=== PATIENT | male | born 1945 | race Caucasian/White ===

== ENCOUNTER → 2023-03-19 11:37 | Outpatient (CLI) | payer MEDICARE, SELFPAY ==
--- NOTE | ~2023-03-19 | XR_ITS ---
Clinical Indication: Cough PA and lateral views of the chest: Comparison: None Findings: Moderate right pleural effusion and small left pleural effusion present. There is interstit ial pulmonary edema pattern.. Cardiomediastinal silhouette is within normal limits. Bones and soft t issues are unremarkable. Impression: Moderate right pleural effusion and small left pleural effusion, with interstitial pulmonary edema pa ttern. Reviewed, dictated and finalized at location . Impression: Moderate right pleural effusion and small left pleural effusion, with interstit ial pulmonary edema pattern.
== END ==
PROVIDERS: PCP Nurse Practitioner Family; Visit Provider Nurse Practitioner Family
DX: R05.9 Cough, unspecified (principal); R06.02 Shortness of breath; J90 Pleural effusion, not elsewhere classified; J81.1 Chronic pulmonary edema
CPT/HCPCS: 71046

== ENCOUNTER 2023-03-19 14:27 | Inpatient (IN) | payer MEDICARE, SELFPAY ==
[2023-03-19] VITALS (10 sets, daily range): BP systolic 126–150; BP diastolic 61–76; PULSE 67–79; RESP 20–28; TEMP 36.2–36.8; O2SAT 94–100; BMI 28.5
--- NOTE | ~2023-03-19 | XR_ITS ---
XR chest 1V portable DATE: 03/21/2023 09:11 INDICATION: Effusions TECHNIQUE: Portable upright AP views on 03/21/2023 at 0903 hours COMPARISON: 03/19/2023 PA and lateral chest FINDINGS: There is pulmonary vascular congestion and redistribution. There are bilateral pulmonary Ke rley B-lines. There is evidence of minor fissure. There are bilateral pleural effusions. The findings are consistent with congestive changes. There are bibasilar infiltrates and/or atelectasis. There is diminished right pleural effusion following 03/20/2023 thoracentesis. No pneumothorax. Degenerative spurring and mild dextroscoliosis of the thoracic spine. Osteopenia. IMPRESSION: Diminished right pleural effusion following 03/20/2023 thoracentesis; no pneumothorax Congestive changes including pulmonary interstitial and subpleural edema and bilateral mild pleural e ffusions Prominent bibasilar infiltrate and/atelectasis Reviewed, dictated and finalized at location B. IMPRESSION: Diminished right pleural effusion following 03/20/2023 thoracentesis ; no pneumothorax Congestive changes including pulmonary interstitial and subpleural edema and bi lateral mild pleural effusions Prominent bibasilar infiltrate and/atelectasis
--- NOTE | ~2023-03-19 | CT_ITS ---
EXAMINATION: CT abdomen pelvis w con DATE: 03/21/2023 15:40 INDICATION: Periaortic lymphadenopathy. TECHNIQUE: Computed tomography (CT) of the abdomen and pelvis was performed with 100 mL Omnipaque 350 intravenous contrast. Automated exposure control and iterative reconstruction technique were employe d. The dose-length product was 600.07 mGy-cm. COMPARISON: Chest CT 03/21/2023 FINDINGS: There are moderate-sized pleural effusions. There is dependent atelectasis bilaterally. The re is bilateral smooth septal thickening, consistent with pulmonary edema. Calcified bilateral lung n odules and calcified hilar lymph nodes are consistent with old granulomatous disease. There are cysts in the liver measuring up to 9 mm. Calcifications in the spleen are consistent with old granulomatou s disease. The gallbladder is normal. 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 The adrenal glands are normal. There is cortical thinning of the kidneys. There a re cysts in the kidneys measuring up to 3.0 cm on the right. There are brachytherapy seeds in the pro state. The prostate is mildly enlarged. There is an anastomosis in the rectosigmoid. There are change s of partial colectomy. There are no dilated loops of bowel. There are umbilical and supraumbilical v entral hernias containing fat. There is calcified atherosclerosis of the aorta and many of the other arteries. There is soft tissue thickening around the common iliac arteries, abdominal aorta, and thor acic aorta. This tissue is contiguous with thickened lower thoracic paraspinal soft tissue. There is soft tissue thickening around the kidneys, proximal ureters, renal vessels, and inferior vena cava. T here are mildly enlarged bilateral external iliac lymph nodes. There is subcutaneous fat stranding in the lower anterior abdominal wall, likely inflammation. There is sclerosis in T10 vertebral body. IMPRESSION: 1. Abnormal soft tissue in the posterior mediastinum and retroperitoneum suspicious for lymphoma. 2. Sclerotic lesion in T10 vertebral body suspicious for metastatic disease or lymphoma. 3. Mildly enlarged bilateral external iliac lymph nodes, which are indeterminate for lymphoma. 4. Pulmonary edema and moderate-sized pleural effusions. Reviewed, dictated and finalized at location A. IMPRESSION: 1. Abnormal soft tissue in the posterior mediastinum and retroperitoneum suspic ious for lymphoma. 2. Sclerotic lesion in T10 vertebral body suspicious for metastatic disease or lymphoma. 3. Mildly enlarged bilateral external iliac lymph nodes, which are indeterminat e for lymphoma. 4. Pulmonary edema and moderate-sized pleural effusions.
--- NOTE | ~2023-03-19 | US_ITS ---
EXAMINATION: US thoracentesis DATE: 03/20/2023 13:59 INDICATION: pleural effusion TECHNIQUE: The procedure and its risks, benefits, and alternatives were discussed with the patient. P otential risks discussed included bleeding, infection, and pneumothorax. The patient understood the r isks and agreed to proceed. The skin was prepped and draped in sterile fashion. 1% lidocaine was used for local anesthesia. Under ultrasound guidance, a 5 Fr catheter with trochar was advanced into the right pleural effusion. Fluid was aspirated. The catheter was removed, and a dressing was applied. Th ere were no immediate complications. FINDINGS: Ultrasound images demonstrate a right pleural effusion and the catheter within the fluid. IMPRESSION: 1. Successful ultrasound-guided thoracentesis yielding 1000 mL of clear, yellow fluid. Reviewed, dictated and finalized at location A. IMPRESSION: 1. Successful ultrasound-guided thoracentesis yielding 1000 mL of clear, yello w fluid.
--- NOTE | ~2023-03-19 | XR_ITS ---
EXAMINATION: [id number] DATE: 03/20/2023 14:06 INDICATION: Right pleural effusion status post thoracentesis. TECHNIQUE: Frontal and lateral views of the chest were obtained. COMPARISON: Chest 2 views 03/19/2023 FINDINGS: There is a diffuse interstitial pattern, consistent with mild pulmonary edema. There are sm all pleural effusions. There are airspace opacities at the lung bases, likely atelectasis. No pneumot horax. The heart size is normal. IMPRESSION: 1. Mild pulmonary edema. 2. Small pleural effusions with improvement on the right status post thoracentesis. Reviewed, dictated and finalized at location A. IMPRESSION: 1. Mild pulmonary edema. 2. Small pleural effusions with improvement on the right status post thoracente sis.
--- NOTE | ~2023-03-19 | CT_ITS ---
CT Scan of the Chest without Contrast: Clinical Indication: Pleural effusions Technique: Contiguous sections were acquired throughout the chest without intravenous contrast. Dose reduction technique was used on this scan by utilizing automated exposure control and iterative recon struction technique. The dose-length product (DLP) was 247.15 mGy-cm. Findings: There is no evidence of any significant mediastinal, hilar or axillary lymphadenopathy. Coronary mariama ry calcifications are present. No aortic aneurysm seen. No pericardial effusion. Moderate right pleural effusion and [id number] left pleural effusion are present. There is int erstitial thickening and mild patchy groundglass opacity may relate lungs. There is also diffuse subp leural reticulation in the aerated lungs. There is mild bibasilar compressive/passive atelectasis. Images through the upper abdomen reveal no abnormalities. There is an amorphous sclerotic lesion within the left side of the T10 vertebral body (sagittal image 68). Impression: Moderate right pleural effusion and [id number] left pleural effusion with mild bibasilar atele ctasis. Associated interstitial pulmonary edema, possible minimal alveolar component. Diffuse subpleural reticulation raises the possibility of mild underlying chronic interstitial diseas e. Amorphous sclerotic lesion in the T10 vertebral body, nonspecific. Osteoblastic or treated metastasis is a consideration, though no other osseous lesions are identified. MRI and/or bone scan could be co nsidered for further imaging evaluation. Correlation with [facility] other [facility] would also be very useful to assess for chronicity of this lesion. Reviewed, dictated and finalized at [facility]. Impression: Moderate right pleural effusion and [id number] left pleural effusion wit h mild bibasilar atelectasis. Associated interstitial pulmonary edema, possible minimal alveolar component. Diffuse subpleural reticulation raises the possibility of mild underlying chron ic interstitial disease. Amorphous sclerotic lesion in the T10 vertebral body, nonspecific. Osteoblastic or treated metastasis is a consideration, though no other osseous lesions are identified. MRI and/or bone scan could be considered for further imaging evalua tion. Correlation with any other prior exams at outside institutions would also be very useful to assess for chronicity of this lesion.
[2023-03-19 16:48] LABS: Basophils Percent Auto 0.3 % (0.2-1.2); Eosinophils Absolute Auto 0.1 K/mm3 (0-0.3); Eosinophils Percent Auto 1.1 % (0-4.4); Hematocrit 28.9 % (42.0-52.0); Hemoglobin 9.3 g/dL (14.0-18.0); Immature Granulocyte Absolute 0.33 K/mm3 (0.00-0.031); Immature Granulocyte Percent A 4.7 % (0-0.5); Lymphocytes Absolute Auto 2.53 K/mm3 (0.9-3.2); Lymphocytes Percent Auto 36.3 % (18.3-44.2); Mean Corpuscular HGB Conc 32.2 g/dl (32-36); Mean Corpuscular Hemoglobin 33.3 pg (26-34); Mean Corpuscular Volume 103.6 fl (80-100); Mean Platelet Volume 10.4 fl (7.4-10.4); Monocytes Absolute Auto 0.8 K/mm3 (0.1-0.6); Monocytes Percent Auto 11.5 % (2.6-8.5); Neutrophils Absolute Auto 3.2 K/mm3 (1.3-6.7); Neutrophils Percent Auto 46.1 % (45.5-73.1); Nucleated Red Blood Cells Absolute Auto 0.2 K/mm3 (0.0-0.012); Nucleated Red Blood Cells Perc 3.3 % (0.0-0.2); Platelet Count Result 369 k/mm3 (150-375); Red Blood Count 2.79 M/mm3 (4.6-6.20); Red Cell Distribution Width 28.2 % (11.5-14.5)
[2023-03-19 16:54] LABS: Alanine Aminotransferase 15 U/L (6-50); Albumin Level 3.6 g/dL (3.5-5.1); Alkaline Phosphatase 58 U/L (38-126); Anion Gap 5 mmol/L (8-16); Aspartate Amino Transferase 18 U/L (17-59); Bilirubin,Total 0.5 mg/dL (0.2-1.3); Blood Urea Nitrogen 23 mg/dL (9-20); Calcium 9.1 mg/dL (8.4-10.2); Carbon Dioxide 29 mmol/L (22-30); Chloride 105 mmol/L (98-107); Estimated CRCL calculation 34 ml/min; Estimated Glomerular Filt Rate 45; Glucose 219 mg/dL (65-110); Potassium 4.7 mmol/L (3.4-5.0); Sodium 139 mmol/L (137-145)
[2023-03-19 17:05] LABS: NT Pro B Type Natriuretic Pept 200 pg/mL (19.9-100); Troponin I < 0.012 ng/mL (0.000-0.034)
[2023-03-19 17:13] LABS: Platelet Estimate Adequate (Adequate)
[2023-03-19 17:15] LABS: Anisocytosis 3+ (NORMAL); Hypochromasia 1+ (NORMAL); Schistocytes None Seen (NORMAL)
[2023-03-19 17:16] LABS: Macrocytosis 2+ (NORMAL)
--- NOTE | 2023-03-19 17:41 | ED.URI ---
HPI - URI/Sore Throat General Chief Complaint: Upper Respiratory Infection <CASTILLO Cm Last Filed: 03/19/23 18:54> Stated Complaint: sent from PCP after chest x-ray <CASTILLO Cm Last Filed: 03/19/23 18:54> Time Seen by Provider: 03/19/23 16:14 <CASTILLO Cm Last Filed: 03/19/23 18:54> Source: patient <CASTILLO Cm Last Filed: 03/19/23 18:54> Mode of arrival: ambulatory <CASTILLO Cm Last Filed: 03/19/23 18:54> Limitations: no limitations <CASTILLO Cm Last Filed: 03/19/23 18:54> History of Present Illness HPI Narrative: Patient is a 78-year-old male who presents to the ED with report of abnormal chest x-ray. Patient reports having chronic shortness of breath for the last several years, stating it occurs at random. He notes he typically walks a mile and 1/2/day and does not feel increasingly winded with this. He does feel he has been having more frequent episodes of shortness of breath over the last week and a half. Patient had a routine appointment with his primary care doctor today and an outpatient chest x-ray was performed. Chest x-ray showed a moderate right pleural effusion and small left pleural effusion with interstitial edema. Patient was then referred here for further evaluation. Patient denies history of CHF. He does report minimal edema to his ankles bilaterally. Denies any chest pain. Denies any fevers. Denies sick contacts. <CASTILLO Cm Last Filed: 03/19/23 18:54> Related Data Home Medications: Home Medications Medication Instructions Recorded Confirmed folic acid 1 mg tablet 1 mg PO DAILY 12/18/20 03/19/23 sildenafil 25 mg tablet (Viagra) 25 mg PO DAILY PRN 12/18/20 03/19/23 <CASTILLO Cm Last Filed: 03/19/23 18:54> Allergies/Adverse Reactions: Allergies Allergy/AdvReac Type Severity Reaction Status Date / Time No Known Allergies Allergy Verified 03/19/23 14:28 <Taylor Sorensen PA-C - Last Filed: 03/19/23 18:54> Review of Systems Review of Systems: CONSTITUTIONAL: Denies fever, chills, or sweats. ENT: Denies rhinorrhea, congestion, sore throat. CARDIOVASCULAR: See HPI. RESPIRATORY: See HPI. GASTROINTESTINAL: Denies abdominal pain, nausea, vomiting. MUSCULOSKELETAL: Denies back pain, joint pain, or myalgia. <Taylor Sorensen PA-C - Last Filed: 03/19/23 18:54> All systems reviewed & are unremarkable except as noted in HPI and below <Taylor Sorensen PA-C - Last Filed: 03/19/23 18:54> PMFSH Past Medical History Medical History: Medical History Bilateral edema of lower extremity BMI 30.0-30.9,adult Cough Decreased exercise tolerance Diabetes type 2, controlled Diabetic eye exam Dr. Clemente 06/29/2020 Fatigue MDS (myelodysplastic syndrome), low grade Prostate cancer Screening for diabetic retinopathy (06/22/21) no diabetic retinopathy 06/22/2021 Shortness of breath Sun-damaged skin <Taylor Sorensen PA-C - Last Filed: 03/19/23 18:54> Family History Family History: Family History Other Diabetes mellitus <Taylor Sorensen PA-C - Last Filed: 03/19/23 18:54> Social History Social History: Social History Smoking status: Former smoker Second hand tobacco smoke exposure: No Alcohol intake: never Substance use: never Substance use type: does not use Current Housing: Decline to Answer Concerned About Future Housing: Decline to Answer Difficulty Paying Gas/Electric Bills: Decline to Answer Difficulty Paying for Meds: Decline to Answer Currently Unemployed: Decline to Answer Education: Decline to Answer Difficulty w/ Childcare or Family Care: Decline to Answer
--- NOTE | 2023-03-19 18:17 | PC.NURSE ---
Patient ambulated from the restroom to his room and his O2 SAT dropped down to 88%. Provider made aware.
--- NOTE | 2023-03-19 18:19 | ECG_ITS ---
Measurements Intervals Kamuela Rate: 70 P: 17 NE: 174 QRS: -22 QRSD: 90 T: 19 QT: 366 QTc: 397 Interpretive Statements SINUS RHYTHM DELAYED PRECORDIAL R/S TRANSITION BORDERLINE T WAVE ABNORMALITY- ANTERIOR LEADS BORDERLINE ECG NO PREVIOUS ECG AVAILABLE FOR COMPARISON Electronically Signed On 03-19-2023 21:02:13 CDT by Tio Philippe D.O.
--- NOTE | 2023-03-19 20:02 | PM.IMHP ---
H&P: HPI History of Present Illness Date/Time: 03/19/23 20:02 Chief Complaint: Abnormal chest x-ray. Narrative: Patient is a 78-year-old male with a past medical history including but not limited to ?MDS treated with Reblozyl [id number], who presents to the ED with report of abnormal chest x-ray.? Patient reports having chronic shortness of breath for the last several years, stating it occurs at random.? He notes he typically walks a mile and 1/2/day and does not feel increasingly winded with this.? He does feel he has been having more frequent episodes of shortness of breath over the last week and a half.? Patient had a routine appointment with his primary care doctor today and an outpatient chest x-ray was performed.? Chest x-ray showed a moderate right pleural effusion and small left pleural effusion with interstitial edema.? Patient was then referred here for further evaluation.? Patient denies history of CHF.? He does report minimal edema to his ankles bilaterally.? Denies any chest pain.? Denies any fevers.? Denies sick contacts. On arrival to the emergency department, the patient is stable and afebrile with fluid vital signs: A temperature of 97? poor oral F, pulse rate 78, respiration 20, blood pressure 140/61, pulse oximetry 100% on room air. He CBC shows a WBC of 7.0, hemoglobin 9.3, hematocrit 28.9 and a platelet count of 369. He has a serum chemistry shows a sodium of 139, potassium 4.7, chloride 105, bicarbonate 29, BUN 23, creatinine 1.5 and a glucose of 219. A chest x-ray reveals moderate right pleural effusion and small left pleural effusion, with interstitial pulmonary edema pattern. The hospital medicine service was consulted for further evaluation management. The patient will be admitted to the medical floor under observation status. Review of Systems Review of Systems: CONSTITUTIONAL: Denies fever, chills, or sweats. ENT: Denies rhinorrhea, congestion, sore throat. CARDIOVASCULAR: See HPI. RESPIRATORY: See HPI. GASTROINTESTINAL: Denies abdominal pain, nausea, vomiting. MUSCULOSKELETAL: Denies back pain, joint pain, or myalgia. All systems reviewed & are unremarkable except as noted in HPI and below PMFSH Past Medical History Medical History Bilateral edema of lower extremity BMI 30.0-30.9,adult Cough Decreased exercise tolerance Diabetes type 2, controlled Diabetic eye exam Dr. Clemente 06/29/2020 Fatigue MDS (myelodysplastic syndrome), low grade Prostate cancer Screening for diabetic retinopathy (06/22/21) no diabetic retinopathy 06/22/2021 Shortness of breath Sun-damaged skin Family History Family History Other Diabetes mellitus Social History Social History Smoking packs per day: 1 Smoking cigarettes per day: 20.0 Years smoked: 15 Smoking pack-years: 15.00 Smoking status: Former smoker Tobacco type: cigarettes Second hand tobacco smoke exposure: No Alcohol intake: never Substance use: never Substance use type: does not use Lack of Transportation: No Lack of Food: Never True Current Housing: I Have Housing Concerned About Future Housing: No Difficulty Paying Gas/Electric Bills: No Difficulty Paying for Meds: No Currently Unemployed: No Education: Bachelor's Degree Difficulty w/ Childcare or Family Care: No Spiritual care concerns: No Meds Home Medications and Allergies Home Medications Medication Instructions Recorded Confirmed Type folic acid 1 mg tablet 1 mg PO DAILY 12/18/20 03/19/23 History sildenafil 25 mg tablet (Viagra) 25 mg PO DAILY PRN ed 12/18/20 03/19/23 History Tradjenta 5 mg tablet (linagliptin) 5 mg PO QAM #90 tabs 11/04/22 03/19/23 Rx nebivolol 5 mg tablet (Bystolic) 5 mg PO DAILY #90 tabs 11/04/22 03/19/23 Rx insulin detemir U-100 100 unit/mL 45 unit (0.45 mL) subcut DAILY #45 0
[2023-03-19 20:42] LABS: Troponin I < 0.012 ng/mL (0.000-0.034)
[2023-03-19 21:24] LABS: Glucose Point of Care 126 mg/dl (65-105)
--- NOTE | 2023-03-19 21:41 | ADMGEN ---
This patient, Matthew Baez, was admitted to Medical Room 347-. Patient/family oriented to hospital policies and general routines including ID bracelet, bed and alarms, visiting hours, pain management, procedures, bathroom and other care routines, personal items, smoking policy, room service/diet, and visiting hours. Information on how to activate the Rapid Response Team has been discussed. Patient/Family are encouraged to report perceived risks to care and to ask questions if they do not understand what they are told or what they should do.
[2023-03-19 23:25] LABS: Troponin I < 0.012 ng/mL (0.000-0.034)
[2023-03-20] VITALS (12 sets, daily range): BP systolic 113–139; BP diastolic 62–87; PULSE 63–84; RESP 16–20; TEMP 36.3–36.7; O2SAT 96–98
[2023-03-20] MEDS: cefTRIAXone 2 GM/NS 100 ML 2 GM/100 ML BAG IVPB (03:19)
--- NOTE | 2023-03-20 06:00 | ECHO_ITS ---
Patient Info Name: Matthew Baez Age: 78 years : 1945 Gender: Male Ht: 67 in Wt: 183 lbs BSA: 2.00 m2 HR: 77 bpm BP: 131 / 87 mmHg Heart Rhythm: Sinus Rhythm Technical Quality: Good Exam Date: 03/20/2023 9:25 AM Exam Location: [facility] Patient Status: Outpatient Admit Date: 03/19/2023 Staff Ordering Physician: Taylor Sorensen PA-C [employer] Supervisor: Car Interiano RDCS Attending Provider: Roel Martel MD Referring Physician: Edu BRANDT; Exam Type: CA echo doppler color flow Study Info Indications - pul.edema/joy pluralal effusion/hypoxia Complete two-dimensional, color flow and Doppler transthoracic echocardiogram is performed. Summary 1. Complete two-dimensional, color flow and Doppler transthoracic echocardiogram is performed. 2. Left ventricular chamber dimension is normal. 3. Left ventricular systolic function is normal, estimated at 60-65%. 4. The left ventricular diastolic function is grade I diastolic dysfunction. 5. E/e' 5 is not elevated. 6. Left atrial chamber dimension is mildly enlarged. 7. There is moderate aortic valve sclerosis. 8. There is trace aortic valve regurgitation. 9. The mitral valve has mildly calcified annulus. 10. There is trace mitral valve regurgitation. 11. There is trace tricuspid valve regurgitation. 12. No pulmonary hypertension, estimated pulmonary arterial systolic pressure is 25 mmHg. Left Ventricle E/e' 5 is not elevated. Left ventricular chamber dimension is normal. Left ventricular systolic function is normal, estimated at 60-65%. The left ventricular diastolic function is grade I diastolic dysfunction. Right Ventricle Right ventricular systolic function is normal and with normal TAPSE 2.5 cm. Right ventricular chamber dimension is normal. Left Atria Left atrial chamber dimension is mildly enlarged. Right Atria Right atrial chamber dimension is normal. Aortic Valve The aortic valve is trileaflet. There is moderate aortic valve sclerosis. There is no aortic valve stenosis. There is trace aortic valve regurgitation. Pulmonic Valve There is no pulmonic regurgitation. Mitral Valve The mitral valve has mildly calcified annulus. There is no mitral valve stenosis. There is trace mitral valve regurgitation. Tricuspid Valve There is trace tricuspid valve regurgitation. No pulmonary hypertension, estimated pulmonary arterial systolic pressure is 25 mmHg. Pericardium/Pleural There is no pericardial effusion. Inferior Vena Cava Normal inferior vena cava with >50% collapse upon inspiration consistent with normal right atrial pressure, 5 mmHg. Aorta The aortic root size at the sinus of Valsalva is normal. Left Ventricular Outflow Tract Name Value Normal LVOT 2D LVOT Diameter 2.0 cm LVOT Doppler LVOT Peak Gradient 5 mmHg LVOT Mean Gradient 3 mmHg LVOT VTI 25 cm LVOT VTI/AV VTI Ratio 0.9 LVOT Stroke Volume 80 ml LVOT CO 6.3 l/min LVOT CI 3.2 l/min/m2 Pulmonic Valve
[2023-03-20 06:27] LABS: Glucose Point of Care 156 mg/dl (65-105)
[2023-03-20 07:38] LABS: Hemoglobin A1C 6.9 % (<5.7)
[2023-03-20 08:27] LABS: Glucose Point of Care 175 mg/dl (65-105)
[2023-03-20] MEDS: FOLIC ACID 1 MG TABLET PO (09:06)
[2023-03-20 09:12] LABS: INR 1.3; Prothrombin Time 16.6 Seconds (11.1-14.7)
[2023-03-20 09:13] LABS: Partial Thromboplastin Time 34.5 SECONDS (22.3-36.8)
--- NOTE | 2023-03-20 11:22 | PM.IMPN ---
Progress Note: A&P Assessment and Plan (1) Pleural effusion: Code(s): J90 - Pleural effusion, not elsewhere classified Status: Acute Assessment and Plan: Pleural effusion male curl in myelodysplastic syndrome. Infection remains the most common cause. Patient will be treated empirically with IV antibiotic with ceftriaxone, pending pleural fluid studies. Currently patient is being treated. Malignant pleural effusion would tend to occur in advance disease. Will proceed to wait thoracentesis and consider pleural biopsy, as the etiology remains unclear. Patient follow-up with heme oncologist Dr. Hassan of patient XR Moderate right pleural effusion and small left pleural effusion, with interstitial pulmonary edema pattern. ECHOCARDIOGRAM 03/20 :?left ventricular systolic function is normal, estimated at 60-65%, no significant valvular disease Consult tube backer and heme oncologist for evaluation treatment (2) Shortness of breath: Code(s): R06.02 - Shortness of breath Status: Acute Assessment and Plan: Patient is saturating well on room air. He is fairly asymptomatic at rest. Will provide oxygen p.r.n.. (3) MDS (myelodysplastic syndrome), low grade: Code(s): D46.20 - Refractory anemia with excess of blasts, unspecified Status: Acute Assessment and Plan: MDS treated with Reblozyl [id number]; consult Hematology-Oncology. Consult heme oncologist for evaluation and treatment during hospitalization (4) Diabetes type 2, controlled: Code(s): E11.9 - Type 2 diabetes mellitus without complications Status: Acute Assessment and Plan: Patient is on Tradjenta. Obtain HGB A1c. Monitor Accu-Chek. (5) BMI 30.0-30.9,adult: Code(s): Z68.30 - Body mass index [BMI] 30.0-30.9, adult Status: Acute Assessment and Plan: Currently patient is overweight. Mild overweight is protective in the setting. (6) Chronic kidney disease, stage 3 (moderate): Code(s): N18.3 - Chronic kidney disease, stage 3 (moderate) Status: Acute Assessment and Plan: Please renally dose medication. Monitor intake and output. Monitor creatinine level. (7) History of colon cancer: Code(s): Z85.038 - Personal history of other malignant neoplasm of large intestine Status: Acute (8) Vitamin D deficiency, unspecified: Code(s): E55.9 - Vitamin D deficiency, unspecified Status: Acute Assessment and Plan: Check vitamin-C level. Plan DVT prophylaxis with Lovenox Code status full code Patient admitted under observation. Subjective Date/time seen: 03/20/23 11:22 Interval history: I saw on exam patient today, patient still has dyspnea, no improvement. Patient denies chest pain, abdomen pain, nausea vomiting diarrhea dysuria. Patient is afebrile, hemodynamically stable, no new issue even over the night Exam Narrative: GENERAL: Elderly, well-nourished, non-toxic, in no acute distress. HEAD: Normocephalic, atraumatic. NECK: Supple. No adenopathy, no masses. RESPIRATORY: Airway patent, respirations nonlabored. Scattered rhonchi. Decreased lung sounds in right lower lobe. Dull percussion of right chest CARDIOVASCULAR: Regular rate and rhythm without murmurs, rubs, or gallops. Pedal pulses 2+ and equal bilaterally. MUSCULOSKELETAL: Moves all extremities. Strength/ROM intact without gross deformities. Trace pedal edema, particularly around ankles, symmetric bilaterally. SKIN: Warm, dry, normal color. No rashes. NEURO: A&O X3. Speech clear. Cranial nerves II-XII grossly intact. Steady gait. No ataxic movements. PSYCHIATRIC: Appropriate mood and affect. Normal interaction. Objective Data Vital Signs Vital Signs: Vital Signs - 24 hr 03/19/23 14:34 03/19/23 16:15 03/19/23 16:06 Temperature 97.1 F L Pulse Rate 78 77 Respiratory Rate 20 24 H Blood Pressure 140/61 147/70 H Pulse Oximetry 100 96 95 Oxygen Delivery Room
[2023-03-20 12:46] LABS: Glucose Point of Care 175 mg/dl (65-105)
[2023-03-20 14:48] LABS: pH Pleural Fluid > 7.500 (7.210-7.500)
[2023-03-20 15:41] LABS: Appearance Pleural Fluid Clear (Clear); Pleural fluid source Pleural fluid
[2023-03-20 15:42] LABS: Color Pleural Fluid Yellow (Colorless)
[2023-03-20 15:43] LABS: Lymphocytes Pleural Fluid 82 %; Macrophages Pleural Fluid 4 %; Mesothelial Cells Pleural Flui 1 %; Monocytes Pleural Fluid 10 %; Neutrophils Pleural Fluid 3 % (0-25)
[2023-03-20 15:44] LABS: Nucleated Cell Pleural Fluid 567 /uL (0-1000); RBC Pleural Fluid < 2000 /uL (0-0)
[2023-03-20] MEDS: NEBIVOLOL HCL 5 MG TABLET PO (15:47)
[2023-03-20 17:52] LABS: Glucose Point of Care 208 mg/dl (65-105)
[2023-03-20] MEDS: INSULIN ASPART (*BKC) 100 UNITS/ML SUB-Q (17:59)
[2023-03-20] MEDS: HEPARIN SODIUM 5,000 UNITS/ML VIAL 5000 UNITS SUB-Q (20:22)
[2023-03-20 20:52] LABS: Glucose Point of Care 183 mg/dl (65-105)
[2023-03-21] VITALS (8 sets, daily range): BP systolic 95–107; BP diastolic 57–75; PULSE 68–82; RESP 16–20; TEMP 36–36.5; O2SAT 96–100
[2023-03-21 07:29] LABS: Basophils Percent Auto 0.3 % (0.2-1.2); Eosinophils Absolute Auto 0.1 K/mm3 (0-0.3); Hematocrit 30.4 % (42.0-52.0); Hemoglobin 9.7 g/dL (14.0-18.0); Immature Granulocyte Absolute 0.21 K/mm3 (0.00-0.031); Immature Granulocyte Percent A 2.7 % (0-0.5); Lymphocytes Absolute Auto 2.94 K/mm3 (0.9-3.2); Lymphocytes Percent Auto 38.2 % (18.3-44.2); Mean Corpuscular HGB Conc 31.9 g/dl (32-36); Mean Corpuscular Hemoglobin 32.7 pg (26-34); Mean Corpuscular Volume 102.4 fl (80-100); Mean Platelet Volume 11.2 fl (7.4-10.4); Monocytes Absolute Auto 0.8 K/mm3 (0.1-0.6); Monocytes Percent Auto 10.6 % (2.6-8.5); Neutrophils Absolute Auto 3.6 K/mm3 (1.3-6.7); Neutrophils Percent Auto 47.2 % (45.5-73.1); Nucleated Red Blood Cells Absolute Auto 0.2 K/mm3 (0.0-0.012); Nucleated Red Blood Cells Perc 2.6 % (0.0-0.2); Platelet Count Result 375 k/mm3 (150-375); Red Blood Count 2.97 M/mm3 (4.6-6.20); Red Cell Distribution Width 28.6 % (11.5-14.5); White Blood Count 7.7 K/mm3 (4.5-10.0)
[2023-03-21 07:31] LABS: Anion Gap 8 mmol/L (8-16); Blood Urea Nitrogen 20 mg/dL (9-20); Calcium 8.5 mg/dL (8.4-10.2); Carbon Dioxide 22 mmol/L (22-30); Chloride 108 mmol/L (98-107); Estimated CRCL calculation 39 ml/min; Estimated Glomerular Filt Rate 53; Glucose 160 mg/dL (65-110); Lactate Dehydrogenase 98 U/L (120-246); Potassium 4.2 mmol/L (3.4-5.0); Sodium 138 mmol/L (137-145)
--- NOTE | 2023-03-21 08:10 | PDONCCN ---
HPI - Date of Consult Date/Time: 03/21/23 08:10 Requesting Physician: Ramon Martel MD Primary Care Provider: Kemi Liz NP - Consult Narrative Reason for consult: Myelodysplastic syndrome Narrative: Matthew Baez is a 78 year old male with history of myelodysplastic syndrome diagnosed more than 1 year ago has been on Luspatercept treatment for more than 1 year duration under care of Dr. Dutch Sutherland. Patient is due for another injection next week. Patient also has a history of colon cancer diagnosed more than 20 years ago status post resection. He came into the hospital with shortness of breath along with tiredness and fatigue. Chest x-ray was abnormal. Chest x-ray showed right-sided pleural effusion. He underwent thoracentesis with removal of 1 L of clear yellow fluid. His breathing has improved. Labs was quite stable with hemoglobin of 9.3 which is about his baseline. He denies any bleeding and bruising. He has no other new complaints. Review of Systems - Review of Systems All systems reviewed & are unremarkable except as noted in HPI and [facility] Medical History: Medical History (Last Reviewed 03/20/23 @ 02:56 by Cynthia Tobar MD) Bilateral edema of lower extremity BMI 30.0-30.9,adult Cough Decreased exercise tolerance Diabetes type 2, controlled Diabetic eye exam Dr. Clemente 06/29/2020 Fatigue MDS (myelodysplastic syndrome), low grade Prostate cancer Screening for diabetic retinopathy Onset Date: 06/22/21 no diabetic retinopathy 06/22/2021 Shortness of breath Sun-damaged skin Family History: Family History (Last Reviewed 03/20/23 @ 02:56 by Cynthia Tobar MD) Other Diabetes mellitus - Social History Social History: Social History (Last Reviewed 03/20/23 @ 02:56 by Cynthia Tobar MD) Alcohol Use: Alcohol intake: never Substance Use: Substance use: never Substance use type: does not use Others: Spiritual care concerns: No Smoking Status: Smoking status: Former smoker Tobacco type: cigarettes Second hand tobacco smoke exposure: No Approximate Smoking End Date: 09/01/1982 Smoking Pack-years: Smoking packs per day: 1 Smoking cigarettes per day: 20.0 Years smoked: 15 Smoking pack-years: 15.00 Social Determinants of Health: Has the Lack of Transportation Kept You From Medical Appointments or From Getting Medications?: No Within the Past 12 Months, Were You Worried Whether Your Food Would Run Out Before You Got Money to Buy More?: Never True What is Your Housing Situation Today?: I Have Housing Are You Worried That in the Next 2 Months, You May Not Have Your Own Housing to Live In?: No Do You Have Trouble Paying Your Heating Or Electricity Bill?: No Do You Have Trouble Paying For Medicines?: No Are You Currently Unemployed and Looking for Work?: No Highest Level of Education Completed: Bachelor's Degree Do You Have Trouble With Childcare or the Care of a Family Member?: No Exam - Vital Signs Vital Signs - 24 hr 03/20/23 13:42 03/20/23 13:58 03/20/23 14:00 Temperature 36.3 C L Pulse Rate 84 Respiratory Rate 16 Blood Pressure 133/66 116/62 113/64 Pulse Oximetry 97 98 Oxygen Delivery 03/20/23 15:47 03/20/23 12:00 03/20/23 16:00 Temperature Pulse Rate 78 72 63 Respiratory Rate Blood Pressure Pulse Oximetry Oxygen Delivery 03/20/23 20:22 03/20/23 20:00 03/20/23 20:00 Temperature 36.6 C Pulse Rate 75 71 75 Respiratory Rate 18 18 Blood Pressure 139/64 Pulse Oximetry 97 97 Oxygen Delivery Room Air 03/21/23 00:00 Temperature Pulse Rate 68 Respiratory Rate Blood Pressure Pulse Oximetry Oxygen Delivery - Exam HEENT: EOMI, PERRLA, mucous membranes moist and pink Neck: supple. No: JVD Lungs: clear to auscultation, normal air movement Heart: no murmurs, gallops, or rubs, regular rhythm, regular ra
[2023-03-21 08:13] LABS: Glucose Point of Care 169 mg/dl (65-105)
[2023-03-21 08:19] LABS: Hypochromasia 1+ (NORMAL); Large Platelets Present; Platelet Clumps Present; Platelet Estimate Adequate (Adequate)
[2023-03-21 08:20] LABS: Anisocytosis 2+ (NORMAL); Macrocytosis 1+ (NORMAL); Microcytosis 2+ (NORMAL); Schistocytes None Seen (NORMAL)
--- NOTE | 2023-03-21 08:40 | PM.IMPN ---
Progress Note: A&P Assessment and Plan (1) Pleural effusion: Code(s): J90 - Pleural effusion, not elsewhere classified Status: Acute Assessment and Plan: Pleural effusion male curl in myelodysplastic syndrome. Infection remains the most common cause. Patient will be treated empirically with IV antibiotic with ceftriaxone, pending pleural fluid studies. Currently patient is being treated. Malignant pleural effusion would tend to occur in advance disease. Will proceed to wait thoracentesis and consider pleural biopsy, as the etiology remains unclear. Patient follow-up with heme oncologist Dr. Hassan of patient XR Moderate right pleural effusion and small left pleural effusion, with interstitial pulmonary edema pattern. ECHOCARDIOGRAM 03/20 :?left ventricular systolic function is normal, estimated at 60-65%, no significant valvular disease Consult charging car operator and heme oncologist for evaluation treatment Pleural effusion analysis shows yellow clear fluid, pleural nucleated cell 567 pending protein glucose and amylase (2) Shortness of breath: Code(s): R06.02 - Shortness of breath Status: Acute Assessment and Plan: Patient is saturating well on room air. He is fairly asymptomatic at rest. Will provide oxygen p.r.n.. (3) MDS (myelodysplastic syndrome), low grade: Code(s): D46.20 - Refractory anemia with excess of blasts, unspecified Status: Acute Assessment and Plan: MDS treated with Reblozyl [id number]; consult Hematology-Oncology. Consult heme oncologist for evaluation and treatment during hospitalization (4) Diabetes type 2, controlled: Code(s): E11.9 - Type 2 diabetes mellitus without complications Status: Acute Assessment and Plan: Patient is on Tradjenta. Obtain HGB A1c. Monitor Accu-Chek. (5) BMI 30.0-30.9,adult: Code(s): Z68.30 - Body mass index [BMI] 30.0-30.9, adult Status: Acute Assessment and Plan: Currently patient is overweight. Mild overweight is protective in the setting. (6) Chronic kidney disease, stage 3 (moderate): Code(s): N18.3 - Chronic kidney disease, stage 3 (moderate) Status: Acute Assessment and Plan: Please renally dose medication. Monitor intake and output. Monitor creatinine level. (7) History of colon cancer: Code(s): Z85.038 - Personal history of other malignant neoplasm of large intestine Status: Acute (8) Vitamin D deficiency, unspecified: Code(s): E55.9 - Vitamin D deficiency, unspecified Status: Acute Assessment and Plan: Check vitamin-C level. (9) Interstitial lung disease: Code(s): J84.9 - Interstitial pulmonary disease, unspecified Status: Acute Assessment and Plan: CT shows a possible chronic interstitial lung disease disease And also patient has alveolar infiltrate, possible pneumonia Studies of interstitial lung disease other per charging car operator, also started Levaquin IV per charging car operator CT scan also reports n amorphous sclerotic lesion within the left side of the T10 vertebral body. CT abdomen pelvis with contrast ordered per charging car operator (10) Community acquired pneumonia due to Haemophilus influenzae: Code(s): J14 - Pneumonia due to Hemophilus influenzae Status: Acute Plan DVT prophylaxis with Lovenox Code status full code Patient admitted under observation. Subjective Date/time seen: 03/21/23 08:40 Interval history: I saw on exam patient today, source and this is all done yesterday, patient feels dyspnea is improving, patient denies abdomen pain, back pain, focal weakness Patient is afebrile, hemodynamically stable, no new issue even over the night Exam Narrative: GENERAL: Elderly, well-nourished, non-toxic, in no acute distress. HEAD: Normocephalic, atraumatic. NECK: Supple. No adenopathy, no masses. RESPIRATORY: Airway patent, respirations nonlabored. Scattered rhonchi. Decreased grzegorz
[2023-03-21] MEDS: NEBIVOLOL HCL 5 MG TABLET PO (09:10)
[2023-03-21] MEDS: FOLIC ACID 1 MG TABLET PO (09:11)
[2023-03-21] MEDS: INSULIN GLARGINE (*BKC) 100 UNITS/ML 45 UNITS SUB-Q (09:13)
[2023-03-21 10:38] LABS: Carcinoembryonic Antigen 0.4 ng/mL (0.0-3.0)
[2023-03-21 11:02] LABS: PCO2 ABG 29.3 mmHg (35.0-45.0); pH ABG 7.472 (7.350-7.450)
[2023-03-21 11:03] LABS: Base Excess ABG -1.8 mEq/l (+/-2.0); HCO3 ABG 20.9 mEq/l (22.0-26.0); Oxygen Saturation ABG 97.8 % (95.0-100.0); PO2 ABG 96.2 mmHg (80.0-100.0); Total Hemoglobin 11.2 g/dL (12.0-18.0)
[2023-03-21 11:04] LABS: Device ROOM AIR; Modified Allen's Test Pass; Site Drawn RIGHT RADIAL
[2023-03-21 11:05] LABS: Alveolar/Arterial O2 Gradient 18.4 mmHg; Oxygen Content ABG 15.2 %vol (16.0-22.0)
[2023-03-21 11:06] LABS: Fractional Inspired Oxygen 21 %; PO2 FiO2 Ratio Arterial Blood 4.58 %
--- NOTE | 2023-03-21 11:13 | PM.CNPUL ---
Assessment and Plan Assessment and plan (1) Pleural effusion: Code(s): J90 - Pleural effusion, not elsewhere classified Status: Acute Assessment and Plan: Patient with a history of colon cancer age 49, prostate cancer age 58, skin cancer age 75 and low-grade myelodysplastic syndrome on luspaterect injection every 3 weeks. Patient has mild worsening dyspnea on exertion for 1 year, 6 months of dizziness and intermittent shortness of breath and pedal edema. Presents 03/19/23 with a moderate right-sided and small left-sided pleural effusion. His required no supplemental oxygen during this admission. ABG on room air 7. so there is no hypercarbic respiratory failure. Thyroid studies are normal. LFTs are normal suggesting the absence of liver disease. Creatinine has improved to 1.3. Echocardiogram shows normal LV function with grade 1 diastolic dysfunction normal right ventricular size and function normal right atrial size with a PASP of 25. Per my later chewer review there have been no pleural effusions associated with luspaterect. On 03/20 the patient underwent a right thoracentesis with 1000 mL of clear yellow fluid removed. The patient tells me that it was easier for him to breathe after this fluid was removed. G stain was few white blood cells with no organisms seen. PH was greater than 7.50, red blood cells 2000, white blood cells 567 with a differential of neutrophils 3, lymphocytes 82, monocytes 10, macrophages 4, mesothelial cells 1 %. Chemistries and cytology are pending. Post thoracentesis chest x-ray demonstrated the right pleural effusion occupied approximately 20% of the right hemithorax. Currently this represents a lymphocytic non infectious pleural effusion. 03/21: Repeat chest x-ray shows no rapid reaccumulation of the right-sided pleural effusion which now occupies about 20% of the right hemithorax. CT scan of the chest demonstrates moderate right pleural effusion small to moderate left pleural effusion with bibasilar atelectasis, pulmonary edema and diffuse subpleural reticulation suggesting chronic interstitial lung disease. Sclerotic lesion of T10. There is no honeycombing. Will obtain MRI of thoracic spine. Currently the patient has no infectious complaints, is afebrile, no leukocytosis and has been treated with ceftriaxone since 03/20. I would continue these while awaiting cultures. Low likelihood that this is a pneumonia but I agree with treatment for community-acquired pneumonia while awaiting further studies and I will add levaquin 750 Q day X 7 days. QuantiFERON gold is pending. Regarding possibility of interstitial lung disease, I will since serologies looking for etiology of interstitial lung disease. I will order a CRP, ESR, MAI screen that includes 11 different auto antibodies, an ANCA screen, a rheumatoid factor, anti CCP antibody, hypersensitivity pneumonitis panel, a CPK, an aldolase level, and myomarker 3 plus profile. Regarding possible fluid overload will initiate Lasix 20 mg p.o. q.day. Discussed with Dr. Monroe, will follow with you. History of Present Illness History of Present Illness Consult date: 03/21/23 Chief complaint: Sergio Pleural Effusions/Pulmonary Edema/Acute Ambula Narrative: 03/21/2023: This is a new pulmonary consult for bilateral pleural effusions. 78-year-old man with a history of diabetes, prior tobacco use, myelodysplastic syndrome, colon cancer, prostate cancer, left ear skin cancer presents with right greater than left pleural effusions. Regarding patient's myelodysplastic syndrome he is followed by Hematology-Oncology last office visit note on 03/03/2023 states he has a low-grade myelodysplastic syndrome with refractory anemia that has failed Procrit and Aranesp. He was intolerant to azacitidine. He has been on Luspaterect 1 milligram/kilogram since September of 2021 every 3 weeks. He has received 2 blood transfusions in his life the last of which was in
[2023-03-21 11:39] LABS: Free T4 Free Thyroxine 1.56 ng/mL (0.78-2.19)
--- NOTE | 2023-03-21 12:29 | PC.NURSE ---
Pt refusing to get afternoon blood sugar. States he does not want to be poked anymore.
[2023-03-21 12:36] LABS: CRP 2.9 mg/dL (<1.0); Creatine Kinase 39 U/L (55-170)
[2023-03-21 12:56] LABS: Erythrocyte Sedimentation Rate 134 mm/hr (0-20)
[2023-03-21] MEDS: levoFLOXacin 750 MG/D5W 150 ML 750 MG/150 ML BAG 100 MG IVPB (13:14)
[2023-03-21] MEDS: HEPARIN SODIUM 5,000 UNITS/ML VIAL 5000 UNITS SUB-Q ×2 (13:19→21:14)
--- NOTE | 2023-03-21 16:52 | PC.NURSE ---
Pt refusing blood sugar checks prior to dinner. aware.
[2023-03-22] VITALS: PULSE 70
[2023-03-22 04:00] VITALS: PULSE 69
[2023-03-22] MEDS: HEPARIN SODIUM 5,000 UNITS/ML VIAL 5000 UNITS SUB-Q (05:36)
[2023-03-22] MEDS: cefTRIAXone 2 GM/NS 100 ML 2 GM/100 ML BAG IVPB (05:37)
[2023-03-22 05:56] VITALS: BP 115/58; PULSE 70; RESP 16; TEMP 36.6; O2SAT 95
[2023-03-22 06:31] LABS: Basophils Percent Auto 0.2 % (0.2-1.2); Eosinophils Absolute Auto 0.1 K/mm3 (0-0.3); Eosinophils Percent Auto 1.3 % (0-4.4); Hematocrit 26.2 % (42.0-52.0); Hemoglobin 8.5 g/dL (14.0-18.0); Immature Granulocyte Absolute 0.14 K/mm3 (0.00-0.031); Immature Granulocyte Percent A 2.3 % (0-0.5); Lymphocytes Absolute Auto 2.45 K/mm3 (0.9-3.2); Lymphocytes Percent Auto 40.8 % (18.3-44.2); Mean Corpuscular HGB Conc 32.4 g/dl (32-36); Mean Corpuscular Hemoglobin 32.6 pg (26-34); Mean Corpuscular Volume 100.4 fl (80-100); Monocytes Absolute Auto 0.6 K/mm3 (0.1-0.6); Monocytes Percent Auto 10.7 % (2.6-8.5); Neutrophils Absolute Auto 2.7 K/mm3 (1.3-6.7); Neutrophils Percent Auto 44.7 % (45.5-73.1); Nucleated Red Blood Cells Absolute Auto 0.2 K/mm3 (0.0-0.012); Nucleated Red Blood Cells Perc 2.7 % (0.0-0.2); Platelet Count Result 318 k/mm3 (150-375); Red Blood Count 2.61 M/mm3 (4.6-6.20)
[2023-03-22 06:39] LABS: Anion Gap 7 mmol/L (8-16); Blood Urea Nitrogen 26 mg/dL (9-20); Calcium 8.1 mg/dL (8.4-10.2); Carbon Dioxide 22 mmol/L (22-30); Chloride 108 mmol/L (98-107); Estimated CRCL calculation 32 ml/min; Estimated Glomerular Filt Rate 42; Glucose 111 mg/dL (65-110); Sodium 137 mmol/L (137-145)
[2023-03-22 07:03] LABS: Platelet Estimate Adequate (Adequate)
[2023-03-22 07:04] LABS: Hypochromasia 2+ (NORMAL); Macrocytosis 1+ (NORMAL); Schistocytes None Seen (NORMAL)
[2023-03-22 08:14] LABS: Glucose Point of Care 143 mg/dl (65-105)
--- NOTE | 2023-03-22 09:00 | PM.IMPN ---
Progress Note: A&P Assessment and Plan (1) Pleural effusion: Code(s): J90 - Pleural effusion, not elsewhere classified Status: Acute Assessment and Plan: Pleural effusion male curl in myelodysplastic syndrome. Infection remains the most common cause. Patient will be treated empirically with IV antibiotic with ceftriaxone, pending pleural fluid studies. Currently patient is being treated. Malignant pleural effusion would tend to occur in advance disease. Will proceed to wait thoracentesis and consider pleural biopsy, as the etiology remains unclear. Patient follow-up with heme oncologist Dr. Hassan of patient XR Moderate right pleural effusion and small left pleural effusion, with interstitial pulmonary edema pattern. ECHOCARDIOGRAM 03/20 :?left ventricular systolic function is normal, estimated at 60-65%, no significant valvular disease Consult plate stacker and heme oncologist for evaluation treatment Pleural effusion analysis shows yellow clear fluid, pleural nucleated cell 567 pending protein glucose and amylase CT scan September 21 reveals Pulmonary edema and moderate-sized pleural effusions Add lasix 40 mg iv daily (2) Shortness of breath: Code(s): R06.02 - Shortness of breath Status: Acute Assessment and Plan: Patient is saturating well on room air. He is fairly asymptomatic at rest. Will provide oxygen p.r.n.. (3) MDS (myelodysplastic syndrome), low grade: Code(s): D46.20 - Refractory anemia with excess of blasts, unspecified Status: Acute Assessment and Plan: MDS treated with Reblozyl [id number]; consult Hematology-Oncology. Consult heme oncologist for evaluation and treatment during hospitalization (4) Diabetes type 2, controlled: Code(s): E11.9 - Type 2 diabetes mellitus without complications Status: Acute Assessment and Plan: Patient is on Tradjenta. Obtain HGB A1c. Monitor Accu-Chek. (5) BMI 30.0-30.9,adult: Code(s): Z68.30 - Body mass index [BMI] 30.0-30.9, adult Status: Acute Assessment and Plan: Currently patient is overweight. Mild overweight is protective in the setting. (6) Chronic kidney disease, stage 3 (moderate): Code(s): N18.3 - Chronic kidney disease, stage 3 (moderate) Status: Acute Assessment and Plan: Please renally dose medication. Monitor intake and output. Monitor creatinine level. (7) History of colon cancer: Code(s): Z85.038 - Personal history of other malignant neoplasm of large intestine Status: Acute (8) Vitamin D deficiency, unspecified: Code(s): E55.9 - Vitamin D deficiency, unspecified Status: Acute Assessment and Plan: Check vitamin-C level. (9) Interstitial lung disease: Code(s): J84.9 - Interstitial pulmonary disease, unspecified Status: Acute Assessment and Plan: CT shows a possible chronic interstitial lung disease disease And also patient has alveolar infiltrate, possible pneumonia Studies of interstitial lung disease other per plate stacker, also started Levaquin IV per plate stacker, change to oral Levaquin 750 mg for 8 more days for per plate stacker recommendation (10) Community acquired pneumonia due to Haemophilus influenzae: Code(s): J14 - Pneumonia due to Hemophilus influenzae Status: Acute (11) Lesion of thoracic vertebra: Code(s): M89.9 - Disorder of bone, unspecified Status: Acute Assessment and Plan: CT abdomen pelvis with contrast reveals 1. Abnormal soft tissue in the posterior mediastinum and retroperitoneum suspicious for lymphoma. 2. Sclerotic lesion in T10 vertebral body suspicious for metastatic disease or lymphoma. 3. Mildly enlarged bilateral external iliac lymph nodes, which are indeterminate for lymphoma. Consult his heme oncologist, follow recommendations regarding diagnosis and treatment. I have Discussed patient about the finding, and recommend patient to fo
[2023-03-22 09:14] VITALS: PULSE 67
[2023-03-22] MEDS: NEBIVOLOL HCL 5 MG TABLET PO (09:14)
[2023-03-22] MEDS: FOLIC ACID 1 MG TABLET PO (09:14)
[2023-03-22 09:15] VITALS: PULSE 67; RESP 16; O2SAT 95
[2023-03-22] MEDS: INSULIN GLARGINE (*BKC) 100 UNITS/ML 45 UNITS SUB-Q (09:15)
--- NOTE | 2023-03-22 11:55 | PM.DS ---
DS: Admitting Diagnosis Discharge Date Today Admitting Diagnosis Pleural effusion: ? DS: Discharge Diagnosis Discharge Diagnosis (1) Pleural effusion: Code(s): J90 - Pleural effusion, not elsewhere classified Status: Acute Assessment and Plan: Pleural effusion male curl in myelodysplastic syndrome. Infection remains the most common cause. Patient will be treated empirically with IV antibiotic with ceftriaxone, pending pleural fluid studies. Currently patient is being treated. Malignant pleural effusion would tend to occur in advance disease. Will proceed to wait thoracentesis and consider pleural biopsy, as the etiology remains unclear. Patient follow-up with heme oncologist Dr. Hassan of patient XR Moderate right pleural effusion and small left pleural effusion, with interstitial pulmonary edema pattern. ECHOCARDIOGRAM 03/20 :?left ventricular systolic function is normal, estimated at 60-65%, no significant valvular disease Consult statistical engineer and heme oncologist for evaluation treatment Pleural effusion analysis shows yellow clear fluid, pleural nucleated cell 567 pending protein glucose and amylase CT scan September 21 reveals Pulmonary edema and moderate-sized pleural effusions Add lasix 40 mg iv daily (2) Shortness of breath: Code(s): R06.02 - Shortness of breath Status: Acute Assessment and Plan: Patient is saturating well on room air. He is fairly asymptomatic at rest. Will provide oxygen p.r.n.. (3) MDS (myelodysplastic syndrome), low grade: Code(s): D46.20 - Refractory anemia with excess of blasts, unspecified Status: Acute Assessment and Plan: MDS treated with Reblozyl [id number]; consult Hematology-Oncology. Consult heme oncologist for evaluation and treatment during hospitalization (4) Diabetes type 2, controlled: Code(s): E11.9 - Type 2 diabetes mellitus without complications Status: Acute Assessment and Plan: Patient is on Tradjenta. Obtain HGB A1c. Monitor Accu-Chek. (5) BMI 30.0-30.9,adult: Code(s): Z68.30 - Body mass index [BMI] 30.0-30.9, adult Status: Acute Assessment and Plan: Currently patient is overweight. Mild overweight is protective in the setting. (6) Chronic kidney disease, stage 3 (moderate): Code(s): N18.3 - Chronic kidney disease, stage 3 (moderate) Status: Acute Assessment and Plan: Please renally dose medication. Monitor intake and output. Monitor creatinine level. (7) History of colon cancer: Code(s): Z85.038 - Personal history of other malignant neoplasm of large intestine Status: Acute (8) Vitamin D deficiency, unspecified: Code(s): E55.9 - Vitamin D deficiency, unspecified Status: Acute Assessment and Plan: Check vitamin-C level. (9) Interstitial lung disease: Code(s): J84.9 - Interstitial pulmonary disease, unspecified Status: Acute Assessment and Plan: CT shows a possible chronic interstitial lung disease disease And also patient has alveolar infiltrate, possible pneumonia Studies of interstitial lung disease other per statistical engineer, also started Levaquin IV per statistical engineer, change to oral Levaquin 750 mg for 8 more days for per statistical engineer recommendation (10) Community acquired pneumonia due to Haemophilus influenzae: Code(s): J14 - Pneumonia due to Hemophilus influenzae Status: Acute (11) Lesion of thoracic vertebra: Code(s): M89.9 - Disorder of bone, unspecified Status: Acute Assessment and Plan: CT abdomen pelvis with contrast reveals 1. Abnormal soft tissue in the posterior mediastinum and retroperitoneum suspicious for lymphoma. 2. Sclerotic lesion in T10 vertebral body suspicious for metastatic disease or lymphoma. 3. Mildly enlarged bilateral external iliac lymph nodes, which are indeterminate for lymphoma. Consult his heme oncologist, follow recommendations regarding
--- NOTE | 2023-03-22 11:57 | PM.PNPUL ---
Progress Note: A&P Assessment and Plan (1) Pleural effusion: Code(s): J90 - Pleural effusion, not elsewhere classified Status: Acute Assessment and Plan: Patient with a history of colon cancer age 49, prostate cancer age 58, skin cancer age 75 and low-grade myelodysplastic syndrome on luspaterect injection every 3 weeks. Patient has mild worsening dyspnea on exertion for 1 year, 6 months of dizziness and intermittent shortness of breath and pedal edema. Presents 03/19/23 with a moderate right-sided and small left-sided pleural effusion. His required no supplemental oxygen during this admission. ABG on room air 7. so there is no hypercarbic respiratory failure. Thyroid studies are normal. LFTs are normal suggesting the absence of liver disease. Creatinine has improved to 1.3. Echocardiogram shows normal LV function with grade 1 diastolic dysfunction normal right ventricular size and function normal right atrial size with a PASP of 25. Per my later chewer review there have been no pleural effusions associated with luspaterect. On 03/20 the patient underwent a right thoracentesis with 1000 mL of clear yellow fluid removed. The patient tells me that it was easier for him to breathe after this fluid was removed. G stain was few white blood cells with no organisms seen. PH was greater than 7.50, red blood cells 2000, white blood cells 567 with a differential of neutrophils 3, lymphocytes 82, monocytes 10, macrophages 4, mesothelial cells 1 %. Chemistries and cytology are pending. Post thoracentesis chest x-ray demonstrated the right pleural effusion occupied approximately 20% of the right hemithorax. Currently this represents a lymphocytic non infectious pleural effusion. 03/21: Repeat chest x-ray shows no rapid reaccumulation of the right-sided pleural effusion which now occupies about 20% of the right hemithorax. CT scan of the chest demonstrates moderate right pleural effusion small to moderate left pleural effusion with bibasilar atelectasis, pulmonary edema and diffuse subpleural reticulation suggesting chronic interstitial lung disease. Sclerotic lesion of T10. There is no honeycombing. Will obtain MRI of thoracic spine. Currently the patient has no infectious complaints, is afebrile, no leukocytosis and has been treated with ceftriaxone since 03/20. I would continue these while awaiting cultures. Low likelihood that this is a pneumonia but I agree with treatment for community-acquired pneumonia while awaiting further studies and I will add levaquin 750 Q day X 7 days. QuantiFERON gold is pending. Regarding possibility of interstitial lung disease, I will since serologies looking for etiology of interstitial lung disease. I will order a CRP, ESR, MAI screen that includes 11 different auto antibodies, an ANCA screen, a rheumatoid factor, anti CCP antibody, hypersensitivity pneumonitis panel, a CPK, an aldolase level, and myomarker 3 plus profile. Later in the day I spoke with the radiologist and CT of the chest demonstrated periaortic soft tissue swelling along with sclerotic lesion of T10 they recommended a CT of the abdomen which showed abnormal soft tissue thickening around the common iliac arteries, abdominal aorta, and thoracic aorta. This tissue is contiguous with thickened lower thoracic paraspinal soft tissue. There is soft tissue thickening around the kidneys, proximal ureters, renal vessels, and inferior vena cava. There are mildly enlarged bilateral external iliac lymph nodes suspicious for lymphoma, sclerotic lesion of T10 vertebral body suspicious for metastatic disease or lymphoma. 03/22 today the patient tells me that he is breathing better than he has in the last year. He denies fever, chills, cough, phlegm production. Room air saturations are 95%. White blood cell count is 6.1. Patient slept well and is ready for discharge. Patient is ready to be discharged from a pulmonary perspective on these pulmonar
[2023-03-24 12:33] LABS: NIL 0.49 IU/mL; Quantiferon TB Plus, 1T NEGATIVE (NEGATIVE); TB1-NIL 0.15 IU/mL; TB2-NIL 0.13 IU/mL
[2023-03-25 11:28] LABS: Amylase, Pleural Fluid 29 U/L
[2023-03-25 11:31] LABS: Aldolase 6.1 U/L (<=8.1)
[2023-03-25 11:43] LABS: Glucose Pleural Fluid 187 mg/dL; LDH Pleural Fluid 105 U/L; Total Protein Pleural Fluid 4.5 g/dL
[2023-03-25 19:01] LABS: ANA Cascade Screen Negative (Negative)
[2023-03-25 22:26] LABS: Anti Cyclic Citrullinated Pept <16 Units (<20)
[2023-03-26 22:45] LABS: Albumin Pleural Fluid 3.1 g/dL
[2023-03-26 22:45] LABS: JO-1 AB <11 SI (<11); MI-2 Alpha Ab <11 SI (<11); MI-2 Beta Ab <11 SI (<11); NXP-2 AB <11 SI (<11); TIF1 Gamma Ab <11 SI (<11)
[2023-03-27 21:43] LABS: ANCA Screen Negative (Negative)
== END 2023-03-22 14:03 | disposition home or self-care (01) | DRG 811 ==
LOC: ANHED 18:34 → ANH3MEDSUR 20:20 → ANH3MED 20:41
PROVIDERS: Internal Medicine; Internal Medicine Hematology & Oncology; Internal Medicine Pulmonary Disease; Admitting Provider Internal Medicine; Emergency Provider Physician Assistant; PCP Nurse Practitioner Family; Visit Provider Hospitalist
DX: D46.20 Refractory anemia with excess of blasts, unspecified (principal); J14 Pneumonia due to Hemophilus influenzae; J91.8 Pleural effusion in other conditions classified elsewhere; J84.9 Interstitial pulmonary disease, unspecified; E11.22 Type 2 diabetes mellitus with diabetic chronic kidney disease; N18.30 Chronic kidney disease, stage 3 unspecified; E55.9 Vitamin D deficiency, unspecified; M89.9 Disorder of bone, unspecified; E66.3 Overweight; Z68.28 Body mass index [BMI] 28.0-28.9, adult; Z85.46 Personal history of malignant neoplasm of prostate; Z85.038 Personal history of other malignant neoplasm of large intestine; Z87.891 Personal history of nicotine dependence
CPT/HCPCS: 32555; 36415; 36600; 71045; 71046; 71250; 74177; 80048; 80053; 82042; 82085; 82150; 82378; 82550; 82805; 82945; 82948; 83036; 83615; 83880; 83986; 84157; 84182; 84439; 84443; 84484; 85025; 85610; 85652; 85730; 86036; 86038; 86140; 86200; 86331; 86430; 86480; 86606; 86609; 87015; 87070; 87075; 87102; 87116; 87205; 87206; 88108; 88184; 88305; 88342; 89051; 93005; 93306; 96372; 96374; 99285; A9270; G0378; J0696; J1644; J1815; J1956; Q9967

== ENCOUNTER 2023-04-04 09:26 | Observation (INO) | payer MEDICARE, SELFPAY ==
[2023-04-04] VITALS (23 sets, daily range): BP systolic 117–148; BP diastolic 66–77; PULSE 62–76; RESP 14–32; TEMP 35.7–36.4; O2SAT 96–100; BMI 30.7
--- NOTE | ~2023-04-04 | US_ITS ---
EXAMINATION: US venous doppler [facility] DATE: 04/04/2023 10:15 INDICATION: Lower limb swelling. TECHNIQUE: Grayscale ultrasound images without and with compression and Doppler ultrasound images of the bilateral lower extremity veins were obtained. COMPARISON: None. FINDINGS: The visualized portions of right common femoral vein, profunda (deep) femoral vein, femoral vein, pop liteal vein, peroneal veins, posterior tibial veins, and greater saphenous vein outflow are patent. The visualized portions of left common femoral vein, profunda femoral vein, femoral vein, popliteal v ein, peroneal veins, posterior tibial veins, and greater saphenous vein outflow are patent. IMPRESSION: 1. No deep venous thrombosis. Reviewed, dictated and finalized at location B.
--- NOTE | ~2023-04-04 | XR_ITS ---
EXAMINATION: XR chest 2V DATE: 04/04/2023 09:52 INDICATION: Shortness of breath. TECHNIQUE: Frontal and lateral views of the chest were obtained. COMPARISON: Chest single view 03/21/2023, chest CT 03/21/2023 FINDINGS: There are moderate-sized right and small left pleural effusions. There is a diffuse interst itial pattern in the lungs, consistent with pulmonary edema. No pneumothorax. The heart size is obscu red. IMPRESSION: 1. Mild pulmonary edema. 2. Moderate-sized right and small left pleural effusions with interval worsening on the right. Reviewed, dictated and finalized at location B. IMPRESSION: 1. Mild pulmonary edema. 2. Moderate-sized right and small left pleural effusions with interval worsenin g on the right.
--- NOTE | ~2023-04-04 | XR_ITS ---
EXAMINATION: [id number] DATE: 04/04/2023 16:43 INDICATION: Status post right thoracentesis TECHNIQUE: PA and lateral views of the chest were obtained. COMPARISON: Chest radiograph dated 04/04/2023 at 9:49 AM FINDINGS: Opacities at the bilateral lung bases with blunting at the costophrenic angles consistent with small bilateral pleural effusions, and associated basilar atelectasis and/or pneumonia. The right-sided ple ural effusion has significantly decreased in size postthoracentesis. Mild increased interstitial chaparro janelle in the bilateral mid and lower lung zones with peripheral Sangeetha B-lines consistent with mild pul monary edema. No pneumothorax. Heart size is normal. IMPRESSION: 1. Small bilateral pleural effusions, decreased on the right post right thoracentesis. 2. Mild pulmonary edema. 3. Bibasilar opacities consistent with associated atelectasis although pneumonia not excludable. Reviewed, dictated and finalized at location A. IMPRESSION: 1. Small bilateral pleural effusions, decreased on the right post right thorace ntesis. 2. Mild pulmonary edema. 3. Bibasilar opacities consistent with associated atelectasis although pneumoni a not excludable.
--- NOTE | ~2023-04-04 | US_ITS ---
EXAMINATION: US thoracentesis DATE: 04/04/2023 16:51 INDICATION: Right pleural effusion TECHNIQUE: The procedure and its risks and benefits were discussed with the patient. Potential risks discussed included bleeding, infection, and pneumothorax. The patient understood the risks and agreed to proceed. The skin was prepped and draped in sterile fashion. 1% lidocaine was used for local anes thesia. Under ultrasound guidance, a 5 Fr catheter with trochar was advanced into the right pleural e ffusion. Fluid was aspirated. The catheter was removed, and a dressing was applied. There were no imm ediate complications. FINDINGS: Ultrasound images demonstrate a large right pleural effusion and the catheter within the fluid. IMPRESSION: 1. Successful ultrasound-guided thoracentesis yielding 1000 mL of straw-colored fluid fluid. Reviewed, dictated and finalized at location A. IMPRESSION: 1. Successful ultrasound-guided thoracentesis yielding 1000 mL of straw-colore d fluid fluid.
--- NOTE | 2023-04-04 09:30 | ECG_ITS ---
Measurements Intervals Finger Rate: 68 P: 18 IA: 177 QRS: -20 QRSD: 95 T: 27 QT: 379 QTc: 405 Interpretive Statements SINUS RHYTHM LOW VOLTAGE IN THE LIMB LEADS BORDERLINE ECG COMPARED TO ECG 03/19/2023 18:39:47 NO SIGNIFICANT CHANGES Electronically Signed On 04-04-2023 13:09:28 CDT by Tim Hurtado M.D.
--- NOTE | 2023-04-04 09:43 | ED.GENADULT ---
HPI - General Adult General Chief complaint: Shortness of Breath/Dyspnea Stated complaint: SOB Time Seen by Provider: 04/04/23 09:31 History of Present Illness HPI narrative: 78-year-old male presented ED for evaluation of shortness of breath. Patient states he was recently discharged from the hospital after having a thoracentesis. Patient was found to be in myelodysplastic syndrome and it was thought to be due to an infection and patient was treated with IV ceftriaxone. Patient is scheduled to have follow-up with Dr. Hassan. Patient states since being discharged he has had lower extremity swelling and increased exertional fatigue and shortness of breath. Related Data Home Medications Medication Instructions Recorded Confirmed folic acid 1 mg tablet 1 mg PO DAILY 12/18/20 04/04/23 sildenafil 25 mg tablet (Viagra) 25 mg PO DAILY PRN ed 12/18/20 04/04/23 Allergies Allergy/AdvReac Type Severity Reaction Status Date / Time No Known Allergies Allergy Verified 03/19/23 21:51 Review of Systems Review of Systems: All systems reviewed & are unremarkable except as noted in HPI and below PMFSH Past Medical History Medical History Bilateral edema of lower extremity BMI 30.0-30.9,adult Colon cancer Cough Decreased exercise tolerance Diabetes type 2, controlled Diabetic eye exam Dr. Clemente 06/29/2020 Fatigue MDS (myelodysplastic syndrome), low grade Prostate cancer radiation seeds Screening for diabetic retinopathy (06/22/21) no diabetic retinopathy 06/22/2021 Shortness of breath Skin cancer Sun-damaged skin Surgical History Surgical History (Updated 04/04/23 @ 15:56 by Janell Shaver NP) H/O colectomy History of removal of pigmented skin lesion History of thoracentesis Family History Family History (Updated 04/04/23 @ 13:15 by Janell Shaver NP) Father Diabetes mellitus Heart disease Social History Social History (Updated 04/04/23 @ 16:05 by Janell Shaver NP) Social History: He lives with and has 3 children. 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 Smoking packs per day: 1 Smoking cigarettes per day: 20.0 Years smoked: 15 Smoking pack-years: 15.00 Smoking status: Former smoker Second hand tobacco smoke exposure: No Alcohol intake: never Substance use: never Substance use type: does not use Lack of Transportation: No Lack of Food: Never True Current Housing: I Have Housing Concerned About Future Housing: No Difficulty Paying Gas/Electric Bills: No Difficulty Paying for Meds: No Currently Unemployed: No Education: Bachelor's Degree Difficulty w/ Childcare or Family Care: No Spiritual care concerns: No Exam Narrative: APPEARANCE: Well appearing, no pain, no distress, well-nourished. HEAD: normocephalic, atraumatic. EYES: PERRLA/EOMI, conjunctivae clear. NOSE: Normal no drainage EARS:TMS clear with good light reflex. THROAT: Pharynx clear, no exudate. NECK: Supple. No adenopathy, no masses. RESPIRATORY: Airway patent, respirations nonlabored. Clear to auscultation bilaterally, no rales, rhonchi, wheezing. CARDIOVASCULAR: Regular rate and rhythm without murmurs rubs or gallops. ABDOMINAL: Soft, nontender, nondistended, normal bowel sounds MUSCULOSKELETAL: Moves all extremities. Bilateral lower extremity pitting edema NEURO: Alert. Cranial nerves II through XII intact. Good gait. Good coordination SKIN: Warm, dry. Normal Color Course Course Emergency Course: 78-year-old male presented ED for evaluation of worsening shortness of breath. Patient is stable on room air. X-ray was ordered to evaluate for pleural effusion. Bilateral lower extremity DVT study was ordered. Patient and family were updated on the plan for work-up. All questions and concerns were addressed. Patient is afebrile, no O2 requirement not tachycardic but patient is symptomatic with exer
[2023-04-04 10:16] LABS: Basophils Percent Auto 0.3 % (0.2-1.2); Eosinophils Absolute Auto 0.1 K/mm3 (0-0.3); Eosinophils Percent Auto 1.5 % (0-4.4); Hematocrit 32.8 % (42.0-52.0); Hemoglobin 10.4 g/dL (14.0-18.0); Immature Granulocyte Absolute 0.26 K/mm3 (0.00-0.031); Immature Granulocyte Percent A 3.7 % (0-0.5); Lymphocytes Absolute Auto 2.64 K/mm3 (0.9-3.2); Lymphocytes Percent Auto 37.1 % (18.3-44.2); Mean Corpuscular HGB Conc 31.7 g/dl (32-36); Mean Corpuscular Hemoglobin 33.1 pg (26-34); Mean Corpuscular Volume 104.5 fl (80-100); Mean Platelet Volume 10.2 fl (7.4-10.4); Monocytes Absolute Auto 0.7 K/mm3 (0.1-0.6); Monocytes Percent Auto 9.7 % (2.6-8.5); Neutrophils Absolute Auto 3.4 K/mm3 (1.3-6.7); Neutrophils Percent Auto 47.7 % (45.5-73.1); Nucleated Red Blood Cells Absolute Auto 0.4 K/mm3 (0.0-0.012); Nucleated Red Blood Cells Perc 4.9 % (0.0-0.2); Platelet Count Result 351 k/mm3 (150-375); Red Blood Count 3.14 M/mm3 (4.6-6.20); Red Cell Distribution Width 29.7 % (11.5-14.5); White Blood Count 7.1 K/mm3 (4.5-10.0)
[2023-04-04 10:32] LABS: Alanine Aminotransferase 16 U/L (6-50); Albumin Level 3.7 g/dL (3.5-5.1); Alkaline Phosphatase 69 U/L (38-126); Anion Gap 7 mmol/L (8-16); Anisocytosis 3+ (NORMAL); Aspartate Amino Transferase 21 U/L (17-59); Bilirubin,Total 0.8 mg/dL (0.2-1.3); Blood Urea Nitrogen 18 mg/dL (9-20); Calcium 8.6 mg/dL (8.4-10.2); Carbon Dioxide 26 mmol/L (22-30); Chloride 107 mmol/L (98-107); Estimated CRCL calculation 47 ml/min; Estimated Glomerular Filt Rate 53; Glucose 130 mg/dL (65-110); Macrocytosis 1+ (NORMAL); Platelet Estimate Adequate (Adequate); Potassium 4.6 mmol/L (3.4-5.0); Schistocytes None Seen (NORMAL); Sodium 140 mmol/L (137-145); Target Cells 1+ (NORMAL)
[2023-04-04 10:39] LABS: NT Pro B Type Natriuretic Pept 159 pg/mL (19.9-100)
[2023-04-04 10:52] LABS: Influenza A QL RT-PCR Negative (Negative); Influenza B QL RT-PCR Negative (Negative); RSV RNA, RT-PCR Negative (Negative); SARS-CoV-2 RNA PCR Negative (Negative)
--- NOTE | 2023-04-04 13:11 | PM.IMHP ---
H&P: HPI History of Present Illness Date/Time: 04/04/23 13:11 Chief Complaint: Shortness of breath Narrative: This is a 78-year-old male patient who is diabetic and has hypertension. His is at the bedside answering questions with him as he is very hard of hearing and having difficulty hearing me. The patient was just discharged on 03/22/2023 at that time the patient was found to have a right pleural effusion with myelodysplastic syndrome the patient was given IV antibiotics at that time. The patient had a moderate right pleural effusion. He also had an echo on 03/20 which shows left ventricular systolic function is normal estimated EF of 60-65%. The patient did have a thoracentesis and stated that there was a 1000 cc out of that pleural effusion. The patient is stated that the testing for the pleural fluid was inconclusive. The patient was discharged on Levaquin p.o. for 8 more days. Pulmonology saw him at the time. The patient return to the emergency room to D to be evaluated for shortness of breath. The patient has not yet been able to follow-up with his oncologist Dr. Hassan. The patient has increased swelling and shortness of breath and fatigue. Venous Dopplers were negative. Chest x-ray was read as mild pulmonary edema. Moderate size right and small left pleural effusion with interval worsening on the right. I did place an order for another thoracentesis. The patient was given IV Lasix. His H&H is 10.4 and 32.8 which is higher than his baseline. The patient is being admitted to observation status on the date of service of 04/04/2023. Review of Systems Review of Systems: All systems reviewed & are unremarkable except as noted in HPI and below Constitutional: Constitutional: Reports as per HPI and Reports no additional constitutional complaints Eyes: Eyes: Reports as per HPI and Reports no additional eye complaints ENT: Reports system reviewed and no additional complaints, except as documented and Reports Normal hearing present Cardiovascular: Cardiovascular: Reports no additional cardiovascular complaints Respiratory: Respiratory: Reports no additional respiratory complaints and Reports no additional respiratory complaints Gastrointestinal: Gastrointestinal: Reports as per HPI and Reports no additional gastrointestinal complaints Musculoskeletal: Musculoskeletal: Reports no additional musculoskeletal complaints Integumentary/Breasts: Skin/Breast: Reports system reviewed and no additional complaints, except as docu and Reports as per HPI Neurologic: Reports system reviewed and no additional complaints, except as documented, Reports as per HPI and Reports Normal hearing present Psychiatric: Psychiatric: Reports no additional psychiatric complaints and Reports as per HPI Endocrine: Endocrine: Reports no additional endocrine complaints Hematologic/Lymphatic: Hematologic/Lymphatic: Reports no additional hematologic/lymphatic complaints Allergic/Immunologic: Allergic/Immunologic: Reports no additional allergic/immunologic complaints [facility] Past Medical History Medical History Bilateral edema of lower extremity BMI 30.0-30.9,adult Colon cancer Cough Decreased exercise tolerance Diabetes type 2, controlled Diabetic eye exam Dr. Clemente 06/29/2020 Fatigue MDS (myelodysplastic syndrome), low grade Prostate cancer radiation seeds Screening for diabetic retinopathy (06/22/21) no diabetic retinopathy 06/22/2021 Shortness of breath Skin cancer Sun-damaged skin Surgical History Surgical History (Updated 04/04/23 @ 15:56 by Janell Shaver NP) H/O colectomy History of removal of pigmented skin lesion History of thoracentesis Family History Family History (Updated 04/04/23 @ 13:15 by Janell Shaver NP) Father Diabetes mellitus Heart disease Social History Social History (Updated 04/04/23 @ 16:05 by Janell Shaver NP) Social
[2023-04-04] MEDS: FUROSEMIDE INJ 40 MG/4 ML VIAL 20 MG IV PUSH (13:42)
[2023-04-04 13:52] LABS: INR 1.2; Prothrombin Time 16.2 Seconds (11.1-14.7)
[2023-04-04 13:53] LABS: Partial Thromboplastin Time 35.7 SECONDS (22.3-36.8)
--- NOTE | 2023-04-04 15:08 | ADMGEN ---
This patient, Matthew Baez, was admitted to [facility] Bed 3rd Floor-1 at 1356. Patient/family oriented to hospital policies and general routines including ID bracelet, bed and alarms, visiting hours, pain management, procedures, bathroom and other care routines, personal items, smoking policy, room service/diet, and visiting hours. Information on how to activate the Rapid Response Team has been discussed. Patient/Family are encouraged to report perceived risks to care and to ask questions if they do not understand what they are told or what they should do.
[2023-04-04 16:46] LABS: pH Pleural Fluid 7.478 (7.210-7.500)
[2023-04-04 17:03] LABS: Glucose Point of Care 104 mg/dl (65-105)
[2023-04-04 17:42] LABS: Appearance Pleural Fluid Hazy (Clear); Color Pleural Fluid Yellow (Colorless); Pleural fluid source Pleural fluid
[2023-04-04 17:43] LABS: Lymphocytes Pleural Fluid 74 %; Macrophages Pleural Fluid 19 %; Monocytes Pleural Fluid 7 %
[2023-04-04] MEDS: INSULIN GLARGINE (*BKC) 100 UNITS/ML 45 UNITS SUB-Q (20:23)
[2023-04-04 20:33] LABS: Glucose Point of Care 188 mg/dl (65-105)
[2023-04-04 22:53] LABS: Albumin Level 3.6 g/dL (3.5-5.1); Amylase 121 U/L (30-110); Bilirubin,Total 0.7 mg/dL (0.2-1.3); Cholesterol 119 mg/dL (0-200); Glucose 131 mg/dL (65-110); Lactate Dehydrogenase 146 U/L (120-246); Triglycerides 142 mg/dL (<150)
[2023-04-05] MEDS: SODIUM CHLOR 3% 15 ML NEB (RESPIRATORY THERAPY) 6 ML INHALATION (05:25)
[2023-04-05 06:00] VITALS: BP 124/64; PULSE 61; RESP 12; TEMP 35.8; O2SAT 93
[2023-04-05 07:00] LABS: Basophils Percent Auto 0.3 % (0.2-1.2); Eosinophils Absolute Auto 0.1 K/mm3 (0-0.3); Eosinophils Percent Auto 1.7 % (0-4.4); Hematocrit 29.2 % (42.0-52.0); Hemoglobin 9.3 g/dL (14.0-18.0); Immature Granulocyte Absolute 0.15 K/mm3 (0.00-0.031); Immature Granulocyte Percent A 2.6 % (0-0.5); Lymphocytes Absolute Auto 2.21 K/mm3 (0.9-3.2); Lymphocytes Percent Auto 37.7 % (18.3-44.2); Mean Corpuscular HGB Conc 31.8 g/dl (32-36); Mean Corpuscular Hemoglobin 32.7 pg (26-34); Mean Corpuscular Volume 102.8 fl (80-100); Mean Platelet Volume 9.8 fl (7.4-10.4); Monocytes Absolute Auto 0.6 K/mm3 (0.1-0.6); Monocytes Percent Auto 10.9 % (2.6-8.5); Neutrophils Absolute Auto 2.7 K/mm3 (1.3-6.7); Neutrophils Percent Auto 46.8 % (45.5-73.1); Nucleated Red Blood Cells Absolute Auto 0.2 K/mm3 (0.0-0.012); Nucleated Red Blood Cells Perc 3.4 % (0.0-0.2); Platelet Count Result 285 k/mm3 (150-375); Red Blood Count 2.84 M/mm3 (4.6-6.20); Red Cell Distribution Width 29.3 % (11.5-14.5); White Blood Count 5.9 K/mm3 (4.5-10.0)
[2023-04-05 07:13] LABS: Alanine Aminotransferase 15 U/L (6-50); Albumin Level 2.9 g/dL (3.5-5.1); Alkaline Phosphatase 53 U/L (38-126); Anion Gap 4 mmol/L (8-16); Aspartate Amino Transferase 19 U/L (17-59); Bilirubin,Total 0.9 mg/dL (0.2-1.3); Blood Urea Nitrogen 17 mg/dL (9-20); Calcium 7.9 mg/dL (8.4-10.2); Carbon Dioxide 22 mmol/L (22-30); Chloride 108 mmol/L (98-107); Estimated CRCL calculation 47 ml/min; Estimated Glomerular Filt Rate 53; Glucose 86 mg/dL (65-110); Lactic Acid Reflex 1.3 mmol/L (0.7-2.0); Magnesium 1.9 mg/dL (1.6-2.3); Potassium 3.8 mmol/L (3.4-5.0); Sodium 134 mmol/L (137-145)
[2023-04-05 07:41] LABS: Glucose Point of Care 85 mg/dl (65-105)
[2023-04-05 08:21] VITALS: PULSE 71
[2023-04-05] MEDS: NEBIVOLOL HCL 5 MG TABLET PO (08:21)
[2023-04-05] MEDS: FOLIC ACID 1 MG TABLET PO (08:22)
[2023-04-05 08:28] LABS: Platelet Estimate Adequate (Adequate)
[2023-04-05 08:29] LABS: Anisocytosis 2+ (NORMAL); Macrocytosis 1+ (NORMAL); Schistocytes None Seen (NORMAL); Target Cells 1+ (NORMAL)
[2023-04-05 08:30] LABS: Large Platelets Present
[2023-04-05 08:31] VITALS: O2SAT 95
--- NOTE | 2023-04-05 10:56 | PM.DS ---
DS: Admitting Diagnosis Discharge Date 04/05/2023 Admitting Diagnosis Pleural effusion DS: Discharge Diagnosis Discharge Diagnosis (1) Pleural effusion: Code(s): J90 - Pleural effusion, not elsewhere classified Status: Acute (2) Lymphoma: Code(s): C85.90 - Non-Hodgkin lymphoma, unspecified, unspecified site Status: Acute DS: Summary Hospital Course Hospital Course: This is a 78-year-old male patient who is diabetic and has hypertension.? The patient was just discharged on 03/22/2023 at that time the patient was found to have a right pleural effusion with myelodysplastic syndrome the patient was given IV antibiotics at that time.? The patient had a moderate right pleural effusion.? He also had an echo on 03/20 which shows left ventricular systolic function is normal estimated EF of 60-65%.? The patient did have a thoracentesis and 1000 cc out of that pleural effusion.? Fluid analysis showed exudative lymphocytic prominence fluid. The patient return to the emergency room to D to be evaluated for shortness of breath.? The patient has not yet been able to follow-up with his oncologist Dr. Hassan.? The patient has increased swelling and shortness of breath and fatigue.? Venous Dopplers were negative.? Chest x-ray was read as mild pulmonary edema.? Moderate size right and small left pleural effusion with interval worsening on the right.? The patient was given IV Lasix.? Thoracentesis was ordered and 1 L of fluid was removed. Patient is clinically stable at this time and is being discharged home. He will follow-up with his oncologist as outpatient Time Spent with Patient Time attestation: Total time spent providing and/or coordinating discharge services: DS: Data Data Completed and Pending Pending studies at discharge: Pending at discharge 04/04/23 13:10 Cytology [PTH] Routine Labs on day of discharge: Labs from last 24 hours 04/05/23 04/05/23 04/04/23 07:39 06:52 20:23 WBC 5.9 RBC 2.84 L Hgb 9.3 L Hct 29.2 L MCV 102.8 H MCH 32.7 MCHC 31.8 L RDW 29.3 H Plt Count 285 MPV 9.8 Immature Gran % (Auto) 2.6 H Neut % (Auto) 46.8 Lymph % (Auto) 37.7 [place] % (Auto) 10.9 H Eos % (Auto) 1.7 Baso % (Auto) 0.3 Lymph # (Auto) 2.21 [place] # (Auto) 0.6 Eos # (Auto) 0.1 Baso # (Auto) 0.0 Abs Immat Gran (auto) 0.15 H Absolute Neuts (auto) 2.7 Absolute Nucleated RBC 0.2 H Nucleated RBC % 3.4 H Platelet Estimate Adequate Large Platelets Present Anisocytosis 2+ Macrocytosis 1+ Target Cells 1+ Schistocytes None seen PT INR APTT Sodium 134 L Potassium 3.8 Chloride 108 H Carbon Dioxide 22 Anion Gap 4 L BUN 17 Creatinine 1.30 Estim Creat Clear Calc 47 Estimated GFR 53 L Glucose 86 POC Capillary Glucose 85 188 H Lactic Acid 1.3 Calcium 7.9 L Magnesium 1.9 Total Bilirubin 0.9 AST 19 ALT 15 Alkaline Phosphatase 53 Lactate Dehydrogenase Total Protein 6.0 L Albumin 2.9 L Triglycerides Cholesterol Amylase Adenosine Deaminase Pleural Fluid Source Pleural Color Pleural Appearance Pleural pH Pleural RBC Pleural Nuc Cells Pleural Lymphocytes Pleural Monocytes Pleural Macrophages Pleural Total Protein Pleural Albumin Pleural LDH Pleural Glucose Pleural Amylase Pleural Cholesterol Pleural Triglycerides 04/04/23 04/04/23 04/04/23 16:56 16:28 13:35 WBC RBC Hgb Hct MCV MCH MCHC RDW Plt Count MPV Immature Gran % (Auto) Neut % (Auto) Lymph % (Auto) [place] % (Auto) Eos % (Auto) Baso % (Auto) Lymph # (Auto) [place] # (Auto) Eos # (Auto) Baso # (Auto) Abs Immat Gran (auto) Absolute Neuts (auto) Absolute Nucleated RBC Nucleated RBC % Platelet Estimate Large Platelets Anisocytosis Macr
[2023-04-08 06:56] LABS: Glucose Pleural Fluid 119 mg/dL; LDH Pleural Fluid 63 U/L; Total Protein Pleural Fluid 4.1 g/dL
[2023-04-08 11:10] LABS: Amylase, Pleural Fluid 27 U/L
[2023-04-09 22:04] LABS: Albumin Pleural Fluid 2.5 g/dL
== END 2023-04-05 12:12 | disposition home or self-care (01) ==
LOC: ANHED 11:35 → ANH3MEDSUR 16:14
PROVIDERS: Nurse Practitioner; Admitting Provider Family Medicine; Emergency Provider Emergency Medicine; PCP Nurse Practitioner Family; Visit Provider Hospitalist
DX: J90 Pleural effusion, not elsewhere classified (principal); C85.90 Non-Hodgkin lymphoma, unspecified, unspecified site; D46.20 Refractory anemia with excess of blasts, unspecified; R06.00 Dyspnea, unspecified; J81.1 Chronic pulmonary edema; E11.9 Type 2 diabetes mellitus without complications; Z20.822 Contact with and (suspected) exposure to COVID-19; H91.90 Unspecified hearing loss, unspecified ear; I11.9 Hypertensive heart disease without heart failure; D53.0 Protein deficiency anemia; E87.8 Other disorders of electrolyte and fluid balance, not elsewhere classified; C61 Malignant neoplasm of prostate; Z92.3 Personal history of irradiation; M89.9 Disorder of bone, unspecified; R77.0 Abnormality of albumin; E83.51 Hypocalcemia; E78.2 Mixed hyperlipidemia; R53.83 Other fatigue; E87.1 Hypo-osmolality and hyponatremia; I34.81 Nonrheumatic mitral (valve) annulus calcification; I35.8 Other nonrheumatic aortic valve disorders; Z85.828 Personal history of other malignant neoplasm of skin; Z79.85 Long-term (current) use of injectable non-insulin antidiabetic drugs; Z79.84 Long term (current) use of oral hypoglycemic drugs; Z87.891 Personal history of nicotine dependence; Z79.899 Other long term (current) drug therapy; Z83.3 Family history of diabetes mellitus
CPT/HCPCS: 32555; 36415; 71046; 80053; 82040; 82042; 82150; 82247; 82465; 82945; 82947; 82948; 83605; 83615; 83735; 83880; 83986; 84155; 84157; 84311; 84478; 85025; 85610; 85730; 87015; 87070; 87075; 87102; 87116; 87205; 87206; 87637; 88108; 88184; 88305; 88342; 89051; 93005; 93970; 96374; 99285; A9270; G0378; J1815; J1940

== ENCOUNTER 2024-09-23 00:42 | Day surgery (SDC) | payer MEDICARE, SELFPAY ==
[2024-09-09 15:29] VITALS: BMI 23.5
--- NOTE | 2024-09-22 15:31 | WPDANESEPPF ---
Anes - Initial Pre Proc Eval Procedure: Operation Date: 09/23/24 11:30 Proposed Procedures p Colonoscopy - Abhinav Britt MD Date/Time: 09/22/24 15:31 Surgeon: Abhinav Britt MD Pre Op Diagnosis: hx of cancer Patient Data Age: 79 Gender: M Height: 1.7 m Weight: 68.2 kg Allergies Allergy/AdvReac Type Severity Reaction Status Date / Time No Known Allergies Allergy Verified 09/23/24 10:00 Home Medications ?Medication ?Instructions ?Recorded ?Confirmed ?Type folic acid 1 mg tablet 1 mg PO DAILY 12/18/20 09/23/24 History sildenafil 25 mg tablet (Viagra) 25 mg PO DAILY PRN ed 12/18/20 09/09/24 History albuterol sulfate 90 mcg/actuation 1 puff inhalation Q4H PRN 09/09/23 09/09/24 History aerosol inhaler shortness of breath or wheezing fluticasone propionate 50 1 spray intranasal Q12H 09/09/23 09/23/24 History mcg/actuation nasal spray,suspension insulin detemir U-100 100 unit/mL 25 unit (0.25 mL) subcut DAILY #45 09/09/23 09/09/24 Rx (3 mL) subcutaneous pen mL Tradjenta 5 mg tablet (linagliptin) 5 mg PO QAM #90 tabs 10/15/23 09/23/24 Rx nebivolol 5 mg tablet (Bystolic) 5 mg PO DAILY #90 tabs 10/22/23 09/23/24 Rx furosemide 20 mg tablet 40 mg (2 x 20 mg) PO DAILY #60 tabs 12/15/23 09/23/24 Rx spironolactone 25 mg tablet 25 mg PO BID 12/15/23 09/23/24 History famotidine 20 mg tablet 20 mg PO BID 01/08/24 09/09/24 History budesonide 160 mcg-glycopyr 9 2 inh inhalation BID 07/12/24 09/23/24 History mcg-formot 4.8 mcg/actuation HFA inhaler (Breztri Aerosphere) insulin detemir U-100 100 unit/mL 20 unit (0.2 mL) subcut QHS #6 mL 07/15/24 09/23/24 Rx (3 mL) subcutaneous pen pen needle, diabetic 31 gauge x #100 ea 07/15/24 Rx /16 (BD Ultra-Fine Mini Pen Needle) insulin glargine 100 unit/mL (3 20 unit (0.2 mL) subcut DAILY #6 mL 07/20/24 09/09/24 Rx mL) subcutaneous pen (Lantus Solostar U-100 Insulin) Patient hx anesthesia problems: none Family hx anesthesia problems: none Results Review: All pre-operative results and documents have been reviewed as part of the pre-operative evaluation. [facility] Past Medical History Medical History (Updated 09/22/24 @ 15:31 by Axel Madera DO) Hypertension COPD (chronic obstructive pulmonary disease) Dysphagia Diastolic congestive heart failure Elevated brain natriuretic peptide (BNP) level Right flank pain Skin cancer Colon cancer Shortness of breath Bilateral edema of lower extremity Decreased exercise tolerance Fatigue Cough MDS (myelodysplastic syndrome), low grade Diabetes type 2, controlled Screening for diabetic retinopathy (06/22/21) no diabetic retinopathy 06/22/2021. No diabetic retinopathy 09/18/2023. BMI 30.0-30.9,adult Sun-damaged skin Prostate cancer radiation seeds Diabetic eye exam Dr. Clemente 06/29/2020 Surgical History Surgical History History of thoracentesis History of removal of pigmented skin lesion H/O colectomy Family History Family History Father Diabetes mellitus Heart disease Social History Social History Social History: He lives with and has 3 children. 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 Smoking packs per day: 1 Smoking cigarettes per day: 20.0 Years smoked: 20 Smoking pack-years: 20.00 Smoking status: Former smoker Tobacco type: cigarettes Second hand tobacco smoke exposure: No Alcohol intake: never Substance use: never Substance use type: does not use Lack of Transportation: No Lack of Food: Never True Current Housing: I Have Housing Concerned About Future Housing: No Difficulty Paying Gas/Electric Bills: No Difficulty Paying for Meds: No Currently Unemployed: No Education: Bachelor's Degree Difficulty w/ Childcare or Family Care: No Living arrangements: with family Spiritual care concerns: No Anes - Eval Final PreProcedure Day of Procedure 09/22/24 15:31 Patient weight: normal Heart: regular rate and rhythm Lungs: clear to auscultation and normal air movement Airway: Mallampati scale class III Neurological: alert and oriented Last oral intake: >/= 8 hours ASA classification: III Emergent: no Anesthetic plan: proceed Anesthesia type and monitoring: general GIVS and standard monitoring Results Review: All pre-operative results and documents have been reviewed as part of the pre-operative evaluation. Informed Consent: The patient's anesthetic plan and its attendant risks and benefits were discussed with the patient/family/POA. Questions were solicited and answers provided to the satisfaction of the patient/family/POA.
[2024-09-23 10:02] VITALS: BP 93/49; PULSE 85; RESP 18; TEMP 36.1; O2SAT 100; BMI 22.8
--- NOTE | 2024-09-23 10:05 | SUR.PREOP ---
Patient reports only completing 52oz of miralax prep. Patient states he's unsure if completely cleared out. Dr. Britt aware. Patient also reports having grape juice at 0900, due to blood sugar being [address] Madera notified and aware.
[2024-09-23] MEDS: LACTATED RINGERS 1,000 ML 150 ML IV CONT (10:30)
[2024-09-23 10:32] LABS: Glucose Point of Care 106 mg/dl (65-105)
--- NOTE | 2024-09-23 10:38 | P.HP_ITS ---
H&P: [facility] History of Present Illness Date/Time: 09/23/24 10:38 Chief Complaint: history of colorectal cancer Narrative: this patient had a history of colorectal cancer, status post left hemicolectomy in 2003. Since then, the patient has been undergoing serial colonoscopies approximately 5 years. Approximately 4 years ago he was found to have a small tubular adenoma in the cecum, removed. He is here for surveillance colonoscopy. Review of Systems Review of Systems: All systems reviewed & are unremarkable except as noted in HPI and below PMFSH Past Medical History Medical History (Updated 09/22/24 @ 15:31 by Axel Madera DO) Hypertension COPD (chronic obstructive pulmonary disease) Dysphagia Diastolic congestive heart failure Elevated brain natriuretic peptide (BNP) level Right flank pain Skin cancer Colon cancer Shortness of breath Bilateral edema of lower extremity Decreased exercise tolerance Fatigue Cough MDS (myelodysplastic syndrome), low grade Diabetes type 2, controlled Screening for diabetic retinopathy (06/22/21) no diabetic retinopathy 06/22/2021. No diabetic retinopathy 09/18/2023. BMI 30.0-30.9,adult Sun-damaged skin Prostate cancer radiation seeds Diabetic eye exam Dr. Clemente 06/29/2020 Surgical History Surgical History History of thoracentesis History of removal of pigmented skin lesion H/O colectomy Family History Family History Father Diabetes mellitus Heart disease Social History Social History Social History: He lives with and has 3 children. 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 Smoking packs per day: 1 Smoking cigarettes per day: 20.0 Years smoked: 20 Smoking pack-years: 20.00 Smoking status: Former smoker Tobacco type: cigarettes Second hand tobacco smoke exposure: No Alcohol intake: never Substance use: never Substance use type: does not use Lack of Transportation: No Lack of Food: Never True Current Housing: I Have Housing Concerned About Future Housing: No Difficulty Paying Gas/Electric Bills: No Difficulty Paying for Meds: No Currently Unemployed: No Education: Bachelor's Degree Difficulty w/ Childcare or Family Care: No Living arrangements: with family Spiritual care concerns: No Meds Home Medications and Allergies Home Medications ?Medication ?Instructions ?Recorded ?Confirmed ?Type folic acid 1 mg tablet 1 mg PO DAILY 12/18/20 09/23/24 History sildenafil 25 mg tablet (Viagra) 25 mg PO DAILY PRN ed 12/18/20 09/09/24 History albuterol sulfate 90 mcg/actuation 1 puff inhalation Q4H PRN 09/09/23 09/09/24 History aerosol inhaler shortness of breath or wheezing fluticasone propionate 50 1 spray intranasal Q12H 09/09/23 09/23/24 History mcg/actuation nasal spray,suspension insulin detemir U-100 100 unit/mL 25 unit (0.25 mL) subcut DAILY #45 09/09/23 09/09/24 Rx (3 mL) subcutaneous pen mL Tradjenta 5 mg tablet (linagliptin) 5 mg PO QAM #90 tabs 10/15/23 09/23/24 Rx nebivolol 5 mg tablet (Bystolic) 5 mg PO DAILY #90 tabs 10/22/23 09/23/24 Rx furosemide 20 mg tablet 40 mg (2 x 20 mg) PO DAILY #60 tabs 12/15/23 09/23/24 Rx spironolactone 25 mg tablet 25 mg PO BID 12/15/23 09/23/24 History famotidine 20 mg tablet 20 mg PO BID 01/08/24 09/09/24 History budesonide 160 mcg-glycopyr 9 2 inh inhalation BID 07/12/24 09/23/24 History mcg-formot 4.8 mcg/actuation HFA inhaler (Breztri Aerosphere) insulin detemir U-100 100 unit/mL 20 unit (0.2 mL) subcut QHS #6 mL 07/15/24 09/23/24 Rx (3 mL) subcutaneous pen pen needle, diabetic 31 gauge x #100 ea 07/15/24 Rx 3/16 (BD Ultra-Fine Mini Pen Needle) insulin glargine 100 unit/mL (3 20 unit (0.2 mL) subcut DAILY #6 mL 07/20/24 09/09/24 Rx mL) subcutaneous pen (Lantus Solostar U-100 Insulin) Allergies Allergy/AdvReac Type Severity Reaction Status Date / Time No Known Allergies Allergy Verified 09/23/24 10:00 Vital Signs Vital Signs - 24 hr 09/23/24 10:02 Temperature 97 F L Pulse Rate 85 Respiratory Rate 18 Blood Pressure 93/49 L Pulse Oximetry 100 Oxygen Delivery Room Air Exam Const: General: cooperative and healthy appearing Resp: Effort & Inspection: normal respiratory effort and able to speak in complete sentences Auscultation: clear to auscultation bilaterally Cardio: Rate: regular rate Rhythm: regular rhythm GI: Inspection: normal to inspection GI Palp: No No hepatosplenomegaly present Auscultation: normal bowel sounds Rectal Exam: deferred Skin: General skin exam: normal color Psych: Appearance: grossly normal Mental Status: mental status grossly normal Assessment and Plan Assessment and plan (1) History of total colectomy: Code(s): Z90.49 - Acquired absence of other specified parts of digestive tract Status: Acute Assessment and Plan: The patient is deemed a good candidate for the procedure. Consent signed. Will proceed.
[2024-09-23] MEDS: SIMETHICONE ORAL SUSPENSION 20 MG/0.3 ML 30 ML BOTTLE 0.6 ML IRRIGATION (12:06)
[2024-09-23 12:14] VITALS: BP 99/44; PULSE 66; RESP 21; O2SAT 100
[2024-09-23 12:24] VITALS: BP 113/91; PULSE 65; RESP 24; O2SAT 100
--- NOTE | 2024-09-23 12:32 | SUR.PHASEII ---
BG 93
[2024-09-23 12:33] LABS: Glucose Point of Care 93 mg/dl (65-105)
[2024-09-23 12:34] VITALS: BP 123/56; PULSE 65; RESP 28; O2SAT 100
== END 2024-09-23 13:04 | disposition home or self-care (01) ==
PROVIDERS: PCP Nurse Practitioner Family; Visit Provider Internal Medicine Gastroenterology
PROC: 0DJD8ZZ Inspection of Lower Intestinal Tract, Via Natural or Artificial Opening Endoscopic (ICD-10-PCS; CPT 45378; principal; 2024-09-23 11:30)
DX: Z08 Encounter for follow-up examination after completed treatment for malignant neoplasm (principal); Z98.0 Intestinal bypass and anastomosis status; Z90.49 Acquired absence of other specified parts of digestive tract; Z85.038 Personal history of other malignant neoplasm of large intestine; Z86.0100 Personal history of colon polyps, unspecified; E11.9 Type 2 diabetes mellitus without complications; Z79.4 Long term (current) use of insulin; Z79.84 Long term (current) use of oral hypoglycemic drugs; Z87.891 Personal history of nicotine dependence
CPT/HCPCS: 45378; 82948; J2003; J2371; J2704; J7120

== ENCOUNTER 2025-01-19 15:09 | Emergency (ER) | payer MEDICARE, SELFPAY ==
--- NOTE | ~2025-01-19 | XR_ITS ---
CHEST RADIOGRAPH, PA AND LATERAL CLINICAL HISTORY: cough/sob/chf/copd . COMPARISON: 04/04/2023 TECHNIQUE: PA and lateral views of the chest. FINDINGS Increased interstitial markings detected bilaterally, suggesting chronic interstitial lung disease. Bilateral pleural effusions, left greater than right. The cardiomediastinal silhouette is unremarkable. IMPRESSION: Chronic interstitial lung disease with bilateral pleural effusions, left greater than right. Reviewed, dictated and finalized at location A. IMPRESSION: Chronic interstitial lung disease with bilateral pleural effusions, left greate r than right.
--- NOTE | 2025-01-19 15:12 | ED_ITS ---
HPI - URI/Sore Throat General Chief Complaint: Upper Respiratory Infection Stated Complaint: Chest Congestion Time Seen by Provider: 01/19/25 15:14 Source: patient Mode of arrival: ambulatory Limitations: no limitations History of Present Illness HPI Narrative: Matthew is an 80-year-old male patient presenting to the clinic today with complaints of chest congestion and productive cough with green phlegm x 2-3 day s. He reports he does feel little more short of breath than normal. Is unable to lay flat due to being short of breath but this is not new for him. Denies any chest pain. History of myelodysplastic syndrome, interstitial lung disease, and COPD. Former smoker. Denies fevers, chills, or body aches. Denies any URI symptoms. SpO2 lowest 88% and highest was 96% in the clinic today. History ple ural effusion-thoracentesis. by Dr. 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 States he also had a thoracic surgery about 1 year ago where he had his lung glued to his chest- Dr. Garduno at [facility]. Related Data Home Medications ?Medication ?Instructions ?Recorded ?Confirmed ?Last Taken ?Type folic acid 1 mg tablet 1 mg PO DAILY 12/18/20 01/19/25 09/23/24 History sildenafil 25 mg tablet (Viagra) 25 mg PO DAILY PRN ed 12/18/20 01/11/25 Unknown History famotidine 20 mg tablet 20 mg PO BID 01/08/24 01/19/25 Unknown History budesonide 160 mcg-glycopyr 9 2 inh inhalation BID 07/12/24 01/19/25 09/23/24 History mcg-formot 4.8 mcg/actuation HFA inhaler (Breztri Aerosphere) Allergies Allergy/AdvReac Type Severity Reaction Status Date / Time No Known Allergies Allergy Verified 01/19/25 15:13 Review of Systems Review of Systems: Pertinent positives per HPI. Patient denies any fever, chills, rash, headache, visual changes, dizziness, cough, shortness of breath, chest pain, palpitations, nausea, vomiting, diarrhea, constipation, abdominal pain, or any urinary issues. [facility] Past Medical History Medical History Hypertension COPD (chronic obstructive pulmonary disease) Dysphagia Diastolic congestive heart failure Elevated brain natriuretic peptide (BNP) level Right flank pain Skin cancer Colon cancer Shortness of breath Bilateral edema of lower extremity Decreased exercise tolerance Fatigue Cough MDS (myelodysplastic syndrome), low grade Diabetes type 2, controlled Screening for diabetic retinopathy (06/22/21) Mild diabetic retinopathy on 09/21/2024. BMI 30.0-30.9,adult Sun-damaged skin Prostate cancer radiation seeds Diabetic eye exam Dr. Clemente 06/29/2020 Surgical History Surgical History History of thoracentesis History of removal of pigmented skin lesion H/O colectomy Family History Family History Father Diabetes mellitus Heart disease Social History Social History Social History: He lives with and has 3 children. 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 Smoking packs per day: 1 Smoking cigarettes per day: 20.0 Years smoked: 20 Smoking pack-years: 20.00 Smoking status: Former smoker Tobacco type: cigarettes Second hand tobacco smoke exposure: No Alcohol intake: never Substance use: never Substance use type: does not use Lack of Transportation: No Lack of Food: Never True Current Housing: I Have Housing Concerned About Future Housing: No Difficulty Paying Gas/Electric Bills: No Difficulty Paying for Meds: No Currently Unemployed: No Education: Bachelor's Degree Difficulty w/ Childcare or Family Care: No Living arrangements: with family Spiritual care concerns: No Comments At the time of my signature, I reviewed and agree with the nursing past medical, surgical, social, and family history. There is no relevant family history pertinent to the patient complaint. Exam Narrative: General: Well-developed, well nourished, in no apparent distress Head: Normocephalic, atraumatic Eyes: Pupils equally round and reactive to light bilaterally, EOM intact, sclera and conjunctive clear, no discharge, lids normal Ears: TMs intact and clear, ear canals clear, no drainage, grossly hearing normal. Nose: Nares patent, no discharge, no inflammation, no sinus tenderness. Mouth: Oral pharynx mildly red without lesions or masses, good dentition, MMM. Postnasal drip Neck: Supple, trachea midline, no enlargement of anterior or posterior cervical nodes, no thyroid masses or goiter palpable. Cardio: Regular rate and rhythm, s1 and s2 normal, no murmur appreciated. Resp: Lung sounds diminished no rhonchi, rales, wheezing or rubs Extremities: No deformity, no edema, no cyanosis, capillary refill less than 2 seconds, peripheral pulses palpable and strong. Integumentary: [place], warm, and dry, intact without lesion, no rashes. Course Course Emergency Course: Portions of this record may have been created with voice recognition software. Level of Care: Express Care Visit Vital Signs Vital signs: Vital Signs Temperature 36.6 C 01/19/25 15:18 Pulse Rate 71 01/19/25 15:18 Respiratory Rate 16 01/19/25 15:18 Blood Pressure 120/51 L 01/19/25 15:18 Pulse Oximetry 95 01/19/25 15:18 Oxygen Delivery Room Air 01/19/25 15:18 Temperature 36.6 C 01/19/25 15:18 Pulse Rate 71 01/19/25 15:18 Respiratory Rate 16 01/19/25 15:18 Blood Pressure 120/51 L 01/19/25 15:18 Pulse Oximetry 95 01/19/25 15:18 Oxygen Delivery Room Air 01/19/25 15:18 Vital signs reviewed Transfer Transfered to: [facility] Transportation: Other (Private car) Transfer rationale: Bilateral pleural effusion left greater than right, productive cough, increased shortness of breath-recommend labs and CT of his chest Accepting physician: Dr. Igor Mars nurse Transfer comments: Private car MDM - URI/Sore Throat MDM Narrative Medical decision making narrative: At the time of visit patient is resting comfortably on the exam table. Patient appears to be nontoxic. Diagnostics: Chest x-ray was performed chronic interstitial lung disease and bilateral pleural effusion left greater than right. Plan: Patient has bilateral pleural effusions, increase in shortness of breath, and productive cough. SpO2 88% to 96% on room air. Lung sounds are diminished. Recommend transfer to the emergency room for further evaluation. Patient would like to go to [facility] in [place], [place]. Contacted Madisyn COLUNGA at [facility] in [place], [place]. Report was given for continuity of care and Dr. Villarreal accepts patient for transfer. Differential Diagnosis Differential diagnosis: Likely upper respiratory infection, otitis media, sinusitis, viral infection, bronchitis, influenza, pharyngitis and other (COVID) Imaging Data Radiologist's impression: ITS Impressions Chest X-Ray 01/19/25 15:37 IMPRESSION: Chronic interstitial lung disease with bilateral pleural effusions, left greater than right. Discharge Plan Discharge Clinical Impression: Pleural effusion, Shortness of breath, Productive cough Patient Disposition: Acute Care Hospital Condition: Stable Patient Language: Swedish Prescriptions: No Action sildenafil [Viagra] 25 mg tablet 25 mg PO DAILY PRN (Reason: ed) Rx Instructions: administer 30 minutes to 4 hours before activity folic acid 1 mg tablet 1 mg PO DAILY famotidine 20 mg tablet 20 mg PO BID albuterol sulfate 90 mcg/actuation HFA aerosol inhaler 1 puff inhalation Q4H PRN (Reason: shortness of breath or wheezing) Qty: 8.5 5RF Breztri Aerosphere 160-9-4.8 mcg/actuation HFA aerosol inhaler 2 inh inhalation BID (DME) pen needle, diabetic [BD Ultra-Fine Mini Pen Needle] 31 gauge x 3/16 needle See Rx Instructions .Route Qty: 100 3RF Rx Instructions: As directed Bystolic 5 mg tablet 5 mg PO DAILY Qty: 90 3RF insulin glargine [Lantus Solostar U-100 Insulin] 100 unit/mL (3 mL) insulin pen 20 unit subcut DAILY Qty: 6 3RF furosemide 20 mg tablet 40 mg PO DAILY Qty: 60 11RF Tradjenta 5 mg tablet 5 mg PO QAM Qty: 90 3RF Follow-up/Referrals: Dane Birch MD [Primary Care Provider] - Time of Disposition: 16:00 Quality NIHSS Nursing Documentation ED NIHSS nursing documentation: reviewed/agree
--- OUTSIDE RECORDS SUMMARY | 2025-01-19 15:12 | XMS_ITS ---
Author Organization [facility] Address [address] [place] [address] Care Team Providers Care [employer] M[employer] Name Role Phone Dutch Sutherland DO Unavailable [phone] Dane Birch MD Primary Care Provider [phone] Favian Bliss MD Unavailable [phone] Active Problems Patient Care Coordination No te Formatting of this note migh t be different from the original. Kathe Nelson NP 06/18/2023 08:23 AM This is a 78-year-old male patient presenting to the clinic today in consultation for myelodysplastic syndrome and a recurrent right pleural effusion. Patient was referred to the clinic by Dr. Dutch Sutherland. He has a medical history significant for diabetes mellitus and hypertension. He is a former pack per day smoker and pipe user times 18 years who quit in 1976. He was most recently seen by Dr. Sutherland on 06/09/2023 in his note reveals: Interval History: Low-grade myelodysplastic syndrome with refractory anemia. 1. In 2018, he was undergoing serial CBC testing by his PCP when his hemoglobin decreased down to 9.1. 2. Workup ensued including fecal occult blood test-negative, normal levels of vitamin B12 and folate and TSH. 3. 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 Denies any melena or hematochezia B type symptoms. 4. In summer, colonoscopy showed only tubular adenoma of the cecum. No evidence of any bleeding pathology. 5. After my initial consultation October of 2018, screening laboratory workup did not show any signs of myeloma, lymphoma, leukemia or benign inflammatory disorders. 6. At that point, I recommended bone marrow biopsy aspiration which was performed in March of 2019. Surgical pathology showed hypercellular marrow at 60% without any circulating blasts. A. erythroid dyspoiesis. B. Flow cytometric analysis does not show any signs of leukemia or lymphoma. C. 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 D. Fish study shows no evidence of any MDS mutations. 7. Since his his anemia remained stable and he was still active in his day-to-day activities, I we recommended vitamin supplementation that included the following: folic acid 1 mg daily, vitamin B12 at 1000 mcg daily and ferrous sulfate 325 mg once a day. 8. In October 2020, patient developed progressive fatigue and tiredness with slight drop in his hemoglobin and hematocrit. I recommended recombinant erythropoietin injections and he agreed to proceed with these injections in order to increase his overall quality of life, well-being and blood counts. 9. Beginning on November 17 until December 2020, patient has been on Epoetin alpha- EPBX injections which started 97283 units weekly but in the [place] [address] units weekly since he was not having any response to the 50247 unit dose. 10. Earlier in the spring 2020, his hemoglobin increased from 8.5 grams/deciliter up to about 9.2 grams/deciliter. Over the past 8 weeks, his response has leveled off and he is not having any further improvement. He continues to have mild fatigue but able to do what he needs to do on a day-to-day basis. 11. In the summer 2020, I decided to switch him over to Aranesp injections at 500 mcg every 2 weeks. He has received a total of 12 injections. Unfortunately, his hemoglobin has remained between 8 and 9 grams/deciliter. 12. Beginning in August, I decided to try him on hypomethylating chemotherapy with azacitidine. Unfortunately, after 1 dose of the chemotherapy, he developed side effects with 6-10 episodes of vomiting and diarrhea along with lightheadedness and dizziness. I did bring him in for 1-2 days of IV fluids and IV antiemetic therapy. I put a hold on the chemotherapy after that. 13. I did have to transfuse him with 2 units of packed red blood cells in the month of August and also in June. He has been off of medical therapy since early August. 14. Beginning at the end of September 2021, he began his 1st dose of erythroid maturation agent called Luspatercept (Reblozyl) at 1 milligram/kilogram subcutaneous injection every 3 weeks. His hemoglobin has been ranging between 8.5 up to 9.5 grams/deciliter. 15. In March and in April, patient was hospitalized twice at [facility] for symptomatic recurrent right-sided pleural effusion. Patient underwent extensive workup inpatient. He has had 2 thoracentesis with only transient improvement of his symptoms. Cytology has been negative on both occasions. Patient has an elevated sedimentation rate of 135. CT scan on several occasions have shown borderline adenopathy of the abdomen pelvis suggesting possibly underlying lymphoma. TB test has been negative. Cultures of the fluid have been negative for infection. 16. At the last visit: Hemoglobin has increased up to 9.9. His last injection of Luspatercept was on March 24. 17. April 28: PET-CT scan shows soft tissue surrounding the descending thoracic aorta and abdominal aorta showing FDG level of 2.4. In addition, there is a soft tissue nodule in the paraspinal fat of the chest showing SUV of 2.9. Large right pleural effusion noted. Soft tissue thickening surrounding the ureters is nonspecific. Bilateral inguinal adenopathy noted with mild FDG uptake. Sclerotic lesions noted at T10 and T4. 18. Patient returns after undergoing ultrasound-guided thoracentesis at the end of May. 2.2 L of serous pleural fluid was removed. Cytology is negative for malignancy. Flow cytometry on the fluid was negative for malignancy. Assessment/Plan Low-grade MDS with refractory anemia. Recurrent right-sided pleural effusion-exudative. -etiology is unclear. -based on repetitive evaluation of the pleural fluid along with repeated cytology and recent flow cytometry on the pleural fluid, I do not find any evidence of malignancy. Borderline hypermetabolic activity of lymph nodes of the chest, abdomen pelvis mainly in the left inguinal region. Recommendations: 1. Based on my review of the literature and knowledge of this BRYCE drug - Luspatercept for his anemia, I do not find any correlation with this drug and the recurrent pleural effusions. 2. Since his hemoglobin has dropped down to 8.6 today, I will proceed with Luspatercept (Reblozyl) at 1 milligram/kilogram subcutaneous injection every 3 weeks. 3. I will refer him to Dr. Sb Carbajal for evaluation of the recurrent exudative pleural effusion. 4. I will see him back here in 6 weeks for follow-up. The patient has underwent multiple ultrasound-guided thoracentesis on 05/12, 05/30, and 06/20. Dr. Bliss is also involved in this patient's care. Patient's most recent x-ray from 06/11/2023 reveals: FINDINGS: LUNGS: There is pulmonary vascular congestion. Small left pleural effusion is seen with blunting of the left costophrenic angle. A moderate to large right pleural effusion is seen. This opacifies the lower half of the right hemithorax. HEART/MEDIASTINUM: The right heart border is obscured by the pleural effusion. LINES/TUBES: None. BONES: No acute osseous abnormality. IMPRESSION: Findings probably due to congestive heart failure with a moderate to large right pleural effusion. Multiple chest x-rays from previous encounters are available on file for review. Surgical pathology on fluid was obtained on 2 different occasions. The most recent pathology is from thoracentesis completed on 05/30/2023 which reveals: Diagnosis: Fluid for flow cytometry - No monoclonal B-cell or significant blast population identified by flow cytometry - See comment Microscopic Description and Comment: Flow cytometry Flow cytometry analysis shows the lymphocyte-gated events account for 90% of the overall cellularity of the specimen. The CD19+CD20+ B-cell population comprises 1% of lymphocytes, is polytypic, and displays no significant co-expression of CD5 or CD10. There is no significant CD45 dim-gated population. CD34+ events are not increased. Correlation with morphology, clinical and laboratory data is recommended. A malignant process cannot be excluded solely on the basis of this assay. A Harrison-Giemsa stained slide from the flow cytometry specimen was examined for internal water quality technician purposes. Flow cytometry was performed using antibodies to the following cellular antigens: CD45, CD34, CD19, CD20, Hooper, Lambda, CD10, CD5, CD200, CD38, CD16, CD7, CD13, CD64, CD14, HLA-DR, CD11b Total antigens analyzed: 17 Pathology was previously obtained on a specimen from thoracentesis collected on 05/12/2023 which reveals: Diagnosis: A. Fluid for flow cytometry: - No monoclonal B-cell population detected - No abnormal T-cell population detected Microscopic Description and Comment: Specimen quality: Adequate Flow cytometry analysis shows the lymphocyte-gated events account for 89 % of the overall cellularity of the specimen. The CD19+CD20+ B-cell population comprises 1% of lymphocytes, is polytypic, and displays no significant co-expression of CD5 or CD10. The CD45 dim-gated events are <1% of overall cellularity, and CD34+ events are not increased. The CD3+ T-cells comprise 47% of lymphocytes and show no significant loss of arriola T-cell antigens. The CD4 to CD8 ratio is within normal limits. There is a small population of CD56+ events consistent with natural killer cells. There is no CD30 coexpression among T-cells. There is no overt increase in CD38+ plasma cells. The CD45 dim-gated events are <1% of overall cellularity, and CD34+ events are not increased. Correlation with morphology (if submitted), clinical and laboratory data is recommended. A malignant process cannot be excluded solely on the basis of this assay. A Harrison-Giemsa stained slide from the flow cytometry specimen was examined for internal water quality technician purposes. Flow cytometry was performed using antibodies to the following cellular antigens: CD45, CD34, CD19, CD20, Hooper, Lambda, CD10, CD5, CD200, CD38, CD2, CD3, CD4, CD7, CD8, CD56, TCR-GD. Total antigens analyzed: 17 Additional flow cytometry was performed to further characterize T-lymphocytes using antibodies to the following cellular antigens: CD45, CD3, CD52, CD25, CD30. Total antigens analyzed: 5 He is here for further surgical evaluation and discussion. 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, unspecified non-Hodgkin lymphoma type 09/13/2024 Acute pulmonary edema 09/13/2024 Pleural thickening 02/11/2024 Dysphagia 02/04/2024 Diastolic congestive heart failure 11/03/2023 COVID-19 08/22/2023 COPD (chronic obstructive pulmonary disease) Chronic renal disease 07/04/2023 Overview (07/04/2023): Creatinine 0.80 - 1.30 mg/dL 1.40 High 1.30 CM 1.30 CM 1.50 High CM 1.70 High CM 1.50 High CM 1.40 High DM (diabetes mellitus) type II controlled with renal manifestation 07/04/2023 Pleural effusion 06/30/2023 Restrictive lung disease 06/11/2023 Recurrent right pleural effusion 05/29/2023 Cigarette nicotine dependence in remission 05/07 Hypersomnia 05/07/2023 Psychophysiological insomnia 05/07/2023 Weight loss 05/07/2023 SOB (shortness of breath) 05/07/2023 Screening for malignant neoplasm of colon 2020 Overview (11/23/2020): Added automatically from request for surgery [id number] MDS (myelodysplastic syndrome) 05/30/2019 Macrocytic anemia 03/09/2018 Current Treatment and Therapy Plans Adult BMT/ONC - Blood and/or Platelet Administration for Outpatient* Plan Start Date:09/29/2023 Plan Provider:Dutch Sutherland DO Linked Problems MDS (myelodysplastic syndrom e) (HCC) Treatment Medications No medications scheduled. Hydration Therapy Plan* Plan Start Date:11/10/2023 Plan Provider:Dutch Sutherland DO Linked Problems MDS (myelodysplastic syndrom e) (HCC) Treatment Medications No medications scheduled. Luspatercept-aamt for Anemia in Myelodysplastic Syndrome* Plan Start Date: 09/14/2021 Plan Provider:Dutch Sutherland DO Linked Problems MDS (myelodysplastic syndrom e) (HCC) Treatment Medications luspatercept-aamt (REBLOZYL) Past Treatment and Therapy Plans Blood Products Plan Name Start Date Discontinue Date Treatment Medications Discontinue Reason Plan Provider Adult Blood and Platelet Orders for Outpatient 06/25/2021 09/29/2023 No medications scheduled. Provider Discretion Dutch Sutherland DO Oncology Chemotherapy Treatment Plan Name Start Date Discontinue Date Treatment Medications Discontinue Reason Plan Provider Cycles Azacitidine 28 Day Cycles - AML or MDS 09/05/2021 azaCITIDine (VIDAZA) Provider Discretion Dutch Sutherland DO 1 of 6 cycles completed Oncology Supportive Care Therapy Plan Plan Name Start Date Discontinue Date Treatment Medications Discontinue Reason Plan Provider darbepoetin (ARANESP) Injection every 2 weeks-MDS 02/02/2021 07/20/2021 No medications scheduled. Therapy Complete Dutch Sutherland DO EPOETIN ELIO-EPBX (RETACRIT) 11/17/2020 01/26/2021 No medications scheduled. Change in Level of Care Dutch Sutherland, DARBEPOETIN (ARANESP) INJECTION EVERY 3 WEEKS - [facility] [place] 11/17/2020 11/13/2020 No medications scheduled. Financial Dutch Sutherland, Lifetime Dose Tracking * Chemical Lifetime Dose Automatic Entry Manual Entr y Fluoro Time 1.8 minutes 1.8 minutes 0 minutes Air kerma at the reference point (Ka,r) 12.9 mGy 1 2.9 mGy 0 mGy
--- OUTSIDE RECORDS SUMMARY | 2025-01-19 15:12 | XMS_ITS | Clinical Summary ---
Author Organization [facility] Address [address] [place] [address] Care Team Providers Care Marketing Finance Manager Name Role Phone Dutch Sutherland DO Unavailable [phone] Dane Birch MD Primary Care Provider [phone] Favian Bliss MD Unavailable [phone] Allergies No known active allergies Medications nebivoloL (BYSTOLIC) 5 mg tablet Take 1 tablet (5 mg total) by mouth daily 018 Active LEVEMIR FLEXTOUCH U-100 INSULN 100 unit/mL (3 mL) insulin pen Inject 30 Units under the skin nightly 18-20 units 018 Active Tradjenta 5 mg tablet Take 1 tablet (5 mg total) by mouth every morning 022 Active famotidine (PEPCID) 20 mg tablet Take 1 tablet (20 mg total) by mouth daily 30 tablet 2 023 Active albuterol HFA (PROVENTIL HFA,VENTOLIN HFA,PROAIR HFA) 90 mcg/actuation inhaler Inhale 2 puffs 2 (two) times a day 1 each 1 023 Active Additional Information Patient not taking.Reported on 02/11/2024 fluticasone propionate (FLONASE) 50 mcg/actuation nasal spray Administer 1 spray into each nostril 2 (two) times a day 1 each 023 Active acetaminophen ER (TYLENOL) 650 mg 8 hr tablet Take 1 tablet (650 mg total) by mouth every 8 (eight) hours as needed for pain Active furosemide (LASIX) 20 mg tablet Take 2 tablets (40 mg total) by mouth daily 60 tablet 024 Active ipratropium-albu teroL (DUO-NEB) 0.5-2.5 mg/3 mL nebulizer solutionIndicati ons:Chronic Obstructive Pulmonary Disease with Bronchospasms Take 3 mL by nebulization every 6 (six) hours as needed for wheezing or shortness of breath 360 mL 3 024 Active Denta 5000 Plus 1.1 % cream USE 2 TIMES DAILY. BRUSH AND SPIT OUT EXCESS. DO NOT RINSE WITH WATER AFTER Active LANTUS 100 unit/mL (3 mL) pen for injection 024 Active spironolactone (ALDACTONE) 25 mg tablet Take 1 tablet by mouth twice daily 60 tablet 025 Active budesonide-glyco pyr-formoterol (Breztri Aerosphere) 160-9-4.8 mcg/actuation inhaler Inhale 2 puffs by mouth twice daily 11 g 2 025 Active modafiniL (PROVIGIL) 100 mg tabletIndication s:MDS (myelodysplastic syndrome) (HCC) Take 1 tablet (100 mg total) by mouth daily 30 tablet 025 Active folic acid (FOLVITE) 1 mg tabletIndication s:Anemia, unspecified type,Macrocytic anemia Take 1 tablet by mouth once daily 90 tablet 025 Active folic acid (FOLVITE) 1 mg tabletIndication s:Anemia, unspecified type,Macrocytic anemia Take 1 tablet by mouth once daily 90 tablet 025 2024 Discontinued Active Problems Patient Care Coordination No te [...] on Epoetin alpha- EPBX injections which started 68116 units weekly but in the [place] [address]310 units weekly since he was not having any response to the 24661 unit dose. 10. Earlier in the spring [...] in April, patient was hospitalized twice at [facility] for symptomatic recurrent right-sided pleural effusion. Patient [...] flow cytometry specimen was examined for internal chemistry quality control technician purposes. Flow cytometry was performed using antibodies to the following cellular antigens: CD45, CD34, CD19, CD20, Marie, Lambda, CD10, CD5, CD200, CD38, CD16, CD7, [...] flow cytometry specimen was examined for internal chemistry quality control technician purposes. Flow cytometry was performed using antibodies to the following cellular antigens: CD45, CD34, CD19, CD20, Marie, Lambda, CD10, CD5, CD200, CD38, CD2, CD3, [...] (11/23/2020): Added automatically from request for surgery [id number] MDS (myelodysplastic syndrome) 05/30/2019 Macrocytic anemia 03/09/2018 Encounters Date Type Department Care Team Description 01/03/2025 10:45 AM CDT Infusion [facility] [place] at [address] [address] MDS (myelodysplastic syndrome) (HCC) (Primary Dx) 01/03/2025 10:15 AM CDT Lab [facility] at [address] [address] MDS (myelodysplastic syndrome) (HCC) 12/13/2024 1:15 PM CDT Infusion [facility] [place] at [address] [address] MDS (myelodysplastic syndrome) (HCC) (Primary Dx) 12/13/2024 12:45 PM CDT Office Visit [facility] [address] [place] [phone] Dutch Sutherland DO MDS (myelodysplastic syndrome) (HCC) (Primary Dx) 12/13/2024 12:00 PM CDT Lab [facility] at [address] [address] MDS (myelodysplastic syndrome) (HCC) 12/13/2024 Orders Only [facility] at [address] [address] Maya Murray, KEANU 11/15/2024 9:15 AM CDT Infusion [facility] at [address] [address] MDS (myelodysplastic syndrome) (HCC) (Primary Dx) 11/15/2024 8:45 AM CDT Infusion [facility] at [address] [address] MDS (myelodysplastic syndrome) (HCC) 11/15/2024 8:00 AM CDT Lab [facility] at [address] [address] MDS (myelodysplastic syndrome) (HCC) 10/25/2024 8:45 AM RELIEF WORKER Infusion [facility] at [address] [address] MDS (myelodysplastic syndrome) (HCC) (Primary Dx) 10/25/2024 8:00 AM RELIEF WORKER Lab [facility] at [address] [address] MDS (myelodysplastic syndrome) (HCC) from Last 3 Months Immunizations Immunization Administration Dates Next Due Moderna SARS-CoV-2 Monovalent Vaccination (12+ Y RS) 11/22/2020,10/25/2020 ZOSTER LIVE 12/05/2017 Surgical History Surgery Date Site/Laterality Comments US GUIDED BIOPSY LYMPH NODE SUPERFICIAL LEFT 05/12/2023 N/A US GUIDED THORACENTESIS 05/12/2023 N/A US GUIDED THORACENTESIS 05/30/2023 N/A US GUIDED THORACENTESIS 06/20/2023 N/A THORACENTESIS Right x 2 in April 2023 at [facility] EYE SURGERY Bilateral cataract removal PROSTATE SURGERY for CA; had radioactive seeds implanted about 25 yrs ago COLECTOMY 2003 for CA; removed 6 feet of colon EAR SURGERY Left for skin CA, had 18 radiation treatments; 11/2021 US GUIDED THORACENTESIS 10/07/2023 N/A US GUIDED THORACENTESIS 11/03/2023 N/A US GUIDED THORACENTESIS 02/19/2024 N/A Medical History Medical History Date Comments Diabetes mellitus (HCC) Hypertension Myelodysplastic syndrome (HCC) Recurrent pleural effusion on right thoracentesis x 5 since 04/2023 History of pneumonia about 2002 Hearing loss slight; no heari ng aids Wears reading glasses Cancer (HCC) hx prostate, col on, 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 ear COPD (chronic obstructive pu lmonary disease) (HCC) Former smoker Anemia Type 2 diabetes mellitus (HCC) Hypertensive heart disease w ithout heart failure Shortness of breath Family History Medical History Relation Name Comments Arthritis Father Family history of arthritis - (Added by TW Conv) Heart disease Mother Family history of cardiac disorder - (Added by TW Conv) Relation Name Status Comments Father Mother Social History Tobacco Use Types Packs/Day Years Used Date Smoking Tobacco: Former Cigarettes 1 18 1 9 - 1976 Pipe Quit: 1981 Passive Smoke Exposure: Past Smokeless Tobacco: Never Tobacco Cessation:Counseling Given: Not Answered [facility] Utilities Answer Date Recorded In the past 12 months has e iRule, gas, oil, or water [employer] threatened to shut off services in your home? No 11/04/2023 Social Connection and Isolat ion Panel [NHANES] Answer Date Recorded In a typical week, how many times do you talk on the phone with family, friends, or neighbors? Three times a week 11/04/2023 How often do you get togethe r with friends or relatives? Three times a week 11/04/2023 How often do you attend chur ch or mormonism services? More than 4 times per year 11/04/2023 Do you belong to any clubs o r organizations such as sabianism groups, unions, fraternal or athletic groups, or school groups? Yes 11/04/2023 How often do you attend meet ings of the clubs or organizations you belong to? 1 to 4 times per year 11/04/2023 Are you , , di vorced, , never , or living with a partner? 11/04/2023 AUDIT-C Answer Date Recorded Frequency of Alcohol Consumption Not on file 05/06/2024 Q2: How many drinks containi ng alcohol do you have on a typical day when you are drinking? Patient does not drink Frequency of Binge Drinking Not on file 12/2023 Overall Financial Resource Strain (CARDIA) Answe r Date Recorded How hard is it for you to pa y for the very basics like food, housing, medical care, and heating? Not hard at all 11/04/2023 Hunger Vital Sign Answer Date Recorded Within the past 12 months, y ou worried that your food would run out before you got the money to buy more. Never true 11/04/19 24 Within the past 12 months, t he food you bought just didn't last and you didn't have money to get more. Never true 11/04/2023 PRAPARE - Transportation Answer Date Re corded In the past 12 months, has l ack of transportation kept you from medical appointments or from getting medications? No 12/2023 In the past 12 months, has l ack of transportation kept you from meetings, work, or from getting things needed for daily living? No 11/04/2023 Housing Stability Vital Sign Answer Randy e Recorded In the last 12 months, was t here a time when you were not able to pay the mortgage or rent on time? No 11/04/2023 In the last 12 months, how many places have you lived? 1 11/04/2023 In the last 12 months, was t here a time when you did not have a steady place to sleep or slept in a correction (including now)? No 11/04/2023 Personal Safety Answer Date Recorded Have you ever been in or are you currently in a harmful physical or emotional relationship or is someone making you feel afraid or unsafe? Denies 11/03/2023 Sex and Gender Information Value Date Recorded Sex Assigned at Not on file Legal Sex Male 5:19 AM RELIEF WORKER Gender Identity Not on file Sexual Orientation Not on file Obstetrics History Last Filed Vital Signs Vital Sign Reading Time Taken Comments Blood Pressure 119/68 01/03/2025 11:17 AM CDT Pulse 65 01/03/2025 11:18 AM CDT Temperature 36.3 C (97.3 F) 12/13/2024 1:06 PM CDT Respiratory Rate 18 12/13/2024 1:06 PM CDT Oxygen Saturation 96% 01/03/2025 11:18 AM CDT Inhaled Oxygen Concentration - - Weight 68.7 kg (151 lb 6.4 oz) 01/03/2025 11:15 AM CDT Height 170.2 cm (5' 7 ) 12/13/2024 1:06 PM CDT Body Mass Index 23.71 12/13/2024 1:06 PM CDT Plan of Treatment Health Maintenance Due Date Last Done Comments Depression Screening 1945 Dilated Eye Exam 1945 Foot Exam 1945 DTaP/Tdap/Td Vaccine (1 - Tdap) 01/06/1955 Hepatitis B Screening 01/06/1962 Pneumococcal vaccine 65+ (1 of 2 - PCV) 01/06/1963 Well Visit 65+ 01/06/2009 Zoster Vaccine (1 of 2) 01/30/2018 12/05/2017 Covid-19 Vaccine (3 - Modern a risk series) 12/20/2020 11/22/2020, 10/25/2020 Hemoglobin A1C 02/21/2024 08/22/2023, 05/03, 10/07/2022 Albumin Creatinine Ratio, Urine 07/04/2024 , 10/07/2022 Lipid Panel 10/06/2024 10/06/2023 Fall Risk Assessment 11/05/2024 11/06/2023 Influenza Vaccine (Season Ended) 2025 eGFR 01/03/2026 01/03/2025, 11/30, 11/15/2024, Additional history exists Abdominal Aortic Aneurysm (A AA) Screen Completed 11/05/2023, 02/19/2023 Procedures Procedure Name Priority Date/Time Associated Diagnosis Comments EGFR Routine 01/03/2025 10:31 AM CDT MDS (myelodysplastic syndrome) (HCC) BLOOD SMEAR REVIEW Routine 01/03/2025 10 :31 AM CDT MDS (myelodysplastic syndrome) (HCC) DIFFERENTIAL AUTO Routine 01/03/2025 10: 31 AM CDT MDS (myelodysplastic syndrome) (HCC) CBC WITH AUTO DIFFERENTIAL Routine 01/03/2025 10:31 AM CDT MDS (myelodysplastic syndrome) (HCC) COMPREHENSIVE METABOLIC PANEL Routine 01/03/2025 10:31 AM CDT MDS (myelodysplastic syndrome) (HCC) EGFR Routine 12/13/2024 12:10 PM CDT MDS (myelodysplastic syndrome) (HCC) DIFFERENTIAL AUTO Routine 12/13/2024 12: 10 PM CDT MDS (myelodysplastic syndrome) (HCC) COMPREHENSIVE METABOLIC PANEL Routine 12/13/2024 12:10 PM CDT MDS (myelodysplastic syndrome) (HCC) CBC WITH AUTO DIFFERENTIAL Routine 12/13/2024 12:10 PM CDT MDS (myelodysplastic syndrome) (HCC) EGFR Routine 11/15/2024 8:39 AM CDT MDS (myelodysplastic syndrome) (HCC) DIFFERENTIAL AUTO Routine 11/15/2024 8:3 9 AM CDT MDS (myelodysplastic syndrome) (HCC) CBC WITH AUTO DIFFERENTIAL Routine 11/15/2024 8:39 AM CDT MDS (myelodysplastic syndrome) (HCC) COMPREHENSIVE METABOLIC PANEL Routine 11/15/2024 8:39 AM CDT MDS (myelodysplastic syndrome) (HCC) EGFR Routine 10/25/2024 7:59 AM RELIEF WORKER MDS (myelodysplastic syndrome) (HCC) DIFFERENTIAL AUTO Routine 10/25/2024 7:5 9 AM RELIEF WORKER MDS (myelodysplastic syndrome) (HCC) CBC WITH AUTO DIFFERENTIAL Routine 10/25/2024 7:59 AM RELIEF WORKER MDS (myelodysplastic syndrome) (HCC) COMPREHENSIVE METABOLIC PANEL Routine 10/25/2024 7:59 AM RELIEF WORKER MDS (myelodysplastic syndrome) (HCC) CT ABDOMEN PELVIS WO CONTRAST IP Routine 11/05/2023 6:24 AM RELIEF WORKER POCT LIPID PANEL Routine 10/06/2023 12:0 0 PM RELIEF WORKER Lipid screening HEMOGLOBIN A1C Routine 08/22/2023 10:01 PM RELIEF WORKER ALBUMIN CREATININE RATIO, URINE Routine 07/04/2023 11:45 AM CDT from Last 3 Months or Most Recently Relevant to Health Maintenance Results * Blood smear review (01/03/2025 10:31 AM CDT) Pathologist [facility] RBC morphology Consistent with RBC Indicies Comment:Testing performed by : [facility], [address] [place] [address]., [id number] Platelet estimate Adequate SHANE VIEYRA Comment:Testing performed by : [facility], [address] [place] [address]., [address] Blood 01/03/2025 10:3 1 AM CDT 01/03/2025 10:34 AM CDT us Sally Brand VENTILATOR SPECIALIST LAB BLOOD ORDERABLES Final Re sult SHANE VIEYRA [address] [facility] Department [place] [address] * (ABNORMAL) eGFR (01/03/2025 10:31 AM CDT) Pathologist [facility] eGFR 38(L) >=60 mL/min/1. 73 m2 Comment: Interpretive Data Reference Interval Normal >/= 90 mL/min/1.73m2 Mildly decreased* 60 - 89 mL/min/1.73m2 Mildly to moderately decreased 45 - 59 mL/min/1.73m2 Moderately to severely decreased 30 - 44 mL/min/1.73m2 Severely decreased 15 - 29 mL/min/1.73m2 Kidney Failure < 15 mL/min/1.73m2 *Relative to young adult level Estimated glomerular filtration rate is determined by the 2020 CKD-EPI equation recommended by the National Kidney Foundation (A Unifying Approach to GFR Estimation: Recommendations of the NKF-ASK Task Force on Reassessing the Inclusion of Race in Diagnosing Kidney Disease, JASN 2020). The CKD-EPI equation should not be used for patients with unstable renal function and has not been validated in children and those over 70. Current interpretive data was last reviewed 2021. Testing performed by: [address] [address] Blood 01/03/2025 10:3 1 AM CDT 01/03/2025 10:34 AM CDT Sally Brand VENTILATOR SPECIALIST LAB BLOOD ORDERABLES [facility] [address] [facility] Department [place] [address] * (ABNORMAL) Differential, auto (01/03/2025 10:31 AM CDT) Neutrophil abs 6.07 1.50 - 6.50 K/cumm Comment:Testing performed by : [address] [address] Imm gran abs 0.22(H) 0.00 - 0.10 K/cumm SHANE Comment:Testing performed by : [address] [address] Lymphocyte abs 2.64 0.80 - 3.30 K/cumm SHANE Comment:Testing performed by : [address] [address] Monocyte abs 1.02(H) 0.20 - 0.80 K/cumm SHANE Comment:Testing performed by : [address] [address] Eosinophil abs 0.06 0.00 - 0.50 K/cumm SHANE Comment:Testing performed by : [address] [address] Basophil abs 0.02 0.00 - 0.10 K/cumm SHANE Comment:Testing performed by : [address] [address] Neutrophil pct 60.5 % SHANE Comment: Differential consistent with previous result. Interpretive Data Percent cell count reference ranges are not reported, since discordance with absolute values may lead to misinterpretation of CBC data. Current Interpretive Data was last revised on 2017. Testing performed by: [address] [address] Imm gran pct 2.2 % SHANE Comment: Interpretive Data Percent cell count reference ranges are not reported, since discordance with absolute values may lead to misinterpretation of CBC data. Current Interpretive Data was last revised on 2017. Testing performed by: [address] [address] Lymphocyte pct 26.3 % [facility] Comment: Interpretive Data Percent cell count reference ranges are not reported, since discordance with absolute values may lead to misinterpretation of CBC data. Current Interpretive Data was last revised on 2017. Testing performed by: [address] [address] Monocyte pct 10.2 % [facility] Comment: Interpretive Data Percent cell count reference ranges are not reported, since discordance with absolute values may lead to misinterpretation of CBC data. Current Interpretive Data was last revised on 2017. Testing performed by: [address] [address] Eosinophil pct 0.6 % [facility] Comment: Interpretive Data Percent cell count reference ranges are not reported, since discordance with absolute values may lead to misinterpretation of CBC data. Current Interpretive Data was last revised on 2017. Testing performed by: [address] [address] Basophil pct 0.2 % [facility] Comment: Interpretive Data Percent cell count reference ranges are not reported, since discordance with absolute values may lead to misinterpretation of CBC data. Current Interpretive Data was last revised on 2017. Testing performed by: [address] [address] Blood 01/03/2025 10:3 1 AM CDT 01/03/2025 10:34 AM CDT us Sally Brand VENTILATOR SPECIALIST LAB BLOOD ORDERABLES Final [facility] [address] [facility] Department [place] [address] * (ABNORMAL) CBC with auto differential (01/03/2025 10:31 AM CDT) WBC 10.03(H) 3.80 - 9.90 K/cumm Comment:Testing performed by : [address] [address] Hgb 10.3(L) 13.0 - 17.5 g/dL SHANE Comment:Testing performed by : [address] [address] Hct 31.4(L) 38.9 - 50.3 % SHANE Comment:Testing performed by : [address] [address] Plt 362 150 - 400 K/cumm SHANE Comment:Testing performed by : [address] [address] MPV 11.4 9.1 - 12.3 fL SHANE Comment:Testing performed by : [address] [address] RBC 3.00(L) 4.30 - 5.80 M/cumm SHANE Comment:Testing performed by : [address] [address] MCV 104.7(H) 81.3 - 96.4 fL SHANE Comment:Testing performed by : [address] [address] MCH 34.3(H) 27.1 - 33.3 pg SHANE Comment:Testing performed by : [address] [address] MCHC 32.8 32.3 - 35.7 g/dL SHANE VIEYRA Comment:Testing performed by : [address] [address] RDW CV 25.7(H) 11.1 - 14.9 % SHANE VIEYRA Comment:Testing performed by : [address] [address] RDW SD 97.3(H) 35.7 - 48.1 fL SHANE VIEYRA Comment:Testing performed by : [address] [address] NRBC abs 0.10(H) 0.00 - 0.01 K/cumm SHANE Comment:Testing performed by : [address] [address] ANC Prelim 6.07 1.50 - 6.50 K/cumm SHANE Comment: Interpretive Data The rapid ANC is a preliminary automated count and may vary from the final ANC (Neut Abs) reported in the WBC differential that follows. Current interpretive data was last revised 2024. Testing performed by: [address] [address] Blood 01/03/2025 10:3 1 AM CDT 01/03/2025 10:34 AM CDT us Sally Brand VENTILATOR SPECIALIST LAB BLOOD ORDERABLES Final Re sult SHANE [address] [facility] Department of Laboratories [place], [place] [id number] * (ABNORMAL) Comprehensive metabolic panel (01/03/2025 10:31 AM CDT) Sodium 144 135 - 145 mmol/L Comment:Testing performed by : [address] [address] Potassium, pl 4.7 3.3 - 4.9 mmol/L SHANE VIEYRA Comment:Testing performed by : [address] [address] Chloride 104 97 - 110 mmol/L SHANE Comment:Testing performed by : [address] [address] CO2 28 22 - 32 mmol/L SHANE Comment:Testing performed by : [address] [address] Anion gap 12 2 - 15 mmol/L SHANE Comment:Testing performed by : [address] [address] BUN 37(H) 6 - 25 mg/dL SHANE Comment:Testing performed by : [address] [address] Creatinine 1.80(H) 0.80 - 1.30 mg/dL SHANE Comment:Testing performed by : [address] [address] Glucose 211(H) 70 - 199 mg/dL SHANE Comment: Interpretive Data Fasting glucose >/= 126 mg/dl is diagnostic for diabetes. Fasting is defined as no caloric intake for at least 8 hours. Fasting glucose between 100 mg/dl to 125 mg/dl is diagnostic of prediabetes. In a patient with classic symptoms of hyperglycemia or hyperglycemic crisis, a random glucose >/= 200 mg/dl is diagnostic for diabetes. In the absence of unequivocal hyperglycemia, results should be confirmed by repeat testing. The classification and Diagnosis of Diabetes Diabetes Care 202; 46: S19-S40. Current interpretive data was last revised 2022. Testing performed by: [address] [address] Calcium 9.3 8.5 - 10.3 mg/dL SHANE Comment:Testing performed by : [address] [address] Bilirubin, total 0.6 0.1 - 1.2 mg/dL SHANE Comment:Testing performed by : [address] [address] Protein, pl 7.3 6.5 - 8.5 g/dL SHANE Comment:Testing performed by : [address] [address] Albumin 4.0 3.5 - 5.0 g/dL SHANE Comment:Testing performed by : [address] [address] Alk phos 69 40 - 130 Units/L SHANE Comment:Testing performed by : [address] [address] ALT 9 7 - 55 Units/L SHANE Comment:Testing performed by : [address] [address] AST 13 10 - 50 Units/L SHANE Comment:Testing performed by : [address] [address] Blood 01/03/2025 10:3 1 AM CDT 01/03/2025 10:34 AM CDT us Sally Brand VENTILATOR SPECIALIST LAB BLOOD ORDERABLES Final Re sult SHANE [address] [facility] Department [place] [address] * (ABNORMAL) eGFR (12/13/2024 12:10 PM CDT) eGFR 43(L) >=60 mL/min/1. 73 m2 Comment: Interpretive Data Reference Interval Normal >/= 90 mL/min/1.73m2 Mildly decreased* 60 - 89 mL/min/1.73m2 Mildly to moderately decreased 45 - 59 mL/min/1.73m2 Moderately to severely decreased 30 - 44 mL/min/1.73m2 Severely decreased 15 - 29 mL/min/1.73m2 Kidney Failure < 15 mL/min/1.73m2 *Relative to young adult level Estimated glomerular filtration rate is determined by the 2020 CKD-EPI equation recommended by the National Kidney Foundation (A Unifying Approach to GFR Estimation: Recommendations of the NKF-ASK Task Force on Reassessing the Inclusion of Race in Diagnosing Kidney Disease, JASN 202). The CKD-EPI equation should not be used for patients with unstable renal function and has not been validated in children and those over 70. Current interpretive data was last reviewed 2021. Testing performed by: [address], [address] Blood 12/13/2024 12:1 0 PM CDT 12/13/2024 12:10 PM CDT Dutch Sutherland DO LAB BLOOD ORDERABLES Final R esult SHANE VIEYRA [address] [facility] Department [place] [address] * (ABNORMAL) Differential, auto (12/13/2024 12:10 PM CDT) Neutrophil abs 6.25 1.50 - 6.50 K/cumm Comment:Testing performed by : [address] [address] Imm gran abs 0.18(H) 0.00 - 0.10 K/cumm SHANE Comment:Testing performed by : [address] [address] Lymphocyte abs 3.26 0.80 - 3.30 K/cumm SHANE Comment:Testing performed by : [address] [address] Monocyte abs 1.08(H) 0.20 - 0.80 K/cumm SHANE Comment:Testing performed by : [address] [address] Eosinophil abs 0.10 0.00 - 0.50 K/cumm SHANE Comment:Testing performed by : [address] [address] Basophil abs 0.02 0.00 - 0.10 K/cumm SHANE Comment:Testing performed by : [address] [address] Neutrophil pct 57.4 % [facility] Comment: Interpretive Data Percent cell count reference ranges are not reported, since discordance with absolute values may lead to misinterpretation of CBC data. Current Interpretive Data was last revised on 2017. Testing performed by: [address] [address] Imm gran pct 1.7 % SHANE Comment: Interpretive Data Percent cell count reference ranges are not reported, since discordance with absolute values may lead to misinterpretation of CBC data. Current Interpretive Data was last revised on 2017. Testing performed by: [address] [address] Lymphocyte pct 29.9 % [facility] Comment: Interpretive Data Percent cell count reference ranges are not reported, since discordance with absolute values may lead to misinterpretation of CBC data. Current Interpretive Data was last revised on 2017. Testing performed by: [address] [address] Monocyte pct 9.9 % [facility] Comment: Interpretive Data Percent cell count reference ranges are not reported, since discordance with absolute values may lead to misinterpretation of CBC data. Current Interpretive Data was last revised on 2017. Testing performed by: [address] [address] Eosinophil pct 0.9 % [facility] Comment: Interpretive Data Percent cell count reference ranges are not reported, since discordance with absolute values may lead to misinterpretation of CBC data. Current Interpretive Data was last revised on 2017. Testing performed by: [address] [address] Basophil pct 0.2 % [facility] Comment: Interpretive Data Percent cell count reference ranges are not reported, since discordance with absolute values may lead to misinterpretation of CBC data. Current Interpretive Data was last revised on 2017. Testing performed by: [address] [address] Blood 12/13/2024 12:1 0 PM CDT 12/13/2024 12:10 PM CDT us Dutch Sutherland DO LAB BLOOD ORDERABLES Final R esult SHANE VIEYRA [address] [facility] [place] [address] * (ABNORMAL) CBC with auto differential (12/13/2024 12:10 PM CDT) WBC 10.89(H) 3.80 - 9.90 K/cumm Comment:Testing performed by : [address] [address] Hgb 9.4(L) 13.0 - 17.5 g/dL [facility] Comment:Testing performed by : [address] [address] Hct 28.7(L) 38.9 - 50.3 % [facility] Comment:Testing performed by : [address] [address] Plt 355 150 - 400 K/cumm [facility] Comment:Testing performed by : [address] [address] MPV 11.3 9.1 - 12.3 fL [facility] Comment:Testing performed by : [address], [address] RBC 2.71(L) 4.30 - 5.80 M/cumm [facility] Comment:Testing performed by : [address], [address] MCV 105.9(H) 81.3 - 96.4 fL [facility] Comment:Testing performed by : [address], [address] MCH 34.7(H) 27.1 - 33.3 pg [facility] Comment:Testing performed by : [address], [address] MCHC 32.8 32.3 - 35.7 g/dL [facility] Comment:Testing performed by : [address], [address] RDW CV 26.2(H) 11.1 - 14.9 % [facility] Comment:Testing performed by : [address], [address] RDW SD 99.7(H) 35.7 - 48.1 fL [facility] Comment:Testing performed by : [address] [address] NRBC abs 0.10(H) 0.00 - 0.01 K/cumm SHANE Comment:Testing performed by : [address], [address] ANC Prelim 6.25 1.50 - 6.50 K/cumm SHANE Comment: Interpretive Data The rapid ANC is a preliminary automated count and may vary from the final ANC (Neut Abs) reported in the WBC differential that follows. Current interpretive data was last revised 2024. Testing performed by: [address] [address] Blood 12/13/2024 12:1 0 PM CDT 12/13/2024 12:10 PM CDT us Dutch Sutherland DO LAB BLOOD ORDERABLES Final R esult SHANE [facility] [facility] Department [place] [address] * (ABNORMAL) Comprehensive metabolic panel (12/13/2024 12:10 PM CDT) Sodium 142 135 - 145 mmol/L Comment:Testing performed by : [address] [address] Potassium, pl 4.7 3.3 - 4.9 mmol/L SHANE Comment:Testing performed by : [address] [address] Chloride 107 97 - 110 mmol/L SHANE Comment:Testing performed by : [address] [address] CO2 26 22 - 32 mmol/L SHANE Comment:Testing performed by : [address] [address] Anion gap 9 2 - 15 mmol/L SHANE Comment:Testing performed by : [address] [address] BUN 30(H) 6 - 25 mg/dL SHANE Comment:Testing performed by : [address] [address] Creatinine 1.60(H) 0.80 - 1.30 mg/dL SHANE Comment:Testing performed by : [address] [address] Glucose 149 70 - 199 mg/dL SHANE Comment: Interpretive Data Fasting glucose >/= 126 mg/dl is diagnostic for diabetes. Fasting is defined as no caloric intake for at least 8 hours. Fasting glucose between 100 mg/dl to 125 mg/dl is diagnostic of prediabetes. In a patient with classic symptoms of hyperglycemia or hyperglycemic crisis, a random glucose >/= 200 mg/dl is diagnostic for diabetes. In the absence of unequivocal hyperglycemia, results should be confirmed by repeat testing. The classification and Diagnosis of Diabetes Diabetes Care 2021; 46: S19-S40. Current interpretive data was last revised 2022. Testing performed by: [address] [address] Calcium 9.2 8.5 - 10.3 mg/dL SHANE Comment:Testing performed by : [address] [address] Bilirubin, total 0.4 0.1 - 1.2 mg/dL SHANE Comment:Testing performed by : [address] [address] Protein, pl 6.9 6.5 - 8.5 g/dL SHANE Comment:Testing performed by : [address] [address] Albumin 3.9 3.5 - 5.0 g/dL SHANE Comment:Testing performed by : [address] [address] Alk phos 70 40 - 130 Units/L SHANE Comment:Testing performed by : [address] [address] ALT 10 7 - 55 Units/L SHANE Comment:Testing performed by : [address] [address] AST 12 10 - 50 Units/L SHANE Comment:Testing performed by : [address] [address] Blood 12/13/2024 12:1 0 PM CDT 12/13/2024 12:10 PM CDT us Dutch Sutherland DO LAB BLOOD ORDERABLES Final R esult Performing Organization Address [facility] de Phone Number SHANE [address] [facility] [employer] [place] [address] * (ABNORMAL) eGFR (11/15/2024 8:39 AM CDT) eGFR 35(L) >=60 mL/min/1. 73 m2 Comment: Interpretive Data Reference Interval Normal >/= 90 mL/min/1.73m2 Mildly decreased* 60 - 89 mL/min/1.73m2 Mildly to moderately decreased 45 - 59 mL/min/1.73m2 Moderately to severely decreased 30 - 44 mL/min/1.73m2 Severely decreased 15 - 29 mL/min/1.73m2 Kidney Failure < 15 mL/min/1.73m2 *Relative to young adult level Estimated glomerular filtration rate is determined by the 2020 CKD-EPI equation recommended by the National Kidney [employer] (A Unifying Approach to GFR Estimation: Recommendations of the NKF-ASK Task Force on Reassessing the Inclusion of Race in Diagnosing Kidney Disease, JASN 2020). The CKD-EPI equation should not be used for patients with unstable renal function and has not been validated in children and those over 70. Current interpretive data was last reviewed 2021. Testing performed by: [address] [address] Blood 11/15/2024 8:39 AM CDT 11/15/2024 8:44 AM CDT Dutch Sutherland DO LAB BLOOD ORDERABLES Final R esult Performing Organization Address [facility] Co de Phone Number [facility] [address] [facility] [place] [address] * (ABNORMAL) Differential, auto (11/15/2024 8:39 AM CDT) Neutrophil abs 6.0 1.5 - 6.5 K/cumm Comment:Testing performed by : [address] [address] Imm gran abs 0.1 0.0 - 0.1 K/cumm SHANE Comment:Testing performed by : [address], [place]., [address] Lymphocyte abs 2.7 0.8 - 3.3 K/cumm SHANE Comment:Testing performed by : [address] [address] Monocyte abs 1.0(H) 0.2 - 0.8 K/cumm SHANE Comment:Testing performed by : [address], [place]., [address] Eosinophil abs 0.0 0.0 - 0.5 K/cumm SHANE Comment:Testing performed by : [address] [address] Basophil abs 0.0 0.0 - 0.1 K/cumm SHANE Comment:Testing performed by : [address] [address] Neutrophil pct 60.7 % SHANE Comment: Interpretive Data Percent cell count reference ranges are not reported, since discordance with absolute values may lead to misinterpretation of CBC data. Current Interpretive Data was last revised on 2017. Testing performed by: [address] [address] Imm gran pct 1.3 % [facility] Comment: Interpretive Data Percent cell count reference ranges are not reported, since discordance with absolute values may lead to misinterpretation of CBC data. Current Interpretive Data was last revised on 2017. Testing performed by: [address] [address] Lymphocyte pct 27.7 % [facility] Comment: Interpretive Data Percent cell count reference ranges are not reported, since discordance with absolute values may lead to misinterpretation of CBC data. Current Interpretive Data was last revised on 2017. Testing performed by: [address] [address] Monocyte pct 9.9 % [facility] Comment: Interpretive Data Percent cell count reference ranges are not reported, since discordance with absolute values may lead to misinterpretation of CBC data. Current Interpretive Data was last revised on 2017. Testing performed by: [address] [address] Eosinophil pct 0.2 % SHANE Comment: Interpretive Data Percent cell count reference ranges are not reported, since discordance with absolute values may lead to misinterpretation of CBC data. Current Interpretive Data was last revised on 2017. Testing performed by: [address] [address] Basophil pct 0.2 % SHANE VIEYRA Comment: Interpretive Data Percent cell count reference ranges are not reported, since discordance with absolute values may lead to misinterpretation of CBC data. Current Interpretive Data was last revised on 2017. Testing performed by: [address] [address] Blood 11/15/2024 8:39 AM CDT 11/15/2024 8:44 AM CDT Dutch Sutherland DO LAB BLOOD ORDERABLES Final R esult Performing Organization Address City/State/[facility] Co de Phone Number SHANE [facility] [facility] Department [place] [address] * (ABNORMAL) CBC with auto differential (11/15/2024 8:39 AM CDT) WBC 9.8 3.8 - 9.9 K/cumm Comment:Testing performed by : [address] [address] Hgb 9.8(L) 13.0 - 17.5 g/dL SHANE Comment:Testing performed by : [address] [address] Hct 29.0(L) 38.9 - 50.3 % SHANE Comment:Testing performed by : [address] [address] Plt 338 150 - 400 K/cumm SHANE VIEYRA Comment:Testing performed by : [address] [address] MPV 11.6 9.1 - 12.3 fL SHANE VIEYRA Comment:Testing performed by : [address] [address] RBC 2.81(L) 4.30 - 5.80 M/cumm SHAEN Comment:Testing performed by : [address] [address] MCV 103.2(H) 81.3 - 96.4 fL SHANE Comment:Testing performed by : [address] [address] MCH 34.9(H) 27.1 - 33.3 pg SHANE Comment:Testing performed by : [address] [address] MCHC 33.8 32.3 - 35.7 g/dL SHANE Comment:Testing performed by : [address] [address] RDW CV 25.7(H) 11.1 - 14.9 % SHANE Comment:Testing performed by : [address] [address] RDW SD 97.2(H) 35.7 - 48.1 fL SHANE Comment:Testing performed by : [address] [address] NRBC abs 0.14(H) 0.00 - 0.01 K/cumm SHANE Comment:Testing performed by : [address] [address] Blood 11/15/2024 8:39 AM CDT 11/15/2024 8:44 AM CDT us Dutch Sutherland DO LAB BLOOD ORDERABLES Final R esult [facility] [address] [facility] Department [place] [address] * (ABNORMAL) Comprehensive metabolic panel (11/15/2024 8:39 AM CDT) Sodium 140 135 - 145 mmol/L Comment:Testing performed by : [address], [address] Potassium, pl 5.4(H) 3.3 - 4.9 mmol/L SHANE Comment:Testing performed by : [address], [place]., [address] Chloride 101 97 - 110 mmol/L SHANE Comment:Testing performed by : [address], [place]., [address] CO2 30 22 - 32 mmol/L SHANE Comment:Testing performed by : [address], [place]., [address] Anion gap 9 2 - 15 mmol/L SHANE Comment:Testing performed by : [address], [place]., [address] BUN 51(H) 6 - 25 mg/dL SHANE Comment:Testing performed by : [address] [address] Creatinine 1.90(H) 0.80 - 1.30 mg/dL SHANE Comment:Testing performed by : [address] [address] Glucose 201(H) 70 - 199 mg/dL SHANE Comment: Interpretive Data Fasting glucose >/= 126 mg/dl is diagnostic for diabetes. Fasting is defined as no caloric intake for at least 8 hours. Fasting glucose between 100 mg/dl to 125 mg/dl is diagnostic of prediabetes. In a patient with classic symptoms of hyperglycemia or hyperglycemic crisis, a random glucose >/= 200 mg/dl is diagnostic for diabetes. In the absence of unequivocal hyperglycemia, results should be confirmed by repeat testing. The classification and Diagnosis of Diabetes Diabetes Care 2021; 46: S19-S40. Current interpretive data was last revised 2022. Testing performed by: [address] [address] Calcium 9.6 8.5 - 10.3 mg/dL SHANE Comment:Testing performed by : [address] [address] Bilirubin, total 0.8 0.1 - 1.2 mg/dL SHANE Comment:Testing performed by : [address], [place]., [address] Protein, pl 7.0 6.5 - 8.5 g/dL SHANE Comment:Testing performed by : [address] [address] Albumin 4.0 3.5 - 5.0 g/dL SHANE Comment:Testing performed by : [address] [address] Alk phos 67 40 - 130 Units/L SHANE Comment:Testing performed by : [address] [address] ALT 9 7 - 55 Units/L SHANE Comment:Testing performed by : [address] [address] AST 14 10 - 50 Units/L SHANE Comment:Testing performed by : [address] [address] Blood 11/15/2024 8:39 AM CDT 11/15/2024 8:44 AM CDT Dutch Sutherland DO LAB BLOOD ORDERABLES Final R esult SHANE [address] [facility] Department [place] [address] * (ABNORMAL) eGFR (10/25/2024 7:59 AM RELIEF WORKER) eGFR 38(L) >=60 mL/min/1. 73 m2 Comment: Interpretive Data Reference Interval Normal >/= 90 mL/min/1.73m2 Mildly decreased* 60 - 89 mL/min/1.73m2 Mildly to moderately decreased 45 - 59 mL/min/1.73m2 Moderately to severely decreased 30 - 44 mL/min/1.73m2 Severely decreased 15 - 29 mL/min/1.73m2 Kidney Failure < 15 mL/min/1.73m2 *Relative to young adult level Estimated glomerular filtration rate is determined by the 2020 CKD-EPI equation recommended by the National Kidney Foundation (A Unifying Approach to GFR Estimation: Recommendations of the NKF-ASK Task Force on Reassessing the Inclusion of Race in Diagnosing Kidney Disease, JASN 2020). The CKD-EPI equation should not be used for patients with unstable renal function and has not been validated in children and those over 70. Current interpretive data was last reviewed 2021. Testing performed by: [address] [address] Blood 10/25/2024 7:59 AM RELIEF WORKER 10/25/2024 8:02 AM RELIEF WORKER Dutch Sutherland DO LAB BLOOD ORDERABLES Final R esult [facility] [address] [facility] Department [place] [address] * (ABNORMAL) Differential, auto (10/25/2024 7:59 AM RELIEF WORKER) Neutrophil abs 6.0 1.5 - 6.5 K/cumm Comment:Testing performed by : [address] [address] Imm gran abs 0.2(H) 0.0 - 0.1 K/cumm SHANE Comment:Testing performed by : [address] [address] Lymphocyte abs 2.1 0.8 - 3.3 K/cumm SHANE Comment:Testing performed by : [address] [address] Monocyte abs 1.0(H) 0.2 - 0.8 K/cumm SHANE Comment:Testing performed by : [address] [address] Eosinophil abs 0.1 0.0 - 0.5 K/cumm SHANE Comment:Testing performed by : [address] [address] Basophil abs 0.0 0.0 - 0.1 K/cumm SHANE Comment:Testing performed by : [address] [address] Neutrophil pct 64.0 % SHANE Comment: Interpretive Data Percent cell count reference ranges are not reported, since discordance with absolute values may lead to misinterpretation of CBC data. Current Interpretive Data was last revised on 2017. Testing performed by: [address] [address] Imm gran pct 2.0 % [facility] Comment: Interpretive Data Percent cell count reference ranges are not reported, since discordance with absolute values may lead to misinterpretation of CBC data. Current Interpretive Data was last revised on 2017. Testing performed by: [address] [address] Lymphocyte pct 22.8 % [facility] Comment: Interpretive Data Percent cell count reference ranges are not reported, since discordance with absolute values may lead to misinterpretation of CBC data. Current Interpretive Data was last revised on 2017. Testing performed by: [address] [address] Monocyte pct 10.5 % [facility] Comment: Interpretive Data Percent cell count reference ranges are not reported, since discordance with absolute values may lead to misinterpretation of CBC data. Current Interpretive Data was last revised on 2017. Testing performed by: [address] [address] Eosinophil pct 0.6 % [facility] Comment: Interpretive Data Percent cell count reference ranges are not reported, since discordance with absolute values may lead to misinterpretation of CBC data. Current Interpretive Data was last revised on 2017. Testing performed by: [address] [address] Basophil pct 0.1 % [facility] Comment: Interpretive Data Percent cell count reference ranges are not reported, since discordance with absolute values may lead to misinterpretation of CBC data. Current Interpretive Data was last revised on 2017. Testing performed by: [address] [address] Blood 10/25/2024 7:59 AM RELIEF WORKER 10/25/2024 8:02 AM RELIEF WORKER us Dutch Sutherland DO LAB BLOOD ORDERABLES Final R esult SHANE [address] [facility] Department of Laboratories [place], [place] [id number] * (ABNORMAL) CBC with auto differential (10/25/2024 7:59 AM RELIEF WORKER) [facility] WBC 9.4 3.8 - 9.9 K/cumm Comment:Testing performed by : [address], [address] Hgb 9.5(L) 13.0 - 17.5 g/dL SHANE Comment:Testing performed by : [address], [address] Hct 28.3(L) 38.9 - 50.3 % SHANE Comment:Testing performed by : [address] [address] Plt 361 150 - 400 K/cumm SHANE Comment:Testing performed by : [address], [address] MPV 11.5 9.1 - 12.3 fL SHANE Comment:Testing performed by : [address], [address] RBC 2.76(L) 4.30 - 5.80 M/cumm SHANE Comment:Testing performed by : [address] [address] MCV 102.5(H) 81.3 - 96.4 fL SHANE Comment:Testing performed by : [address] [address] MCH 34.4(H) 27.1 - 33.3 pg SHANE Comment:Testing performed by : [address], [address] MCHC 33.6 32.3 - 35.7 g/dL SHANE Comment:Testing performed by : [address], [address] RDW CV 25.6(H) 11.1 - 14.9 % SHANE Comment:Testing performed by : [address], [address] RDW SD 95.6(H) 35.7 - 48.1 fL SHANE Comment:Testing performed by : [address], [address] NRBC abs 0.09(H) 0.00 - 0.01 K/cumm SHANE Comment:Testing performed by : [address] [address] Blood 10/25/2024 7:59 AM RELIEF WORKER 10/25/2024 8:02 AM RELIEF WORKER Dutch Sutherland DO LAB BLOOD ORDERABLES Final R esult SHANE [address] [facility] Department [place] [address] * (ABNORMAL) Comprehensive metabolic panel (10/25/2024 7:59 AM RELIEF WORKER) Sodium 142 135 - 145 mmol/L Comment:Testing performed by : [address] [address] Potassium, pl 4.5 3.3 - 4.9 mmol/L SHANE Comment:Testing performed by : [address] [address] Chloride 103 97 - 110 mmol/L SHANE Comment:Testing performed by : [address] [address] CO2 28 22 - 32 mmol/L SHANE Comment:Testing performed by : [address] [address] Anion gap 11 2 - 15 mmol/L SHANE Comment:Testing performed by : [address] [address] BUN 44(H) 6 - 25 mg/dL SHANE Comment:Testing performed by : [address] [address] Creatinine 1.80(H) 0.80 - 1.30 mg/dL SHANE Comment:Testing performed by : [address] [address] Glucose 171 70 - 199 mg/dL SHANE Comment: Interpretive Data Fasting glucose >/= 126 mg/dl is diagnostic for diabetes. Fasting is defined as no caloric intake for at least 8 hours. Fasting glucose between 100 mg/dl to 125 mg/dl is diagnostic of prediabetes. In a patient with classic symptoms of hyperglycemia or hyperglycemic crisis, a random glucose >/= 200 mg/dl is diagnostic for diabetes. In the absence of unequivocal hyperglycemia, results should be confirmed by repeat testing. The classification and Diagnosis of Diabetes Diabetes Care 202; 46: S19-S40. Current interpretive data was last revised 2022. Testing performed by: [facility], [address] [place] [address]., [address] Calcium 9.3 8.5 - 10.3 mg/dL SHANE Comment:Testing performed by : [address] [address] Bilirubin, total 0.5 0.1 - 1.2 mg/dL SHANE Comment:Testing performed by : [address] [address] Protein, pl 7.1 6.5 - 8.5 g/dL SHANE Comment:Testing performed by : [address] [address] Albumin 3.8 3.5 - 5.0 g/dL SHANE Comment:Testing performed by : [address] [address] Alk phos 70 40 - 130 Units/L SHANE Comment:Testing performed by : [address] [address] ALT 12 7 - 55 Units/L SHANE Comment:Testing performed by : [address] [address] AST 13 10 - 50 Units/L SHANE Comment:Testing performed by : [address] [address] Blood 10/25/2024 7:59 AM RELIEF WORKER 10/25/2024 8:02 AM RELIEF WORKER us Dutch Sutherland DO LAB BLOOD ORDERABLES Final R esult SHANE VIEYRA [address] [facility] Department [place] [address] * CT Abdomen Pelvis WO Contrast (11/05/2023 6:24 AM RELIEF WORKER) Anatomical Region Laterality Modality Body N/A Computed Tomogra phy 11/05/2023 7:48 AM RELIEF WORKER Narrative 11/05/2023 8:05 AM RELIEF WORKER EXAM DESCRIPTION: CT ABDOMEN PELVIS WO CONTRAST REASON FOR STUDY: Suspected lymphadenopathy in the abdomen on CT chest prior day, unexplained pleural effusion, body wall edema. Recurrent effusions and thoracentesis. History of colon cancer and myelodysplastic disorder. TECHNIQUE: CT scan of the abdomen and pelvis performed without intravenous and without oral contrast using helical scanning technique. Reconstructed coronal and sagittal MPR images reviewed. All images stored on PACS. Automated exposure control was used as a dose optimization technique for this examination. COMPARISON: CT chest prior day. Ultrasound kidneys dated 07/04/2023. Outside CT chest from 03/21/2023 now available. FINDINGS: The sensitivity for detection of visceral lesions is diminished without the use of intravenous contrast. LOWER CHEST: Extensive interstitial and peripheral pleural-based densities similar to recent chest radiograph. Persistent moderate bilateral effusions. LIVER: Normal size. No identified cystic or solid masses. GALLBLADDER: Normally distended BILE DUCTS: No intrahepatic or extrahepatic ductal dilatation. SPLEEN: Normal size. No focal lesions. PANCREAS: No identified cystic or solid masses. No significant calcifications. No adjacent inflammation or peripancreatic fluid collections. Pancreatic duct not dilated. ADRENALS: Normal. KIDNEYS/URINARY TRACT: Right kidney demonstrates extensive perinephric band like interstitial densities only partially visualized on prior chest CTs. Subtle 0.4 cm density lower pole may represent a nonobstructive stone. Midpole cortical hypodensities consistent with cysts described on prior ultrasound. The adjacent renal artery and vein have generally normal caliber with interstitial density surrounding the extending to the periaortic space. Left kidney demonstrates no stone. Perinephric stranding with confluence opacity along the left renal artery extending to the aorta with additional surrounding soft tissue density here and a conglomerate density extending over 2.7 cm length that was referenced on prior day CT. Exact nature uncertain though consider infiltrative change along the vasculature or vasculitis. Lymphadenopathy not excluded. Urinary bladder is unremarkable. GI: No dilated loops of bowel. Surgical clips identified right lower quadrant and rectosigmoid region. PERITONEUM: No ascites or free air. RETROPERITONEUM: Induration and periaortic soft tissue densities extend from the hemidiaphragms distally to the aortic bifurcation tapering and be becoming less severe distally. The iliac vessels are relatively pneumonic involved. REPRODUCTIVE: Seed implants identified within the prostate. No surrounding induration or adenopathy. VASCULATURE: As above periaortic soft tissue densities and induration with wall thickening. This has a relatively similar appearance to the thoracic aorta and great vessels described on prior CT chest. Inflammatory change, edema, vasculitis, infiltrative lesion including lymphoma not excluded. MUSCULOSKELETAL: No significant abnormality. OTHER: No other abnormality. IMPRESSION: Extensive periaortic soft tissue densities and induration extending from the hemidiaphragms distally to the aortic bifurcation. This has a relatively similar appearance to the thoracic aorta and great vessels described on prior CT chest. Inflammatory change, edema, vasculitis, infiltrative lesion including lymphoma not excluded. Left kidney demonstrates extensive perinephric stranding and perinephric soft tissue densities extending to the periaortic space. This has a relatively similar appearance to the retroperitoneal/periaortic soft tissue density described on prior day's CT chest. Right renal cysts described on prior ultrasound. THIS IS AN ELECTRONICALLY VERIFIED FINAL REPORT 11/05/2023 8:05 AM - Electronically signed by West Whiteside M.D. RB: NEHA Report ID: [id number] Reading Location: [id number] Procedure Note West Whiteside MD - 11/05/2023 EXAM DESCRIPTION: CT ABDOMEN PELVIS WO CONTRAST REASON FOR STUDY: Suspected lymphadenopathy in the abdomen on CT chestprior day, unexplained pleural effusion, body wall edema. Recurrent effusionsand thoracentesis. History of colon cancer and myelodysplastic disorder. TECHNIQUE: CT scan of the abdomen and pelvis performed without intravenousand without oral contrast using helical scanning technique. Reconstructed coronal and sagittal MPR images reviewed. All images stored on PACS.Automated exposure control was used as a dose optimization technique for this examination. COMPARISON: CT chest prior day. Ultrasound kidneys dated 07/04/2023. Outside CT chest from 03/21/2023 now available. FINDINGS: The sensitivity for detection of visceral lesions is diminished without the use of intravenous contrast. LOWER CHEST: Extensive interstitial and peripheral pleural-baseddensities similar to recent chest radiograph. Persistent moderate bilateraleffusions. LIVER: Normal size. No identified cystic or solid masses. GALLBLADDER: Normally distended BILE DUCTS: No intrahepatic or extrahepatic ductal dilatation. SPLEEN: Normal size. No focal lesions. PANCREAS: No identified cystic or solid masses. No significant calcifications. No adjacent inflammation or peripancreatic fluidcollections. Pancreatic duct not dilated. ADRENALS: Normal. KIDNEYS/URINARY TRACT: Right kidney demonstrates extensive perinephric band like interstitial densities only partially visualized on prior chest CTs. Subtle 0.4 cmdensity lower pole may represent a nonobstructive stone. Midpole cortical hypodensities consistent with cysts described on prior ultrasound. The adjacent renal artery and vein have generally normal caliber withinterstitial density surrounding the extending to the periaortic space. Left kidney demonstrates no stone. Perinephric stranding with confluence opacity along the left renal artery extending to the aorta with additional surrounding soft tissue density here and a conglomerate density extendingover 2.7 cm length that was referenced on prior day CT. Exact nature uncertain though consider infiltrative change along the vasculature or vasculitis. Lymphadenopathy not excluded. Urinary bladder is unremarkable. GI: No dilated loops of bowel. Surgical clips identified right lower quadrant and rectosigmoid region. PERITONEUM: No ascites or free air. RETROPERITONEUM: Induration and periaortic soft tissue densities extendfrom the hemidiaphragms distally to the aortic bifurcation tapering and bebecoming less severe distally. The iliac vessels are relatively pneumonicinvolved. REPRODUCTIVE: Seed implants identified within the prostate. Nosurrounding induration or adenopathy. VASCULATURE: As above periaortic soft tissue densities and indurationwith wall thickening. This has a relatively similar appearance to the thoracic aorta and great vessels described on prior CT chest. Inflammatory change, edema, vasculitis, infiltrative lesion including lymphoma not excluded. MUSCULOSKELETAL: No significant abnormality. OTHER: No other abnormality. IMPRESSION: Extensive periaortic soft tissue densities and induration extending fromthe hemidiaphragms distally to the aortic bifurcation. This has a relatively similar appearance to the thoracic aorta and great vessels described onprior CT chest. Inflammatory change, edema, vasculitis, infiltrative lesion including lymphoma not excluded. Left kidney demonstrates extensive perinephric stranding and perinephricsoft tissue densities extending to the periaortic space. This has a relatively similar appearance to the retroperitoneal/periaortic soft tissue density described on prior day's CT chest. Right renal cysts described on prior ultrasound. THIS IS AN ELECTRONICALLY VERIFIED FINAL REPORT 11/05/2023 8:05 AM - Electronically signed by West Whiteside M.D. RB: NEHA Report ID: [id number] Reading Location: [place] [address] Khushbu Richardson MD IMG CT PROCEDURES Nuris l Result * POCT lipid panel (10/06/2023 12:00 PM RELIEF WORKER) Cholesterol, POC 102 mg/dL Comment:GLU = 144 HDL, POC 30 mg/dL Triglycerides, POC 101 mg/dL LDL Cholesterol POC 52 mg/dL Chol/HDL Ratio, POC 1.8 Non-HDL Cholesterol, POC 73 mg/dL Cholesterol Total, POC 102 mg/dL Capillary blood 10/06/2023 1 2:00 PM RELIEF WORKER Don Killian MD POINT OF CARE TEST O RDERABLES Final Result * (ABNORMAL) Hemoglobin A1c (08/22/2023 10:01 PM RELIEF WORKER) Hgb A1C 7.3(H) 4.0 - 5.6 % [facility]ANE VIEYRA Estimated Average Glucose 163 mg/dL SHANE VIEYRA Comment: The ADA recommends reporting an estimated Average Glucose (eAG) with all Hemoglobin A1c results using the equation derived from a study of 507 normal and diabetic adults. Minority populations were underrepresented and children were not included. (Diabetes Care 31:0326-0175, 2008). The eAG is not equivalent to a fasting glucose. Blood 08/22/2023 10:0 1 PM RELIEF WORKER 08/22/2023 10:04 PM RELIEF WORKER Gonzalez Alcala MD LAB BLOOD ORDERABLES Final Re sult SHANE [address] [facility] Department [place] [address] * (ABNORMAL) Albumin Creatinine Ratio, Urine (07/04/2023 11:45 AM CDT) Albumin Ur 60.1 mg/L SHANE VIEYRA Comment: Interpretive Data No reference range established. Current interpretive data was last revised 2019. Creatinine Ur 137.0 mg/dL SHANE VIEYRA Comment: Interpretive Data No reference range established. Current interpretive data was last revised 2019. Albumin Creatinine Ratio, Ur 44(H) 1 - 29 mg/g SHANE VIEYRA Urine 07/04/2023 11:4 5 AM CDT 07/04/2023 11:56 AM CDT us oDn Pizarro MD LAB URINE ORDERABLES Final Resu lt [facility]ANE [address] [facility] Department [place] [address] from Last 3 Months or Most Recently Relevant to Health Maintenance Insurance [facility] MEDICARE [facility] MEDICARE Advance Directives For more information, please contact: [phone] * Full Code (Latest Code Status on File) Date Activated Date Inactivated Comments 11/03/2023 9:40 PM 11/06/2023 6:57 PM * Full Code Date Activated Date Inactivated Comments 08/22/2023 8:30 PM 08/25/2023 5:32 PM * Full Code Date Activated Date Inactivated Comments 07/02/2023 5:43 PM 07/08/2023 8:18 PM * Full Code Date Activated Date Inactivated Comments 05/29/2023 7:29 PM 05/31/2023 4:27 PM * Full Code Date Activated Date Inactivated Comments 01/25/2021 11:02 AM 01/25/2021 4:06 PM Care Teams Marketing Finance Manager Relationship Specialty Start Date End Date Dane Birch MD [address] [address] PCP - General Family Medicine 02/16/21 Dutch Sutherland DO [address] [place] [address] MEDICAL ONCOLOGY, [address] [address] Medical Oncologist/Family Practitioner Hematology and Oncology 11/16/20 Favian Bliss MD [address] [address] Consulting Physician Pulmonary Disease 07/01/23
--- OUTSIDE RECORDS SUMMARY | 2025-01-19 15:12 | XMS_ITS | Referral Summary ---
Author Organization [facility] Address [address] [place] [address] Care Team Providers Care Utility Gelatin Maker Name Role Phone Dutch Sutherland DO Unavailable [phone] Dane Birch MD Primary Care Provider [phone] Favian Bliss MD Unavailable [phone] Encounters Date Type Department Care Team Description 01/03/2025 10:15 AM CDT Lab [facility] at [address] [address] MDS (myelodysplastic syndrome) (HCC) 01/03/2025 10:45 AM CDT Infusion [facility] at [address] [address] MDS (myelodysplastic syndrome) (HCC) (Primary Dx) 12/13/2024 Orders Only [facility] at [address] [address] Maya Murray, RN 12/13/2024 12:00 PM CDT Lab [facility] at [address] [address] MDS (myelodysplastic syndrome) (HCC) 12/13/2024 1:15 PM CDT Infusion [facility] at [address] [address] MDS (myelodysplastic syndrome) (HCC) (Primary Dx) 12/13/2024 12:45 PM CDT Office Visit [facility] [address] [place] [address] [address] [place] [address] Dutch Sutherland DO MDS (myelodysplastic syndrome) (HCC) (Primary Dx) 11/15/2024 9:15 AM CDT Infusion [facility] at [address] [place] [address] MDS (myelodysplastic syndrome) (HCC) (Primary Dx) 11/15/2024 8:00 AM CDT Lab [facility] at [address] [address] MDS (myelodysplastic syndrome) (HCC) 11/15/2024 8:45 AM CDT Infusion [facility] at [address] [place] [address] MDS (myelodysplastic syndrome) (HCC) 10/25/2024 8:00 AM DOCUMENTATION ENGINEER Lab [facility] at [address] [address] MDS (myelodysplastic syndrome) (HCC) 10/25/2024 8:45 AM DOCUMENTATION ENGINEER Infusion [facility] at [address] [address] MDS (myelodysplastic syndrome) (HCC) (Primary Dx) from Last 3 Months Allergies No known active allergies Medications nebivoloL [...] (two) times a day 1 each 1 Active Additional Information Patient not taking.Reported on 02/11/2024 fluticasone propionate (FLONASE) 50 mcg/actuation nasal spray Administer 1 spray into each nostril 2 (two) times a day 1 each Active acetaminophen ER (TYLENOL) 650 mg 8 hr tablet Take 1 tablet (650 mg total) by mouth every 8 (eight) hours as needed for pain Active furosemide (LASIX) 20 mg tablet Take 2 tablets (40 mg total) by mouth daily 60 tablet Active ipratropium-albu teroL (DUO-NEB) 0.5-2.5 mg/3 mL nebulizer solutionIndicati ons:Chronic Obstructive Pulmonary Disease with Bronchospasms Take 3 mL by nebulization every 6 (six) hours as needed for wheezing or shortness of breath 360 mL 3 Active Denta 5000 Plus 1.1 % cream USE 2 TIMES DAILY. BRUSH AND SPIT OUT EXCESS. DO NOT RINSE WITH WATER AFTER Active LANTUS 100 unit/mL (3 mL) pen for injection Active spironolactone (ALDACTONE) 25 mg tablet Take [...] on Epoetin alpha- EPBX injections which started 74896 units weekly but in the [place] [address] units weekly since he was not having any response to the 08276 unit dose. 10. Earlier in the spring [...] in April, patient was hospitalized twice at [facility] for symptomatic recurrent right-sided pleural effusion. [...] flow cytometry specimen was examined for internal machined parts quality inspector purposes. Flow cytometry was performed using antibodies to the following cellular antigens: CD45, CD34, CD19, CD20, Judson, Lambda, CD10, CD5, CD200, CD38, CD16, CD7, [...] flow cytometry specimen was examined for internal machined parts quality inspector purposes. 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 More than 4 times per year 11/04/2023 Do you belong to any clubs o r organizations such as presybeterian groups, unions, fraternal or athletic groups, or [...] place to sleep or slept in a custodial (including now)? No 11/04/2023 Personal Safety Answer Date Recorded Have you ever been in or are you currently in a harmful physical or emotional relationship or is someone making you feel afraid or unsafe? Denies 11/03/2023 Sex and Gender Information Value Date Recorded Sex Assigned at Not on file Legal Sex Male 5:19 AM DOCUMENTATION ENGINEER Gender Identity Not on file Sexual Orientation Not on file Last Filed Vital Signs Vital Sign Reading [...] 12/13/2024 1:06 PM CDT Plan of Treatment Not on file Procedures Procedure Name Priority Date/Time Associated Diagnosis [...] syndrome) (HCC) EGFR Routine 10/25/2024 7:59 AM DOCUMENTATION ENGINEER MDS (myelodysplastic syndrome) (HCC) DIFFERENTIAL AUTO Routine 10/25/2024 7:5 9 AM DOCUMENTATION ENGINEER MDS (myelodysplastic syndrome) (HCC) CBC WITH AUTO DIFFERENTIAL Routine 10/25/2024 7:59 AM DOCUMENTATION ENGINEER MDS (myelodysplastic syndrome) (HCC) COMPREHENSIVE METABOLIC PANEL Routine 10/25/2024 7:59 AM DOCUMENTATION ENGINEER MDS (myelodysplastic syndrome) (HCC) CT ABDOMEN PELVIS WO CONTRAST IP Routine 11/05/2023 6:24 AM DOCUMENTATION ENGINEER POCT LIPID PANEL Routine 10/06/2023 12:0 0 PM DOCUMENTATION ENGINEER Lipid screening HEMOGLOBIN A1C Routine 08/22/2023 10:01 PM DOCUMENTATION ENGINEER ALBUMIN CREATININE RATIO, URINE Routine 07/04/2023 11:45 AM CDT from Last 3 Months or Most Recently Relevant to Health Maintenance Results * Blood smear review (01/03/2025 10:31 AM CDT) RBC morphology Consistent with RBC Indicies Comment:Testing performed by : [facility], [address] [place] [address]., [address] Platelet estimate Adequate SHANE VIEYRA Comment:Testing performed by : [facility], [address] [place] [address]., [address] Blood 01/03/2025 10:3 1 AM CDT 01/03/2025 10:34 AM CDT us Sally Brand TEST DATA DEVELOPER LAB BLOOD ORDERABLES Final Re sult SHANE VIEYRA [address] [facility] Department [place] [address] * (ABNORMAL) eGFR (01/03/2025 10:31 AM CDT) eGFR 38(L) >=60 mL/min/1. 73 m2 Comment: [...] Inclusion of Race in Diagnosing Kidney Disease, IDALMISSN 2020). The CKD-EPI equation should not be used for patients with unstable renal function and has not been validated in children and those over 70. Current interpretive data was last reviewed 2021. Testing performed by: [address] [address] Blood 01/03/2025 10:3 1 AM CDT 01/03/2025 10:34 AM CDT us Sally Brand TEST DATA DEVELOPER LAB BLOOD ORDERABLES Final Re sult SHANE [address] [facility] Department [place] [address] * (ABNORMAL) Differential, auto (01/03/2025 10:31 AM CDT) Neutrophil abs 6.07 1.50 - 6.50 K/cumm Comment:Testing performed by : [address] [address] Imm gran abs 0.22(H) 0.00 - 0.10 K/cumm SHANE Comment:Testing performed by : [address] [address] Lymphocyte abs 2.64 0.80 - 3.30 K/cumm SHANE Comment:Testing performed by : [address] [address] Monocyte abs 1.02(H) 0.20 - 0.80 K/cumm SHANE Comment:Testing performed by : [address] [address] Eosinophil abs 0.06 0.00 - 0.50 K/cumm SHANE Comment:Testing performed by : [address] [address] Basophil abs 0.02 0.00 - 0.10 K/cumm SHANE Comment:Testing performed by : [address] [address] Neutrophil pct 60.5 % SHANE Comment: Differential consistent with previous result. Interpretive Data Percent cell count reference ranges are not reported, since discordance with absolute values may lead to misinterpretation of CBC data. Current Interpretive Data was last revised on 2017. Testing performed by: [address] [address] Imm gran pct 2.2 % [facility] Comment: Interpretive Data Percent cell count reference ranges are not reported, since discordance with absolute values may lead to misinterpretation of CBC data. Current Interpretive Data was last revised on 2017. Testing performed by: [address] [address] Lymphocyte pct 26.3 % [facility] Comment: Interpretive Data Percent cell count reference ranges are not reported, since discordance with absolute values may lead to misinterpretation of CBC data. Current Interpretive Data was last revised on 2017. Testing performed by: [address] [address] Monocyte pct 10.2 % [facility] Comment: Interpretive Data Percent cell count reference ranges are not reported, since discordance with absolute values may lead to misinterpretation of CBC data. Current Interpretive Data was last revised on 2017. Testing performed by: [address] [address] Eosinophil pct 0.6 % [facility] Comment: Interpretive Data Percent cell count reference ranges are not reported, since discordance with absolute values may lead to misinterpretation of CBC data. Current Interpretive Data was last revised on 2017. Testing performed by: [address] [address] Basophil pct 0.2 % [facility] Comment: Interpretive Data Percent cell count reference ranges are not reported, since discordance with absolute values may lead to misinterpretation of CBC data. Current Interpretive Data was last revised on 2017. Testing performed by: [address] [address] Blood 01/03/2025 10:3 1 AM CDT 01/03/2025 10:34 AM CDT Sally Brand TEST DATA DEVELOPER LAB BLOOD ORDERABLES Final Re sult SHANE [address] [facility] Department [place] [address] * (ABNORMAL) CBC with auto differential (01/03/2025 10:31 AM CDT) WBC 10.03(H) 3.80 - 9.90 K/cumm Comment:Testing performed by : [address] [address] Hgb 10.3(L) 13.0 - 17.5 g/dL SHANE Comment:Testing performed by : [address] [address] Hct 31.4(L) 38.9 - 50.3 % SHANE Comment:Testing performed by : [address] [address] Plt 362 150 - 400 K/cumm SHANE Comment:Testing performed by : [address] [address] MPV 11.4 9.1 - 12.3 fL SHANE Comment:Testing performed by : [address] [address] RBC 3.00(L) 4.30 - 5.80 M/cumm SHANE Comment:Testing performed by : [address] [address] MCV 104.7(H) 81.3 - 96.4 fL SHANE Comment:Testing performed by : [address] [address] MCH 34.3(H) 27.1 - 33.3 pg SHANE Comment:Testing performed by : [address] [address] MCHC 32.8 32.3 - 35.7 g/dL SHANE Comment:Testing performed by : [address] [address] RDW CV 25.7(H) 11.1 - 14.9 % SHANE Comment:Testing performed by : [address], [address] RDW SD 97.3(H) 35.7 - 48.1 fL SHANE Comment:Testing performed by : [address] [address] NRBC abs 0.10(H) 0.00 - 0.01 K/cumm SHANE VIEYRA Comment:Testing performed by : [address] [address] ANC Prelim 6.07 1.50 - 6.50 K/cumm SHANE Comment: Interpretive Data The rapid ANC is a preliminary automated count and may vary from the final ANC (Neut Abs) reported in the WBC differential that follows. Current interpretive data was last revised 2024. Testing performed by: [address] [address] Blood 01/03/2025 10:3 1 AM CDT 01/03/2025 10:34 AM CDT us Sally Brand TEST DATA DEVELOPER LAB BLOOD ORDERABLES Final Re sult [facility] [address] [facility] Department [place] [address] * (ABNORMAL) Comprehensive metabolic panel (01/03/2025 10:31 AM CDT) Sodium 144 135 - 145 mmol/L Comment:Testing performed by : [address] [address] Potassium, pl 4.7 3.3 - 4.9 mmol/L SHANE Comment:Testing performed by : [address] [address] Chloride 104 97 - 110 mmol/L SHANE Comment:Testing performed by : [address] [address] CO2 28 22 - 32 mmol/L SHANE Comment:Testing performed by : [address] [address] Anion gap 12 2 - 15 mmol/L SHANE Comment:Testing performed by : [address] [address] BUN 37(H) 6 - 25 mg/dL SHANE Comment:Testing performed by : [address] [address] Creatinine 1.80(H) 0.80 - 1.30 mg/dL SHANE Comment:Testing performed by : [address] [address] Glucose 211(H) 70 - 199 mg/dL SHANE [...] was last revised 2022. Testing performed by: [address] [address] Calcium 9.3 8.5 - 10.3 mg/dL [facility] Comment:Testing performed by : [address] [address] Bilirubin, total 0.6 0.1 - 1.2 mg/dL SHANE Comment:Testing performed by : [address] [address] Protein, pl 7.3 6.5 - 8.5 g/dL SHANE Comment:Testing performed by : [address] [address] Albumin 4.0 3.5 - 5.0 g/dL SHANE Comment:Testing performed by : [address] [address] Alk phos 69 40 - 130 Units/L SHANE Comment:Testing performed by : [address] [address] ALT 9 7 - 55 Units/L SHANE Comment:Testing performed by : [address] [address] AST 13 10 - 50 Units/L SUEDAIANA Comment:Testing performed by : [facility], [address] [place] [address]., [address] Blood 01/03/2025 10:3 1 AM CDT 01/03/2025 10:34 AM CDT Sally Brand TEST DATA DEVELOPER LAB BLOOD ORDERABLES Final Re sult Performing Organization Address [facility] Co de Phone Number SHANE [address] [facility] [place] [address] * (ABNORMAL) eGFR (12/13/2024 12:10 PM CDT) [...] was last reviewed 2021. Testing performed by: [facility], [address] [place] [address]., [address] Blood 12/13/2024 12:1 0 PM CDT 12/13/2024 12:10 PM CDT Dutch Sutherland DO LAB BLOOD ORDERABLES Final R esult Performing Organization Address [facility]/ZIP Co de Phone Number SHANE [address] [facility] [place] [address] * (ABNORMAL) Differential, auto (12/13/2024 12:10 PM CDT) Neutrophil abs 6.25 1.50 - 6.50 K/cumm Comment:Testing performed by : [address] [address] Imm gran abs 0.18(H) 0.00 - 0.10 K/cumm SHANE Comment:Testing performed by : [address] [address] Lymphocyte abs 3.26 0.80 - 3.30 K/cumm [facility] Comment:Testing performed by : [address] [address] Monocyte abs 1.08(H) 0.20 - 0.80 K/cumm [facility] Comment:Testing performed by : [address] [address] Eosinophil abs 0.10 0.00 - 0.50 K/cumm [facility] Comment:Testing performed by : [address] [address] Basophil abs 0.02 0.00 - 0.10 K/cumm [facility] Comment:Testing performed by : [address] [address] Neutrophil pct 57.4 % [facility] Comment: Interpretive Data Percent cell count reference ranges are not reported, since discordance with absolute values may lead to misinterpretation of CBC data. Current Interpretive Data was last revised on 2017. Testing performed by: [address] [address] Imm gran pct 1.7 % [facility] Comment: Interpretive Data Percent cell count reference ranges are not reported, since discordance with absolute values may lead to misinterpretation of CBC data. Current Interpretive Data was last revised on 2017. Testing performed by: [address] [address] Lymphocyte pct 29.9 % [facility] Comment: Interpretive Data Percent cell count reference ranges are not reported, since discordance with absolute values may lead to misinterpretation of CBC data. Current Interpretive Data was last revised on 2017. Testing performed by: [address] [address] Monocyte pct 9.9 % SHANE Comment: Interpretive Data Percent cell count reference ranges are not reported, since discordance with absolute values may lead to misinterpretation of CBC data. Current Interpretive Data was last revised on 2017. Testing performed by: [address] [address] Eosinophil pct 0.9 % SHANE Comment: Interpretive Data Percent cell count reference ranges are not reported, since discordance with absolute values may lead to misinterpretation of CBC data. Current Interpretive Data was last revised on 2017. Testing performed by: [address] [address] Basophil pct 0.2 % SHANE Comment: Interpretive Data Percent cell count reference ranges are not reported, since discordance with absolute values may lead to misinterpretation of CBC data. Current Interpretive Data was last revised on 2017. Testing performed by: [address] [address] Blood 12/13/2024 12:1 0 PM CDT 12/13/2024 12:10 PM CDT us Dutch Sutherland DO LAB BLOOD ORDERABLES Final R esult [facility] [address] [facility] Department of Laboratories [place], [place] [id number] * (ABNORMAL) CBC with auto differential (12/13/2024 12:10 PM CDT) WBC 10.89(H) 3.80 - 9.90 K/cumm Comment:Testing performed by : [address] [address] Hgb 9.4(L) 13.0 - 17.5 g/dL SHANE VIEYRA Comment:Testing performed by : [address] [address] Hct 28.7(L) 38.9 - 50.3 % SHANE Comment:Testing performed by : [address] [address] Plt 355 150 - 400 K/cumm SHANE Comment:Testing performed by : [address] [address] MPV 11.3 9.1 - 12.3 fL SHANE Comment:Testing performed by : [address] [address] RBC 2.71(L) 4.30 - 5.80 M/cumm SHANE Comment:Testing performed by : [address] [address] MCV 105.9(H) 81.3 - 96.4 fL SHANE Comment:Testing performed by : [address] [address] MCH 34.7(H) 27.1 - 33.3 pg SHANE Comment:Testing performed by : [address] [address] MCHC 32.8 32.3 - 35.7 g/dL SHANE Comment:Testing performed by : [address] [address] RDW CV 26.2(H) 11.1 - 14.9 % SHANE Comment:Testing performed by : [address] [address] RDW SD 99.7(H) 35.7 - 48.1 fL SHANE Comment:Testing performed by : [address] [address] NRBC abs 0.10(H) 0.00 - 0.01 K/cumm SHANE Comment:Testing performed by : [address] [address] ANC Prelim 6.25 1.50 - 6.50 K/cumm SHANE Comment: Interpretive Data The rapid ANC is a preliminary automated count and may vary from the final ANC (Neut Abs) reported in the WBC differential that follows. Current interpretive data was last revised 2024. Testing performed by: [address], [address] Blood 12/13/2024 12:1 0 PM CDT 12/13/2024 12:10 PM CDT Dutch Sutherland DO LAB BLOOD ORDERABLES Final R esult SHANE [address] [facility] Department [place] [address] * (ABNORMAL) Comprehensive metabolic panel (12/13/2024 12:10 PM CDT) Sodium 142 135 - 145 mmol/L Comment:Testing performed by : [address] [address] Potassium, pl 4.7 3.3 - 4.9 mmol/L SHANE Comment:Testing performed by : [address] [address] Chloride 107 97 - 110 mmol/L SHANE Comment:Testing performed by : [address] [address] CO2 26 22 - 32 mmol/L SHANE Comment:Testing performed by : [address] [address] Anion gap 9 2 - 15 mmol/L SHANE Comment:Testing performed by : [address] [address] BUN 30(H) 6 - 25 mg/dL SHANE Comment:Testing performed by : [address] [address] Creatinine 1.60(H) 0.80 - 1.30 mg/dL SHANE Comment:Testing performed by : [address] [address] Glucose 149 70 - 199 mg/dL SHANE [...] was last revised 2022. Testing performed by: [address] [address] Calcium 9.2 8.5 - 10.3 mg/dL SHANE Comment:Testing performed by : [address] [address] Bilirubin, total 0.4 0.1 - 1.2 mg/dL SHANE Comment:Testing performed by : [address] [address] Protein, pl 6.9 6.5 - 8.5 g/dL SHANE Comment:Testing performed by : [address] [address] Albumin 3.9 3.5 - 5.0 g/dL SHANE Comment:Testing performed by : [address] [address] Alk phos 70 40 - 130 Units/L SHANE Comment:Testing performed by : [address] [address] ALT 10 7 - 55 Units/L SHANE Comment:Testing performed by : [address] [address] AST 12 10 - 50 Units/L SHANE Comment:Testing performed by : [address] [address] Blood 12/13/2024 12:1 0 PM CDT 12/13/2024 12:10 PM CDT us Dutch Sutherland DO LAB BLOOD ORDERABLES Final R esult SHANE VIEYRA [address] [facility] Department of Laboratories [place], [place] [id number] * (ABNORMAL) eGFR (11/15/2024 8:39 AM CDT) [...] was last reviewed 2021. Testing performed by: [address] [address] Blood 11/15/2024 8:39 AM CDT 11/15/2024 8:44 AM CDT us Dutch Sutherland DO LAB BLOOD ORDERABLES Final R esult SHANE [address] [facility] Department [place] [address] * (ABNORMAL) Differential, auto (11/15/2024 8:39 AM CDT) Neutrophil abs 6.0 1.5 - 6.5 K/cumm Comment:Testing performed by : [address] [address] Imm gran abs 0.1 0.0 - 0.1 K/cumm SHANE VIEYRA Comment:Testing performed by : [address] [address] Lymphocyte abs 2.7 0.8 - 3.3 K/cumm SHANE VIEYRA Comment:Testing performed by : [address] [address] Monocyte abs 1.0(H) 0.2 - 0.8 K/cumm SHANE VIEYRA Comment:Testing performed by : [address] [address] Eosinophil abs 0.0 0.0 - 0.5 K/cumm SHANE Comment:Testing performed by : [address] [address] Basophil abs 0.0 0.0 - 0.1 K/cumm SHANE Comment:Testing performed by : [address] [address] Neutrophil pct 60.7 % [facility] Comment: Interpretive Data Percent cell count reference ranges are not reported, since discordance with absolute values may lead to misinterpretation of CBC data. Current Interpretive Data was last revised on 2017. Testing performed by: [address] [address] Imm gran pct 1.3 % [facility] Comment: Interpretive Data Percent cell count reference ranges are not reported, since discordance with absolute values may lead to misinterpretation of CBC data. Current Interpretive Data was last revised on 2017. Testing performed by: [address] [address] Lymphocyte pct 27.7 % [facility] Comment: Interpretive Data Percent cell count reference ranges are not reported, since discordance with absolute values may lead to misinterpretation of CBC data. Current Interpretive Data was last revised on 2017. Testing performed by: [address] [address] Monocyte pct 9.9 % [facility] Comment: Interpretive Data Percent cell count reference ranges are not reported, since discordance with absolute values may lead to misinterpretation of CBC data. Current Interpretive Data was last revised on 2017. Testing performed by: [address] [address] Eosinophil pct 0.2 % SHANE Comment: Interpretive Data Percent cell count reference ranges are not reported, since discordance with absolute values may lead to misinterpretation of CBC data. Current Interpretive Data was last revised on 2017. Testing performed by: [address] [address] Basophil pct 0.2 % SHANE Comment: Interpretive Data Percent cell count reference ranges are not reported, since discordance with absolute values may lead to misinterpretation of CBC data. Current Interpretive Data was last revised on 2017. Testing performed by: [address] [address] Blood 11/15/2024 8:39 AM CDT 11/15/2024 8:44 AM CDT Dutch Sutherland DO LAB BLOOD ORDERABLES Final R esult [facility] [address] [facility] Department of Laboratories [place], [place] [id number] * (ABNORMAL) CBC with auto differential (11/15/2024 8:39 AM CDT) WBC 9.8 3.8 - 9.9 K/cumm Comment:Testing performed by : [address] [address] Hgb 9.8(L) 13.0 - 17.5 g/dL SHANE Comment:Testing performed by : [address] [address] Hct 29.0(L) 38.9 - 50.3 % SHANE Comment:Testing performed by : [address] [address] Plt 338 150 - 400 K/cumm SHANE Comment:Testing performed by : [address] [address] MPV 11.6 9.1 - 12.3 fL SHANE Comment:Testing performed by : [address] [address] RBC 2.81(L) 4.30 - 5.80 M/cumm SHANE Comment:Testing performed by : [address] [address] MCV 103.2(H) 81.3 - 96.4 fL SHANE Comment:Testing performed by : [address] [address] MCH 34.9(H) 27.1 - 33.3 pg SHANE VIEYRA Comment:Testing performed by : [address] [address] MCHC 33.8 32.3 - 35.7 g/dL SHANE VIEYRA Comment:Testing performed by : [address] [address] RDW CV 25.7(H) 11.1 - 14.9 % SHANE VIEYRA Comment:Testing performed by : [address] [address] RDW SD 97.2(H) 35.7 - 48.1 fL SHANE VIEYRA Comment:Testing performed by : [address] [address] NRBC abs 0.14(H) 0.00 - 0.01 K/cumm SHANE VIEYRA Comment:Testing performed by : [address] [address] Blood 11/15/2024 8:39 AM CDT 11/15/2024 8:44 AM CDT us Dutch Sutherland DO LAB BLOOD ORDERABLES Final R esult SHANE VIEYRA [address] [facility] Department of Laboratories [place], [place] [id number] * (ABNORMAL) Comprehensive metabolic panel (11/15/2024 8:39 AM CDT) Sodium 140 135 - 145 mmol/L Comment:Testing performed by : [address] [address] Potassium, pl 5.4(H) 3.3 - 4.9 mmol/L SHANE VIEYRA Comment:Testing performed by : [address] [address] Chloride 101 97 - 110 mmol/L SHANE VIEYRA Comment:Testing performed by : [address] [address] CO2 30 22 - 32 mmol/L SHANE VIEYRA Comment:Testing performed by : [address] [address] Anion gap 9 2 - 15 mmol/L [facility] Comment:Testing performed by : [address] [address] BUN 51(H) 6 - 25 mg/dL SHANE Comment:Testing performed by : [address] [address] Creatinine 1.90(H) 0.80 - 1.30 mg/dL SHANE Comment:Testing performed by : [address] [address] Glucose 201(H) 70 - 199 mg/dL [facility] Comment: Interpretive Data Fasting glucose >/= 126 [...] was last revised 2022. Testing performed by: [address] [address] Calcium 9.6 8.5 - 10.3 mg/dL SHANE Comment:Testing performed by : [address] [address] Bilirubin, total 0.8 0.1 - 1.2 mg/dL SHANE Comment:Testing performed by : [address] [address] Protein, pl 7.0 6.5 - 8.5 g/dL SHANE Comment:Testing performed by : [address] [address] Albumin 4.0 3.5 - 5.0 g/dL SHANE Comment:Testing performed by : [address] [address] Alk phos 67 40 - 130 Units/L SHANE Comment:Testing performed by : [address] [address] ALT 9 7 - 55 Units/L SHANE VIEYRA Comment:Testing performed by : [address] [address] AST 14 10 - 50 Units/L SHANE VIEYRA Comment:Testing performed by : [facility], [address] [place] [address]., [address] Blood 11/15/2024 8:39 AM CDT 11/15/2024 8:44 AM CDT Dutch Sutherland DO LAB BLOOD ORDERABLES Final R esult SHANE [address] [facility] Department [place] [address] * (ABNORMAL) eGFR (10/25/2024 7:59 AM DOCUMENTATION ENGINEER) eGFR 38(L) >=60 mL/min/1. 73 m2 Comment: [...] was last reviewed 2021. Testing performed by: [address] [address] Blood 10/25/2024 7:5 9 AM DOCUMENTATION ENGINEER 10/25/2024 8:02 AM DOCUMENTATION ENGINEER Dutch Sutherland DO LAB BLOOD ORDERABLES Final R esult SHANE [address] [facility] Department [place] [address] * (ABNORMAL) Differential, auto (10/25/2024 7:59 AM DOCUMENTATION ENGINEER) Neutrophil abs 6.0 1.5 - 6.5 K/cumm Comment:Testing performed by : [address] [address] Imm gran abs 0.2(H) 0.0 - 0.1 K/cumm SHANE Comment:Testing performed by : [address] [address] Lymphocyte abs 2.1 0.8 - 3.3 K/cumm SHANE Comment:Testing performed by : [address] [address] Monocyte abs 1.0(H) 0.2 - 0.8 K/cumm SHANE Comment:Testing performed by : [address] [address] Eosinophil abs 0.1 0.0 - 0.5 K/cumm [facility]:Testing performed by : [address] [address] Basophil abs 0.0 0.0 - 0.1 K/cumm [facility] Comment:Testing performed by : [address] [address] Neutrophil pct 64.0 % [facility] Comment: Interpretive Data Percent cell count reference ranges are not reported, since discordance with absolute values may lead to misinterpretation of CBC data. Current Interpretive Data was last revised on 2017. Testing performed by: [address] [address] Imm gran pct 2.0 % SHANE Comment: Interpretive Data Percent cell count reference ranges are not reported, since discordance with absolute values may lead to misinterpretation of CBC data. Current Interpretive Data was last revised on 2017. Testing performed by: [address] [address] Lymphocyte pct 22.8 % SHANE Comment: Interpretive Data Percent cell count reference ranges are not reported, since discordance with absolute values may lead to misinterpretation of CBC data. Current Interpretive Data was last revised on 2017. Testing performed by: [address] [address] Monocyte pct 10.5 % SHANE Comment: Interpretive Data Percent cell count reference ranges are not reported, since discordance with absolute values may lead to misinterpretation of CBC data. Current Interpretive Data was last revised on 2017. Testing performed by: [address] [address] Eosinophil pct 0.6 % SHANE Comment: Interpretive Data Percent cell count reference ranges are not reported, since discordance with absolute values may lead to misinterpretation of CBC data. Current Interpretive Data was last revised on 2017. Testing performed by: [address] [address] Basophil pct 0.1 % SHANE Comment: Interpretive Data Percent cell count reference ranges are not reported, since discordance with absolute values may lead to misinterpretation of CBC data. Current Interpretive Data was last revised on 2017. Testing performed by: [address] [address] Blood 10/25/2024 7:59 AM DOCUMENTATION ENGINEER 10/25/2024 8:02 AM DOCUMENTATION ENGINEER us Dutch Sutherland DO LAB BLOOD ORDERABLES Final R esult SHANE [address] [facility] Department [place] [address] * (ABNORMAL) CBC with auto differential (10/25/2024 7:59 AM DOCUMENTATION ENGINEER) WBC 9.4 3.8 - 9.9 K/cumm Comment:Testing performed by : [address] [address] Hgb 9.5(L) 13.0 - 17.5 g/dL SHANE Comment:Testing performed by : [address] [address] Hct 28.3(L) 38.9 - 50.3 % SHANE Comment:Testing performed by : [address], [address] Plt 361 150 - 400 K/cumm SHANE Comment:Testing performed by : [address], [address] MPV 11.5 9.1 - 12.3 fL SHANE Comment:Testing performed by : [address], [address] RBC 2.76(L) 4.30 - 5.80 M/cumm SHANE Comment:Testing performed by : [address], [address] MCV 102.5(H) 81.3 - 96.4 fL SHANE Comment:Testing performed by : [address], [address] MCH 34.4(H) 27.1 - 33.3 pg SHANE Comment:Testing performed by : [address], [address] MCHC 33.6 32.3 - 35.7 g/dL SHANE Comment:Testing performed by : [address], [address] RDW CV 25.6(H) 11.1 - 14.9 % SHANE Comment:Testing performed by : [address], [address] RDW SD 95.6(H) 35.7 - 48.1 fL SHANE Comment:Testing performed by : [address], [address] NRBC abs 0.09(H) 0.00 - 0.01 K/cumm SHANE Comment:Testing performed by : [address], [address] Blood 10/25/2024 7:59 AM DOCUMENTATION ENGINEER 10/25/2024 8:02 AM DOCUMENTATION ENGINEER Dutch L. Koko DO LAB BLOOD ORDERABLES Final R esult SHANE [address] [facility] Department [place] [address] * (ABNORMAL) Comprehensive metabolic panel (10/25/2024 7:59 AM DOCUMENTATION ENGINEER) Sodium 142 135 - 145 mmol/L Comment:Testing performed by : [address] [address] Potassium, pl 4.5 3.3 - 4.9 mmol/L SHANE Comment:Testing performed by : [address] [address] Chloride 103 97 - 110 mmol/L SHANE Comment:Testing performed by : [address] [address] CO2 28 22 - 32 mmol/L SHANE Comment:Testing performed by : [address] [address] Anion gap 11 2 - 15 mmol/L SHANE Comment:Testing performed by : [address] [address] BUN 44(H) 6 - 25 mg/dL SHANE Comment:Testing performed by : [address] [address] Creatinine 1.80(H) 0.80 - 1.30 mg/dL SHANE Comment:Testing performed by : [address] [address] Glucose 171 70 - 199 mg/dL SHANE [...] was last revised 2022. Testing performed by: [address] [address] Calcium 9.3 8.5 - 10.3 mg/dL SHANE Comment:Testing performed by : [address] [address] Bilirubin, total 0.5 0.1 - 1.2 mg/dL SHANE Comment:Testing performed by : [address] [address] Protein, pl 7.1 6.5 - 8.5 g/dL SHANE Comment:Testing performed by : [address], [address] Albumin 3.8 3.5 - 5.0 g/dL SHANE Comment:Testing performed by : [address], [address] Alk phos 70 40 - 130 Units/L SHANE Comment:Testing performed by : [address] [address] ALT 12 7 - 55 Units/L SHANE Comment:Testing performed by : [address] [address] AST 13 10 - 50 Units/L SHANE Comment:Testing performed by : [address] [address] Blood 10/25/2024 7:59 AM DOCUMENTATION ENGINEER 10/25/2024 8:02 AM DOCUMENTATION ENGINEER Dutch Sutherland DO LAB BLOOD ORDERABLES Final R esult Performing Organization Address City/State/[facility] Co de Phone Number SHANE [address] [facility] Department [place] [address] * CT Abdomen Pelvis WO Contrast (11/05/2023 6:24 AM DOCUMENTATION ENGINEER) Anatomical Region Laterality Modality Body N/A Computed Tomogra phy 11/05/2023 7:48 AM DOCUMENTATION ENGINEER Narrative 11/05/2023 8:05 AM DOCUMENTATION ENGINEER EXAM DESCRIPTION: CT ABDOMEN PELVIS WO CONTRAST [...] West Whiteside M.D. RB: NEHA Report ID: [id number] Reading Location: [place] [address] Procedure Note West Whiteside MD - 11/05/2023 [...] West Whiteside M.D. RB: NEHA Report ID: [id number] Reading Location: [id number] Khushbu Richardson MD IMG CT PROCEDURES Nuris l Result * POCT lipid panel (10/06/2023 12:00 PM DOCUMENTATION ENGINEER) Cholesterol, POC 102 mg/dL Comment:GLU = 144 HDL, POC 30 mg/dL Triglycerides, POC 101 mg/dL LDL Cholesterol POC 52 mg/dL Chol/HDL Ratio, POC 1.8 Non-HDL Cholesterol, POC 73 mg/dL Cholesterol Total, POC 102 mg/dL Capillary blood 10/06/2023 1 2:00 PM DOCUMENTATION ENGINEER Don Killian MD POINT OF CARE TEST O RDERABLES Final Result * (ABNORMAL) Hemoglobin A1c (08/22/2023 10:01 PM DOCUMENTATION ENGINEER) [facility] Hgb A1C 7.3(H) 4.0 - 5.6 % SHANE VIEYRA Estimated Average Glucose 163 mg/dL SHANE Comment: The ADA recommends reporting an estimated Average Glucose (eAG) with all Hemoglobin A1c results using the equation derived from a study of 507 normal and diabetic adults. Minority populations were underrepresented and children were not included. (Diabetes Care 31:1502-0313, 2008). The eAG is not equivalent to a fasting glucose. Blood 08/22/2023 10:0 1 PM DOCUMENTATION ENGINEER 08/22/2023 10:04 PM DOCUMENTATION ENGINEER Gonzalez Alcala MD LAB BLOOD ORDERABLES Final Re sult [facility] [address] [facility] Department [place] [address] * (ABNORMAL) Albumin Creatinine Ratio, Urine (07/04/2023 11:45 AM CDT) Pathologist [facility] Albumin Ur 60.1 mg/L SHANE Comment: Interpretive Data No reference range established. Current interpretive data was last revised 2019. Creatinine Ur 137.0 mg/dL SHANE VIEYRA Comment: Interpretive Data No reference range established. Current interpretive data was last revised 2019. Albumin Creatinine Ratio, Ur 44(H) 1 - 29 mg/g SHANE VIEYRA Urine 07/04/2023 11:4 5 AM CDT 07/04/2023 11:56 AM CDT us Don Pizarro MD LAB URINE ORDERABLES Final Resu lt SHANE VIEYRA [address] [facility] Department [place] [address] from Last 3 Months or Most Recently Relevant to Health Maintenance Insurance [facility] MEDICARE [employer] MEDICARE Advance Directives For more information, please contact: [phone] * Full Code (Latest Code Status on [...] 11:02 AM 01/25/2021 4:06 PM Care Teams Utility Gelatin Maker Relationship Specialty Start Date End Date Dane Birch MD [email or web address] [address] PCP - General Family Medicine 02/16/21 Dutch Sutherland DO [address] [place] [address] MEDICAL ONCOLOGY, [facility] [address] [place] [address] Medical Oncologist/Director Of Digital Platforms Hematology and Oncology 11/16/20 Favian Bliss MD [email or web address] [address] Consulting Physician Pulmonary Disease 07/01/23
[2025-01-19 15:18] VITALS: BP 120/51; PULSE 71; RESP 16; TEMP 36.6; O2SAT 95
== END 2025-01-19 16:04 | disposition short-term general hospital (02) ==
PROVIDERS: Emergency Provider Nurse Practitioner Family; PCP Family Medicine
DX: J90 Pleural effusion, not elsewhere classified (principal); R06.02 Shortness of breath; R05.9 Cough, unspecified; Z87.891 Personal history of nicotine dependence; J44.9 Chronic obstructive pulmonary disease, unspecified; I11.0 Hypertensive heart disease with heart failure; I50.30 Unspecified diastolic (congestive) heart failure; D46.9 Myelodysplastic syndrome, unspecified; E11.9 Type 2 diabetes mellitus without complications; Z79.4 Long term (current) use of insulin; Z85.46 Personal history of malignant neoplasm of prostate; Z85.828 Personal history of other malignant neoplasm of skin
CPT/HCPCS: 71046; 99213; G0463

== ENCOUNTER 2025-05-14 09:27 | Emergency (ER) | payer MEDICARE, SELFPAY ==
--- NOTE | 2025-05-14 09:29 | ED.URI ---
HPI - URI/Sore Throat General Chief Complaint: Upper Respiratory Infection Stated Complaint: Sore throat / wound on buttock Time Seen by Provider: 05/14/25 09:29 Source: patient Mode of arrival: ambulatory Limitations: no limitations History of Present Illness HPI Narrative: Matthew is an 80-year-old male patient presenting to the clinic today with complaints of a sore throat x1 month and a wound on his left buttock x2 months. States he is having some difficulty swallowing that started this morning and this prompted him to come in for evaluation of the sore throat. Also reports a nonhealing wound to his left buttock that is been there for approximately 2 months. He states the area is painful. Has been applying Vaseline to the area. The area is not draining. He is diabetic. Denies any shortness of breath or chest pain. Denies any other URI symptoms. MD elicited complaint: sore throat and nasal congestion Related Data Home Medications ?Medication ?Instructions ?Recorded ?Confirmed ?Last Taken ?Type folic acid 1 mg tablet 1 mg PO DAILY 12/18/20 01/19/25 09/23/24 History sildenafil 25 mg tablet (Viagra) 25 mg PO DAILY PRN ed 12/18/20 01/11/25 Unknown History famotidine 20 mg tablet 20 mg PO BID 01/08/24 01/19/25 Unknown History budesonide 160 mcg-glycopyr 9 2 inh inhalation BID 07/12/24 01/19/25 09/23/24 History mcg-formot 4.8 mcg/actuation HFA inhaler (Breztri Aerosphere) Allergies Allergy/AdvReac Type Severity Reaction Status Date / Time No Known Allergies Allergy Verified 05/14/25 09:36 Review of Systems Review of Systems: Pertinent positives per HPI. Patient denies any fever, chills, rash, headache, visual changes, dizziness, cough, shortness of breath, chest pain, palpitations, nausea, vomiting, diarrhea, constipation, abdominal pain, or any urinary issues. FORMERLY [facility], [facility] Past Medical History Medical History Hypertension COPD (chronic obstructive pulmonary disease) Dysphagia Diastolic congestive heart failure Elevated brain natriuretic peptide (BNP) level Right flank pain Skin cancer Colon cancer Shortness of breath Bilateral edema of lower extremity Decreased exercise tolerance Fatigue Cough MDS (myelodysplastic syndrome), low grade Diabetes type 2, controlled Screening for diabetic retinopathy (06/22/21) Mild diabetic retinopathy on 09/21/2024. mild retinopathy right eye 04/11/2025. BMI 30.0-30.9,adult Sun-damaged skin Prostate cancer radiation seeds Diabetic eye exam Dr. Clemente 06/29/2020 Surgical History Surgical History History of thoracentesis History of removal of pigmented skin lesion H/O colectomy Family History Family History Father Diabetes mellitus Heart disease Social History Social History Social History: He lives with and has 3 children. 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 Smoking packs per day: 1 Smoking cigarettes per day: 20.0 Years smoked: 20 Smoking pack-years: 20.00 Smoking status: Former smoker Tobacco type: cigarettes Second hand tobacco smoke exposure: No Alcohol intake: never Substance use: never Substance use type: does not use Lack of Transportation: No Lack of Food: Never True Current Housing: I Have Housing Concerned About Future Housing: No Difficulty Paying Gas/Electric Bills: No Difficulty Paying for Meds: No Currently Unemployed: No Education: Bachelor's Degree Difficulty w/ Childcare or Family Care: No Living arrangements: with family Spiritual care concerns: No Comments At the time of my signature, I reviewed and agree with the nursing past medical, surgical, social, and family history. There is no relevant family history pertinent to the patient complaint. Exam Narrative: General: Well-developed, thin, in no apparent distress Head: Normocephalic, atraumatic Eyes: Pupils equally round and reactive to light bilaterally, EOM intact, sclera and conjunctive clear, no discharge, lids normal Ears: TMs intact and clear, ear canals clear, no drainage, grossly hearing normal. Nose: Nares patent, no discharge, no inflammation, no sinus tenderness. Mouth: Oral pharynx red with white plaque-like lesions consistent with oral thrush without masses, good dentition, MMM. Neck: Supple, trachea midline, no enlargement of anterior or posterior cervical nodes, no thyroid masses or goiter palpable. Cardio: Regular rate and rhythm, s1 and s2 normal, no murmur appreciated. Resp: Diminished in the lower bases, no rhonchi, rales, wheezing or rubs Integumentary: [place], warm, and dry, 1 x 1cm type to pressure ulcer to the left mid low buttock, no redness, erythema, or swelling, no drainage, tender to palpation without induration. Course Course Emergency Course: Portions of this record may have been created with voice recognition software. Level of Care: Express Care Visit Vital Signs Vital signs: Vital Signs Temperature 36.2 C L 05/14/25 09:35 Pulse Rate 77 05/14/25 09:35 Respiratory Rate 24 H 05/14/25 09:35 Blood Pressure 126/55 L 05/14/25 09:35 Pulse Oximetry 91 05/14/25 09:35 Oxygen Delivery Room Air 05/14/25 09:35 Temperature 36.2 C L 05/14/25 09:35 Pulse Rate 77 05/14/25 09:35 Respiratory Rate 24 H 05/14/25 09:35 Blood Pressure 126/55 L 05/14/25 09:35 Pulse Oximetry 91 05/14/25 09:35 Oxygen Delivery Room Air 05/14/25 09:35 Vital signs reviewed MDM - URI/Sore Throat MDM Narrative Medical decision making narrative: At the time of visit patient is resting comfortably on the exam table. Patient appears to be nontoxic. Complaints of a sore throat x1 month and a wound on his left buttock x2 months. States he is having some difficulty swallowing that started this morning and this prompted him to come in for evaluation of the sore throat. Also reports a nonhealing wound to his left buttock that is been there for approximately 2 months. He states the area is painful. Has been applying Vaseline to the area. The area is not draining. He is diabetic. Denies any shortness of breath or chest pain. Denies any other URI symptoms. Patient reporting losing sense of smell/taste. On exam patient has red oropharynx with white plaque-like lesions consistent with oral thrush, 1 x 1cm type to pressure ulcer to the left mid low buttock, no redness, erythema, or swelling, no drainage, tender to palpation without induration. Strep and COVID test was ordered. Labs: Strep and COVID testing was negative in the clinic today. Plan: I suspect patient has oral thrush and a type 2 pressure ulcer to the left buttock. Recommend using barrier cream such as Vaseline to the wound at this time and follow-up with PCP for wound care referral. Will send in prescription for nystatin swish and swallow. Oxygen saturation 91% on room air. Patient denies any shortness of breath. Patient states this is his baseline at this time. He is able speak in full sentences without struggling to breathe. Supportive measures were discussed with the patient and they voiced understanding discharge instructions and agrees to treatment plan. Return precautions reviewed Differential Diagnosis Differential diagnosis: Likely upper respiratory infection, otitis media, sinusitis, viral infection, bronchitis, influenza, pharyngitis and other (Oral thrush, pressure ulcer, wound infection, cellulitis, leukoplakia) Lab Data Labs: Lab Results 05/14/25 05/14/25 Range/Units 09:58 10:03 POC SARS CoV-2 Ag Negative (Negative) POC Grp A Strep Screen Negative (Negative) Discharge Plan Discharge Clinical Impression: Candidiasis of mouth, Pressure ulcer of left buttock, stage 2 Patient Disposition: Home Condition: Stable Instructions: Antibiotic Form, Oral Candidiasis (ED), Pressure Injury (ED), Acute Wounds (ED) Additional Instructions: COVID and strep test were negative in the clinic today. I suspect you have oral thrush. Take nystatin swish and swallows direct Keep your buttocks clean and dry-may apply Vaseline to the area for a barrier Change positions every 2 hours May use a donut pillow to alleviate pressure on your bottom Follow-up with your PCP in 2-3 days for [id number] consult Patient Language: Citizen Of [place] Prescriptions: New nystatin 100,000 unit/mL suspension 5 ml PO QID 14 Days Qty: 280 0RF Rx Instructions: swish and swallow- retain in mouth for as long as possible No Action sildenafil [Viagra] 25 mg tablet 25 mg PO DAILY PRN (Reason: ed) Rx Instructions: administer 30 minutes to 4 hours before activity folic acid 1 mg tablet 1 mg PO DAILY famotidine 20 mg tablet 20 mg PO BID albuterol sulfate 90 mcg/actuation HFA aerosol inhaler 1 puff inhalation Q4H PRN (Reason: shortness of breath or wheezing) Qty: 8.5 5RF Breztri Aerosphere 160-9-4.8 mcg/actuation HFA aerosol inhaler 2 inh inhalation BID (DME) pen needle, diabetic [BD Ultra-Fine Mini Pen Needle] 31 gauge x 3/16 needle See Rx Instructions .Route Qty: 100 3RF Rx Instructions: As directed Bystolic 5 mg tablet 5 mg PO DAILY Qty: 90 3RF furosemide 20 mg tablet 40 mg PO DAILY Qty: 60 11RF Tradjenta 5 mg tablet 5 mg PO QAM Qty: 90 3RF insulin glargine [Lantus Solostar U-100 Insulin] 100 unit/mL (3 mL) insulin pen 20 unit subcut DAILY Qty: 6 3RF Follow-up/Referrals: Dane Birch MD [Primary Care Provider, [facility]] Time of Disposition: 10:00 Quality NIHSS Nursing Documentation ED NIHSS nursing documentation: reviewed/agree
--- OUTSIDE RECORDS SUMMARY | 2025-05-14 09:31 | XMS_ITS | Clinical Summary ---
Author Organization [facility] Address [address] [place] [id number] Care Team Providers Care [employer] Set Up Mechanic Name Role Phone Dane Birch MD Primary Care Provider [phone] Allergies No known active allergies Medications Choline Fenofibrate (FENOFIBRIC ACID) 135 MG CAPSULE DELAYED RELEASE Take 1 tablet by mouth daily. 02/18/2019 Active folic acid 1 MG tablet Take 1 mg by mouth daily. 1 01/26/2019 Active LEVEMIR FLEXTOUCH 100 UNIT/ML flextouch PEN Inject 60 Units into the skin daily. 10/27/2018 Active ONGLYZA 5 MG Tab Take 1 tablet by mouth daily. 02/18/2019 Active BYSTOLIC 5 MG tablet Take 1 tablet by mouth daily. 02/18/2019 Active sildenafil 100 MG tablet Take 100 mg by mouth daily as needed. 4 02/18/2019 Active Social History Tobacco Use Types Packs/Day Years Used Date Smoking Tobacco: Never Smokeless Tobacco: Never Alcohol Use Standard Drinks/Week Comments No 0 (1 standard drink = 0.6 oz pur e alcohol) AUDIT-C Answer Date Recorded Frequency of Alcohol Consumption Never 03/19/2019 Average Number of Drinks Not on file 019 Frequency of Binge Drinking Not on file 03/01 Sex and Gender Information Value Date Recorded Sex Assigned at Not on file Legal Sex Male 5:47 PM CDT Gender Identity Not on file Sexual Orientation Not on file Last Filed Vital Signs Vital Sign Reading Time Taken Comments Blood Pressure 108/63 03/19/2019 10:31 AM CDT Pulse 82 03/19/2019 10:31 AM CDT Temperature 36.6 C (97.8 F) 03/19/2019 10:31 AM CDT Respiratory Rate 18 03/19/2019 10:31 AM CDT Oxygen Saturation 98% 03/19/2019 10:31 AM CDT Inhaled Oxygen Concentration - - Weight 88.5 kg (195 lb) 03/19/2019 10:31 AM CDT Height 170.2 cm (5' 7) 03/19/2019 10:31 AM CDT Body Mass Index 30.54 03/19/2019 10:31 AM CDT Plan of Treatment Health Maintenance Due Date Last Done Comments DTaP, Tdap and Td Vaccines ( 1 - Tdap) 01/06/1963 Pneumococcal Vaccine: 50+ Years (1 of 1 - PCV) 01/06/1994 Annual Medicare Wellness Visit 01/06/2009 Zoster Vaccines (2 of 3) 01/30/2018 12/05/2017 RSV Immunization or 60+ Years (1 - 1-dose 75+ series) 01/06/2019 COVID-19 Vaccine ( - 2024-2 6 season) 2025 08/22/2021, 11/22/2020, 10/25/2020 Meningococcal B Vaccine Aged Out No l onger eligible based on patient's age to complete this topic Meningococcal Vaccine Aged Out No brunilda mela eligible based on patient's age to complete this topic RSV Immunizations Under 20 Months Aged Out No longer eligible b ased on patient's age to complete [place] [address] [employer] Care Teams [employer] Set Up Mechanic Relationship Specialty Start Date End Date Dane Birch MD [address] [place] [address] [address] [place] [address] PCP - General FAMILY PRACTICE 07/22/24
--- OUTSIDE RECORDS SUMMARY | 2025-05-14 09:31 | XMS_ITS | Clinical Summary ---
Author Organization [facility] Address [address] [place] [address] Care Team Providers Care Registered Art Therapist Name Role Phone Dutch Sutherland DO Unavailable [phone] Dane Birch MD Primary Care Provider [phone] Favian Bliss MD Unavailable [phone] Allergies No known active allergies Medications nebivoloL (BYSTOLIC) 5 mg tablet Take 1 tablet (5 mg total) by mouth daily 12/06/19 18 Active LEVEMIR FLEXTOUCH U-100 INSULN 100 unit/mL (3 mL) insulin pen Inject 30 Units under the skin nightly 18-20 units 05/13/20 18 Active Tradjenta 5 mg tablet Take 1 tablet (5 mg total) by mouth every morning 01/09/20 22 Active famotidine (PEPCID) 20 mg tablet Take 1 tablet (20 mg total) by mouth daily 30 tablet 2 07/09/20 23 Active albuterol HFA (PROVENTIL HFA,VENTOLIN HFA,PROAIR HFA) 90 mcg/actuation inhaler Inhale 2 puffs 2 (two) times a day 1 each 1 08/25/20 23 Active Additional Information Patient not taking.Reported on 02/11/2024 fluticasone propionate (FLONASE) 50 mcg/actuation nasal spray Administer 1 spray into each nostril 2 (two) times a day 1 each 08/25/20 23 Active acetaminophen ER (TYLENOL) 650 mg 8 hr tablet Take 1 tablet (650 mg total) by mouth every 8 (eight) hours as needed for pain Active furosemide (LASIX) 20 mg tablet Take 2 tablets (40 mg total) by mouth daily 60 tablet 11/06/19 24 Active ipratropium-albut Jessica (DUO-NEB) 0.5-2.5 mg/3 mL nebulizer solutionIndicatio ns:Chronic Obstructive Pulmonary Disease with Bronchospasms Take 3 mL by nebulization every 6 (six) hours as needed for wheezing or shortness of breath 360 mL 3 02/11/20 24 Active Denta 5000 Plus 1.1 % cream USE 2 TIMES DAILY. BRUSH AND SPIT OUT EXCESS. DO NOT RINSE WITH WATER AFTER 06/04/20 24 Active LANTUS 100 unit/mL (3 mL) pen for injection 07/21/20 24 Active spironolactone (ALDACTONE) 25 mg tablet Take 1 tablet by mouth twice daily 60 tablet 11/02/19 25 Active modafiniL (PROVIGIL) 100 mg tabletIndications :MDS (myelodysplastic syndrome) (HCC) Take 1 tablet (100 mg total) by mouth daily 30 tablet 12/14/19 25 Active Additional Information Patient not taking.Reported on 03/07/2025 budesonide-glycop yr-formoterol (Breztri Aerosphere) 160-9-4.8 mcg/actuation inhaler Inhale 2 puffs 2 (two) times a day Rinse mouth with water after use, do not swallow 11 g 6 02/25/20 25 Active folic acid (FOLVITE) 1 mg tabletIndications :Anemia, unspecified type,Macrocytic anemia Take 1 tablet by mouth once daily 90 tablet 04/05/20 25 Active Active Problems Patient Care Coordination No te [...] on Epoetin alpha- EPBX injections which started 92648 units weekly [place] the [place] [address] units weekly since he was not having any response to the 11669 unit dose. 10. Earlier in the spring [...] in April, patient was hospitalized twice at [facility] for symptomatic recurrent right-sided pleural effusion. [...] flow cytometry specimen was examined for internal ethanol quality leader purposes. Flow cytometry was performed using antibodies to the following cellular antigens: CD45, CD34, CD19, CD20, Haughton, Lambda, CD10, CD5, CD200, CD38, CD16, CD7, [...] flow cytometry specimen was examined for internal ethanol quality leader purposes. Flow cytometry was performed using antibodies to the following cellular antigens: CD45, CD34, CD19, CD20, Haughton, Lambda, CD10, CD5, CD200, CD38, CD2, CD3, CD4, CD7, CD8, CD56, TCR-GD. Total antigens analyzed: 17 Additional flow cytometry was performed to further characterize T-lymphocytes using antibodies to the following cellular antigens: CD45, CD3, CD52, CD25, CD30. Total antigens analyzed: 5 He is here for further surgical evaluation and discussion. 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, [...] (11/23/2020): Added automatically from request for surgery [id number] MDS (myelodysplastic syndrome) 05/30/2019 Macrocytic anemia 03/09/2018 Encounters Date Type Department Care Team Description 05/09/2025 10:00 AM CDT Infusion [facility] at [address] [address] MDS (myelodysplastic syndrome) (HCC) (Primary Dx) 05/09/2025 9:30 AM CDT Lab [facility] at [address] [address] MDS (myelodysplastic syndrome) (HCC) 04/18/2025 10:30 AM CDT Infusion [facility] at [address] [address] MDS (myelodysplastic syndrome) (HCC) (Primary Dx) 04/18/2025 10:00 AM CDT Lab [facility] at [address] [address] MDS (myelodysplastic syndrome) (HCC) 03/28/2025 10:00 AM CDT Infusion [facility] at [address] [address] MDS (myelodysplastic syndrome) (HCC) (Primary Dx) 03/28/2025 9:30 AM CDT Lab [facility] at [address] [address] MDS (myelodysplastic syndrome) (HCC) 03/07/2025 2:00 PM CDT Infusion [facility] at [address] [address] MDS (myelodysplastic syndrome) (HCC) (Primary Dx) 03/07/2025 1:30 PM CDT Office Visit [facility] [address] [place] [phone] Dutch Sutherland DO MDS (myelodysplastic syndrome) (HCC) (Primary Dx) 03/07/2025 1:00 PM CDT Lab [facility] at [address] [address] MDS (myelodysplastic syndrome) (HCC) 02/14/2025 10:45 AM CDT Infusion [facility] at [address] [address] MDS (myelodysplastic syndrome) (HCC) (Primary Dx) 02/14/2025 10:15 AM CDT Lab [facility] at [address] [address] MDS (myelodysplastic syndrome) (HCC) from Last 3 Months Immunizations Immunization Administration Dates Next Due Moderna SARS-CoV-2 Monovalent Vaccination (12+ Y RS) 11/22/2020,10/25/2020 ZOSTER LIVE 12/05/2017 Surgical History Surgery Date Site/Laterality Comments US GUIDED BIOPSY LYMPH NODE SUPERFICIAL LEFT 05/12/2023 N/A US GUIDED THORACENTESIS 05/12/2023 N/A US GUIDED THORACENTESIS 05/30/2023 N/A US GUIDED THORACENTESIS 06/20/2023 N/A THORACENTESIS Right x 2 in April 2023 at [facility] EYE SURGERY Bilateral cataract removal PROSTATE [...] ear COPD (chronic obstructive pu lmonary disease) Former smoker Anemia Type 2 diabetes mellitus Hypertensive heart disease w ithout heart failure [...] Tobacco: Never Tobacco Cessation:Counseling Given: Not Answered [facility] Utilities Answer Date Recorded In the past 12 months has e [email or web address], gas, oil, or water [employer] threatened to shut off services in your home? No 11/04/2023 Social Connection and Isolation Panel Answer Date Recorded In a typical week, how many times do you talk on the phone with family, friends, or neighbors? Three times a week 11/04/2023 How often do you get togethe r with friends or relatives? Three times a week 11/04/2023 How often do you attend chur ch or baptism services? More than 4 times per year 11/04/2023 Do you belong to any clubs o r organizations such as muslim groups, unions, fraternal or athletic groups, or [...] place to sleep or slept in a snf (including now)? No 11/04/2023 Personal Safety Answer Date Recorded Have you ever been in or are you currently in a harmful physical or emotional relationship or is someone making you feel afraid or unsafe? 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 Gender Identity Not on file Sexual Orientation Not on file Obstetrics History Last Filed Vital Signs Vital Sign Reading Time Taken Comments Blood Pressure 118/70 05/09/2025 9:59 AM CDT Pulse 64 05/09/2025 10:29 AM CDT Temperature 36.4 C (97.6 F) 05/09/2025 10:29 AM CDT Respiratory Rate 18 05/09/2025 10:29 AM CDT Oxygen Saturation 94% 05/09/2025 10:29 AM CDT Inhaled Oxygen Concentration - - Weight 67.7 kg (149 lb 4 oz) 05/09/2025 9:59 AM CDT Height 170.2 cm (5' 7) 02/09/2025 9:37 AM CDT Body Mass Index 23.38 02/09/2025 9:37 AM CDT Plan of Treatment Health Maintenance Due Date Last Done Comments Depression Screening 1945 Dilated Eye Exam 1945 Foot Exam 1945 DTaP/Tdap/Td Vaccine (1 - Tdap) 01/06/1955 Hepatitis B Screening 01/06/1962 Pneumococcal vaccine 65+ (1 of 2 - PCV) 01/06/1963 Well Visit 65+ 01/06/2009 Zoster Vaccine (1 of 2) 01/30/2018 12/05/2017 Hemoglobin A1C 02/21/2024 08/22/2023, 05/03, 10/07/2022 Albumin Creatinine Ratio, Urine 07/04/2024 , 10/07/2022 Lipid Panel 10/06/2024 10/06/2023 Fall Risk Assessment 11/05/2024 11/06/2023 Covid-19 Vaccine (4 - 2024-2 6 season) 2025 08/22/2021, 11/22/2020, 10/25/2020 Influenza Vaccine (#1) 2025 eGFR 05/09/2026 05/09/2025, 04/01, 03/28/2025, Additional history exists Abdominal Aortic Aneurysm (A AA) Screen Completed 11/05/2023, 02/19/2023 Procedures Procedure Name Priority Date/Time Associated Diagnosis Comments EGFR Routine 05/09/2025 9:15 AM CDT MDS (myelodysplastic syndrome) (HCC) DIFFERENTIAL AUTO Routine 05/09/2025 9:1 5 AM CDT MDS (myelodysplastic syndrome) (HCC) CBC WITH AUTO DIFFERENTIAL Routine 05/09/2025 9:15 AM CDT MDS (myelodysplastic syndrome) (HCC) COMPREHENSIVE METABOLIC PANEL Routine 05/09/2025 9:15 AM CDT MDS (myelodysplastic syndrome) (HCC) EGFR Routine 04/18/2025 10:29 AM CDT MDS (myelodysplastic syndrome) (HCC) DIFFERENTIAL AUTO Routine 04/18/2025 10: 29 AM CDT MDS (myelodysplastic syndrome) (HCC) CBC WITH AUTO DIFFERENTIAL Routine 04/18/2025 10:29 AM CDT MDS (myelodysplastic syndrome) (HCC) COMPREHENSIVE METABOLIC PANEL Routine 04/18/2025 10:29 AM CDT MDS (myelodysplastic syndrome) (HCC) EGFR Routine 03/28/2025 9:24 AM CDT MDS (myelodysplastic syndrome) (HCC) DIFFERENTIAL AUTO Routine 03/28/2025 9:2 4 AM CDT MDS (myelodysplastic syndrome) (HCC) CBC WITH AUTO DIFFERENTIAL Routine 03/28/2025 9:24 AM CDT MDS (myelodysplastic syndrome) (HCC) COMPREHENSIVE METABOLIC PANEL Routine 03/28/2025 9:24 AM CDT MDS (myelodysplastic syndrome) (HCC) BLOOD SMEAR REVIEW Routine 03/07/2025 1: 02 PM CDT MDS (myelodysplastic syndrome) (HCC) EGFR Routine 03/07/2025 1:02 PM CDT MDS (myelodysplastic syndrome) (HCC) DIFFERENTIAL AUTO Routine 03/07/2025 1:0 2 PM CDT MDS (myelodysplastic syndrome) (HCC) CBC WITH AUTO DIFFERENTIAL Routine 03/07/2025 1:02 PM CDT MDS (myelodysplastic syndrome) (HCC) COMPREHENSIVE METABOLIC PANEL Routine 03/07/2025 1:02 PM CDT MDS (myelodysplastic syndrome) (HCC) EGFR Routine 02/14/2025 10:12 AM CDT MDS (myelodysplastic syndrome) (HCC) DIFFERENTIAL AUTO Routine 02/14/2025 10: 12 AM CDT MDS (myelodysplastic syndrome) (HCC) CBC WITH AUTO DIFFERENTIAL Routine 02/14/2025 10:12 AM CDT MDS (myelodysplastic syndrome) (HCC) COMPREHENSIVE METABOLIC PANEL Routine 02/14/2025 10:12 AM CDT MDS (myelodysplastic syndrome) (HCC) CT ABDOMEN PELVIS WO CONTRAST IP Routine 11/05/2023 6:24 AM WHIPPER POCT LIPID PANEL Routine 10/06/2023 12:0 0 PM WHIPPER Lipid screening HEMOGLOBIN A1C Routine 08/22/2023 10:01 PM WHIPPER ALBUMIN CREATININE RATIO, URINE Routine 07/04/2023 11:45 AM CDT from Last 3 Months or Most Recently Relevant to Health Maintenance Results * (ABNORMAL) eGFR (05/09/2025 9:15 AM CDT) eGFR 50(L) >=60 mL/min/1. 73 m2 Comment: Interpretive Data [...] was last reviewed 2021. Testing performed by: [address] [address] Blood 05/09/2025 9:15 AM CDT 05/09/2025 9:17 AM CDT us Sally Brand [employer] LAB BLOOD ORDERABLES [facility] Department [place] [address] * (ABNORMAL) Differential, auto (05/09/2025 9:15 AM CDT) Neutrophil abs 5.97 1.50 - 6.50 K/cumm Comment:Testing performed by : [address] [address] Imm gran abs 0.18(H) 0.00 - 0.10 K/cumm SHANE Comment:Testing performed by : [address] [address] Lymphocyte abs 1.90 0.80 - 3.30 K/cumm SHANE Comment:Testing performed by : [address] [address] Monocyte abs 0.94(H) 0.20 - 0.80 K/cumm SHANE Comment:Testing performed by : [address] [address] Eosinophil abs 0.03 0.00 - 0.50 K/cumm SHANE Comment:Testing performed by : [address] [address] Basophil abs 0.02 0.00 - 0.10 K/cumm SHANE Comment:Testing performed by : [address] [address] Neutrophil pct 66.1 % SHANE Comment: Interpretive Data Percent cell count reference ranges are not reported, since discordance with absolute values may lead to misinterpretation of CBC data. Current Interpretive Data was last revised on 2017. Testing performed by: [address] [address] Imm gran pct 2.0 % SHANE Comment: Interpretive Data Percent cell count reference ranges are not reported, since discordance with absolute values may lead to misinterpretation of CBC data. Current Interpretive Data was last revised on 2017. Testing performed by: [address] [address] Lymphocyte pct 21.0 % SHANE Comment: Interpretive Data Percent cell count reference ranges are not reported, since discordance with absolute values may lead to misinterpretation of CBC data. Current Interpretive Data was last revised on 2017. Testing performed by: [address] [address] Monocyte pct 10.4 % SHANE Comment: Interpretive Data Percent cell count reference ranges are not reported, since discordance with absolute values may lead to misinterpretation of CBC data. Current Interpretive Data was last revised on 2017. Testing performed by: [address] [address] Eosinophil pct 0.3 % SHANE Comment: Interpretive Data Percent cell count reference ranges are not reported, since discordance with absolute values may lead to misinterpretation of CBC data. Current Interpretive Data was last revised on 2017. Testing performed by: [address] [address] Basophil pct 0.2 % SHANE Comment: Interpretive Data Percent cell count reference ranges are not reported, since discordance with absolute values may lead to misinterpretation of CBC data. Current Interpretive Data was last revised on 2017. Testing performed by: [address] [address] Blood 05/09/2025 9:15 AM CDT 05/09/2025 9:17 AM CDT us Sally Brand [employer] LAB BLOOD ORDERABLES Final Re sult SH[facility] [address] [facility] Department [place] [address] * (ABNORMAL) CBC with auto differential (05/09/2025 9:15 AM CDT) WBC 9.04 3.80 - 9.90 K/cumm Comment:Testing performed by : [address] [address] Hgb 11.0(L) 13.0 - 17.5 g/dL SHANE Comment:Testing performed by : [address] [address] Hct 33.4(L) 38.9 - 50.3 % SHANE Comment:Testing performed by : [address] [address] Plt 294 150 - 400 K/cumm SHANE Comment:Testing performed by : [address] [address] MPV 11.8 9.1 - 12.3 fL SHANE Comment:Testing performed by : [address] [address] RBC 3.19(L) 4.30 - 5.80 M/cumm SHANE Comment:Testing performed by : [address] [address] MCV 104.7(H) 81.3 - 96.4 fL SHANE Comment:Testing performed by : [address] [address] MCH 34.5(H) 27.1 - 33.3 pg SHANE VIEYRA Comment:Testing performed by : [address] [address] MCHC 32.9 32.3 - 35.7 g/dL SHANE Comment:Testing performed by : [address] [address] RDW CV 24.5(H) 11.1 - 14.9 % SHANE VIEYRA Comment:Testing performed by : [address] [address] RDW SD 94.4(H) 35.7 - 48.1 fL SHANE VIEYRA Comment:Testing performed by : [address] [address] NRBC abs 0.08(H) 0.00 - 0.01 K/cumm SHANE Comment:Testing performed by : [address] [address] ANC Prelim 5.97 1.50 - 6.50 K/cumm SHANE Comment: Interpretive Data The rapid ANC is a preliminary automated count and may vary from the final ANC (Neut Abs) reported in the WBC differential that follows. Current interpretive data was last revised 2024. Testing performed by: [address] [address] Blood 05/09/2025 9:15 AM CDT 05/09/2025 9:17 AM CDT us Sally Brand [employer] LAB BLOOD ORDERABLES Final Re sult [facility] [address] [facility] Department of Laboratories [place], [place] [id number] * (ABNORMAL) Comprehensive metabolic panel (05/09/2025 9:15 AM CDT) Sodium 143 135 - 145 mmol/L Comment:Testing performed by : [address] [address] Potassium, pl 4.7 3.3 - 4.9 mmol/L SHANE VIEYRA Comment:Testing performed by : [address] [address] Chloride 106 97 - 110 mmol/L SHANE VIEYRA Comment:Testing performed by : [address] [address] CO2 29 22 - 32 mmol/L SHANE VIEYRA Comment:Testing performed by : [address] [address] Anion gap 8 2 - 15 mmol/L SHANE Comment:Testing performed by : [address] [address] BUN 27(H) 6 - 25 mg/dL SHANE Comment:Testing performed by : [address] [address] Creatinine 1.40(H) 0.80 - 1.30 mg/dL SHANE Comment:Testing performed by : [address] [address] Glucose 168 70 - 199 mg/dL SHANE Comment: Interpretive [...] was last revised 2022. Testing performed by: [address] [address] Calcium 9.1 8.5 - 10.3 mg/dL SHANE Comment:Testing performed by : [address] [address] Bilirubin, total 0.7 0.1 - 1.2 mg/dL SHANE Comment:Testing performed by : [address] [address] Protein, pl 7.0 6.5 - 8.5 g/dL SHANE Comment:Testing performed by : [address] [address] Albumin 3.5 3.5 - 5.0 g/dL SHANE Comment:Testing performed by : [address] [address] Alk phos 63 40 - 130 Units/L SHANE Comment:Testing performed by : [address] [address] ALT 11 7 - 55 Units/L SHANE VIEYRA Comment:Testing performed by : [facility], [address] [place] [address]., [address] AST 14 10 - 50 Units/L SHANE Comment:Testing performed by : [facility], [address] [place] [address]., [address] Blood 05/09/2025 9:15 AM CDT 05/09/2025 9:17 AM CDT Sally Brand [employer] LAB BLOOD ORDERABLES Final Re sult [facility] [address] [facility] Department [place] [address] * (ABNORMAL) eGFR (04/18/2025 10:29 AM CDT) eGFR 50(L) >=60 mL/min/1. 73 m2 Comment: Interpretive Data [...] was last reviewed 2021. Testing performed by: [address] [address] Blood 04/18/2025 10:2 9 AM CDT 04/18/2025 10:30 AM CDT Sally Brand NP LAB BLOOD ORDERABLES Final Re sult [facility] [address] [facility] Department [place] [address] * (ABNORMAL) Differential, auto (04/18/2025 10:29 AM CDT) Neutrophil abs 5.68 1.50 - 6.50 K/cumm Comment:Testing performed by : [address] [address] Imm gran abs 0.12(H) 0.00 - 0.10 K/cumm SHANE Comment:Testing performed by : [address] [address] Lymphocyte abs 2.49 0.80 - 3.30 K/cumm SHANE Comment:Testing performed by : [address] [address] Monocyte abs 0.88(H) 0.20 - 0.80 K/cumm SHANE Comment:Testing performed by : [address] [address] Eosinophil abs 0.06 0.00 - 0.50 K/cumm SHANE Comment:Testing performed by : [address] [address] Basophil abs 0.02 0.00 - 0.10 K/cumm SHANE Comment:Testing performed by : [address] [address] Neutrophil pct 61.5 % SHANE Comment: Interpretive Data Percent cell count reference ranges are not reported, since discordance with absolute values may lead to misinterpretation of CBC data. Current Interpretive Data was last revised on 2017. Testing performed by: [address] [address] Imm gran pct 1.3 % SHANE Comment: Interpretive Data Percent cell count reference ranges are not reported, since discordance with absolute values may lead to misinterpretation of CBC data. Current Interpretive Data was last revised on 2017. Testing performed by: [address] [address] Lymphocyte pct 26.9 % SHANE Comment: Interpretive Data Percent cell count reference ranges are not reported, since discordance with absolute values may lead to misinterpretation of CBC data. Current Interpretive Data was last revised on 2017. Testing performed by: [address] [address] Monocyte pct 9.5 % SHANE Comment: Interpretive Data Percent cell count reference ranges are not reported, since discordance with absolute values may lead to misinterpretation of CBC data. Current Interpretive Data was last revised on 2017. Testing performed by: [address] [address] Eosinophil pct 0.6 % SHANE Comment: Interpretive Data Percent cell count reference ranges are not reported, since discordance with absolute values may lead to misinterpretation of CBC data. Current Interpretive Data was last revised on 2017. Testing performed by: [address] [address] Basophil pct 0.2 % SHANE Comment: Interpretive Data Percent cell count reference ranges are not reported, since discordance with absolute values may lead to misinterpretation of CBC data. Current Interpretive Data was last revised on 2017. Testing performed by: [address] [address] Blood 04/18/2025 10:2 9 AM CDT 04/18/2025 10:30 AM CDT us Sally Brand [employer] LAB BLOOD ORDERABLES Final Re sult [facility] [address] [facility] Department [place] [address] * (ABNORMAL) CBC with auto differential (04/18/2025 10:29 AM CDT) WBC 9.25 3.80 - 9.90 K/cumm Comment:Testing performed by : [address] [address] Hgb 10.7(L) 13.0 - 17.5 g/dL SHANE Comment:Testing performed by : [address] [address] Hct 32.8(L) 38.9 - 50.3 % SHANE Comment:Testing performed by : [address] [address] Plt 254 150 - 400 K/cumm SHANE Comment:Testing performed by : [address] [address] MPV 11.2 9.1 - 12.3 fL SHANE Comment:Testing performed by : [address], [address] RBC 3.13(L) 4.30 - 5.80 M/cumm SHANE Comment:Testing performed by : [address], [address] MCV 104.8(H) 81.3 - 96.4 fL SHANE Comment:Testing performed by : [address] [address] MCH 34.2(H) 27.1 - 33.3 pg SHANE Comment:Testing performed by : [address] [address] MCHC 32.6 32.3 - 35.7 g/dL SHANE Comment:Testing performed by : [address], [address] RDW CV 24.4(H) 11.1 - 14.9 % SHANE Comment:Testing performed by : [address], [address] RDW SD 94.4(H) 35.7 - 48.1 fL SHANE Comment:Testing performed by : [address] [address] NRBC abs 0.06(H) 0.00 - 0.01 K/cumm SHANE Comment:Testing performed by : [address] [address] ANC Prelim 5.68 1.50 - 6.50 K/cumm SHANE Comment: Interpretive Data The rapid ANC is a preliminary automated count and may vary from the final ANC (Neut Abs) reported in the WBC differential that follows. Current interpretive data was last revised 2024. Testing performed by: [address] [address] Blood 04/18/2025 10:2 9 AM CDT 04/18/2025 10:30 AM CDT us Sally Brand [employer] LAB BLOOD ORDERABLES [facility] Department [place] [address] * (ABNORMAL) Comprehensive metabolic panel (04/18/2025 10:29 AM CDT) Sodium 141 135 - 145 mmol/L Comment:Testing performed by : [address] [address] Potassium, pl 5.2(H) 3.3 - 4.9 mmol/L SHANE Comment:Testing performed by : [address] [address] Chloride 105 97 - 110 mmol/L SHANE Comment:Testing performed by : [address] [address] CO2 28 22 - 32 mmol/L SHANE Comment:Testing performed by : [address] [address] Anion gap 8 2 - 15 mmol/L SHANE Comment:Testing performed by : [address] [address] BUN 24 6 - 25 mg/dL SHANE Comment:Testing performed by : [address] [address] Creatinine 1.40(H) 0.80 - 1.30 mg/dL SHANE Comment:Testing performed by : [address] [address] Glucose 206(H) 70 - 199 mg/dL SHANE Comment: Interpretive [...] was last revised 2022. Testing performed by: [address] [address] Calcium 9.2 8.5 - 10.3 mg/dL SHANE Comment:Testing performed by : [address] [address] Bilirubin, total 0.6 0.1 - 1.2 mg/dL SHANE Comment:Testing performed by : [address] [address] Protein, pl 7.1 6.5 - 8.5 g/dL SHANE Comment:Testing performed by : [address] [address] Albumin 3.6 3.5 - 5.0 g/dL SHANE Comment:Testing performed by : [address] [address] Alk phos 63 40 - 130 Units/L SHANE Comment:Testing performed by : [address] [address] ALT 10 7 - 55 Units/L SHANE Comment:Testing performed by : [address] [address] AST 15 10 - 50 Units/L SHANE Comment:Testing performed by : [address] [address] Blood 04/18/2025 10:2 9 AM CDT 04/18/2025 10:30 AM CDT us Sally Brand [employer] LAB BLOOD ORDERABLES Final Re sult [facility] [address] [facility] Department of Laboratories [place], [place] [id number] * (ABNORMAL) eGFR (03/28/2025 9:24 AM CDT) eGFR 55(L) >=60 mL/min/1. 73 m2 Comment: Interpretive Data [...] was last reviewed 2021. Testing performed by: [address] [address] [address] Blood 03/28/2025 9:24 AM CDT 03/28/2025 9:32 AM CDT us Sally Brand [employer] LAB BLOOD ORDERABLES Final Re sult [facility] [address] [facility] [place] [address] * (ABNORMAL) Differential, auto (03/28/2025 9:24 AM CDT) Pathologist [facility] Neutrophil abs 8.42(H) 1.50 - 6.50 K/cumm Comment:Testing performed by : [address] [address] Imm gran abs 0.23(H) 0.00 - 0.10 K/cumm SHANE Comment:Testing performed by : [address] [address] Lymphocyte abs 2.52 0.80 - 3.30 K/cumm SHANE Comment:Testing performed by : [address] [address] Monocyte abs 1.27(H) 0.20 - 0.80 K/cumm [facility] Comment:Testing performed by : [address] [address] Eosinophil abs 0.09 0.00 - 0.50 K/cumm [facility] Comment:Testing performed by : [address] [address] Basophil abs 0.03 0.00 - 0.10 K/cumm [facility] Comment:Testing performed by : [address] [address] Neutrophil pct 67.1 % [facility] Comment: Interpretive Data Percent cell count reference ranges are not reported, since discordance with absolute values may lead to misinterpretation of CBC data. Current Interpretive Data was last revised on 2017. Testing performed by: [address] [address] Imm gran pct 1.8 % [facility] Comment: Interpretive Data Percent cell count reference ranges are not reported, since discordance with absolute values may lead to misinterpretation of CBC data. Current Interpretive Data was last revised on 2017. Testing performed by: [address] [address] Lymphocyte pct 20.1 % [facility] Comment: Interpretive Data Percent cell count reference ranges are not reported, since discordance with absolute values may lead to misinterpretation of CBC data. Current Interpretive Data was last revised on 2017. Testing performed by: [address] [address] Monocyte pct 10.1 % [facility] [place] Comment: Interpretive Data Percent cell count reference ranges are not reported, since discordance with absolute values may lead to misinterpretation of CBC data. Current Interpretive Data was last revised on 2017. Testing performed by: [address] [address] Eosinophil pct 0.7 % [facility] Comment: Interpretive Data Percent cell count reference ranges are not reported, since discordance with absolute values may lead to misinterpretation of CBC data. Current Interpretive Data was last revised on 2017. Testing performed by: [address] [address] Basophil pct 0.2 % [facility] VIEYRA Comment: Interpretive Data Percent cell count reference ranges are not reported, since discordance with absolute values may lead to misinterpretation of CBC data. Current Interpretive Data was last revised on 2017. Testing performed by: [address] [address] Blood 03/28/2025 9:24 AM CDT 03/28/2025 9:32 AM CDT us Sally Brand [employer] LAB BLOOD ORDERABLES Final Re sult [facility] [place] [address] * (ABNORMAL) CBC with auto differential (03/28/2025 9:24 AM CDT) WBC 12.56(H) 3.80 - 9.90 K/cumm Comment:Testing performed by : [address] [address] Hgb 10.3(L) 13.0 - 17.5 g/dL SH[facility] VIEYRA Comment:Testing performed by : [address] [address] Hct 31.5(L) 38.9 - 50.3 % [facility] VIEYRA Comment:Testing performed by : [address] [address] Plt 340 150 - 400 K/cumm SHANE VIEYRA Comment:Testing performed by : [address] [address] MPV 11.5 9.1 - 12.3 fL [facility] VIEYRA Comment:Testing performed by : [address] [address] RBC 2.99(L) 4.30 - 5.80 M/cumm SHANE VIEYRA Comment:Testing performed by : [address] [address] MCV 105.4(H) 81.3 - 96.4 fL SHANE Comment:Testing performed by : [address] [address] MCH 34.4(H) 27.1 - 33.3 pg SHANE VIEYRA Comment:Testing performed by : [address] [address] MCHC 32.7 32.3 - 35.7 g/dL SHANE Comment:Testing performed by : [address] [address] RDW CV 25.2(H) 11.1 - 14.9 % SHANE Comment:Testing performed by : [address] [address] RDW SD 96.7(H) 35.7 - 48.1 fL SHANE Comment:Testing performed by : [address] [address] NRBC abs 0.17(H) 0.00 - 0.01 K/cumm SHANE Comment:Testing performed by : [address] [address] ANC Prelim 8.42(H) 1.50 - 6.50 K/cumm SHANE Comment: Interpretive Data The rapid ANC is a preliminary automated count and may vary from the final ANC (Neut Abs) reported in the WBC differential that follows. Current interpretive data was last revised 2024. Testing performed by: [address] [address] Blood 03/28/2025 9:24 AM CDT 03/28/2025 9:32 AM CDT us Sally Brand [employer] LAB BLOOD ORDERABLES Final Re sult [facility] [address] [facility] Department of Laboratories [place], [place] [id number] * (ABNORMAL) Comprehensive metabolic panel (03/28/2025 9:24 AM CDT) Sodium 143 135 - 145 mmol/L Comment:Testing performed by : [address], [place]., [address] Potassium, pl 4.6 3.3 - 4.9 mmol/L [facility] [place] Comment:Testing performed by : [address] [address] Chloride 107 97 - 110 mmol/L SHANE Comment:Testing performed by : [address], [place]., [address] CO2 27 22 - 32 mmol/L SHANE Comment:Testing performed by : [address], [place]., [address] Anion gap 9 2 - 15 mmol/L [facility] Comment:Testing performed by : [address], [place]., [address] BUN 25 6 - 25 mg/dL [facility] Comment:Testing performed by : [address], [place]., [address] Creatinine 1.30 0.80 - 1.30 mg/dL SHANE Comment:Testing performed by : [address], [place]., [address] Glucose 220(H) 70 - 199 mg/dL [facility] Comment: Interpretive Data Fasting glucose >/= 126 [...] was last revised 2022. Testing performed by: [address] [address] Calcium 8.9 8.5 - 10.3 mg/dL SHANE Comment:Testing performed by : [address], [place]., [address] Bilirubin, total 0.6 0.1 - 1.2 mg/dL [facility] [place] Comment:Testing performed by : [address] [address] Protein, pl 7.0 6.5 - 8.5 g/dL SHANE Comment:Testing performed by : [address] [address] Albumin 3.5 3.5 - 5.0 g/dL SHANE Comment:Testing performed by : [address] [address] Alk phos 60 40 - 130 Units/L SHANE Comment:Testing performed by : [address] [address] ALT 10 7 - 55 Units/L SHANE Comment:Testing performed by : [address] [address] AST 13 10 - 50 Units/L SHANE Comment:Testing performed by : [address] [address] Blood 03/28/2025 9:24 AM CDT 03/28/2025 9:32 AM CDT us Sally Brand [employer] LAB BLOOD ORDERABLES Final Re sult [facility] [address] [facility] Department [place] [address] * (ABNORMAL) Blood smear review (03/07/2025 1:02 PM CDT) RBC morphology Consistent with RBC Indicies Comment:Testing performed by : [address] [address] Anisocytosis Moderate(A) SHANE Comment:Testing performed by : [address] [address] Macrocytes 8-15/HPF(A) SHANE Comment:Testing performed by : [address] [address] Platelet estimate Adequate SHANE Comment:Testing performed by : [address] [address] Blood 03/07/2025 1:02 PM CDT 03/07/2025 1:07 PM CDT Sally Brand [employer] LAB BLOOD ORDERABLES Final Re sult Performing Organization Address [facility] [[email or web address]] Co de Phone Number [facility] [place] [address] * (ABNORMAL) eGFR (03/07/2025 1:02 PM CDT) eGFR 50(L) >=60 mL/min/1. 73 m2 Comment: Interpretive Data [...] was last reviewed 2021. Testing performed by: [address] [address] Blood 03/07/2025 1:02 PM CDT 03/07/2025 1:07 PM CDT Sally Brand NP LAB BLOOD ORDERABLES Final Re sult [facility] [place] [address] * (ABNORMAL) Differential, auto (03/07/2025 1:02 PM CDT) Neutrophil abs 4.21 1.50 - 6.50 K/cumm Comment:Testing performed by : [address] [address] Imm gran abs 0.26(H) 0.00 - 0.10 K/cumm [facility] Comment:Testing performed by : [address] [address] Lymphocyte abs 2.79 0.80 - 3.30 K/cumm [facility] [place] Comment:Testing performed by : [address] [address] Monocyte abs 1.14(H) 0.20 - 0.80 K/cumm [facility] Comment:Testing performed by : [address], [place]., [address] Eosinophil abs 0.06 0.00 - 0.50 K/cumm [facility] Comment:Testing performed by : [address] [address] Basophil abs 0.02 0.00 - 0.10 K/cumm [facility] Comment:Testing performed by : [address] [address] Neutrophil pct 49.7 % [facility] Comment: Interpretive Data Percent cell count reference ranges are not reported, since discordance with absolute values may lead to misinterpretation of CBC data. Current Interpretive Data was last revised on 2017. Testing performed by: [address] [address] Imm gran pct 3.1 % [facility] Comment: Interpretive Data Percent cell count reference ranges are not reported, since discordance with absolute values may lead to misinterpretation of CBC data. Current Interpretive Data was last revised on 2017. Testing performed by: [address] [address] Lymphocyte pct 32.9 % [facility] [place] Comment: Interpretive Data Percent cell count reference ranges are not reported, since discordance with absolute values may lead to misinterpretation of CBC data. Current Interpretive Data was last revised on 2017. Testing performed by: [address] [address] Monocyte pct 13.4 % [facility] Comment: Interpretive Data Percent cell count reference ranges are not reported, since discordance with absolute values may lead to misinterpretation of CBC data. Current Interpretive Data was last revised on 2017. Testing performed by: [address] [address] Eosinophil pct 0.7 % SHANE Comment: Interpretive Data Percent cell count reference ranges are not reported, since discordance with absolute values may lead to misinterpretation of CBC data. Current Interpretive Data was last revised on 2017. Testing performed by: [address] [address] Basophil pct 0.2 % [facility] Comment: Interpretive Data Percent cell count reference ranges are not reported, since discordance with absolute values may lead to misinterpretation of CBC data. Current Interpretive Data was last revised on 2017. Testing performed by: [address] [address] Blood 03/07/2025 1:02 PM CDT 03/07/2025 1:07 PM CDT us Sally Brand [employer] LAB BLOOD ORDERABLES Final Re sult [place] [id number] [facility] Department [place] [address] * (ABNORMAL) CBC with auto differential (03/07/2025 1:02 PM CDT) WBC 8.48 3.80 - 9.90 K/cumm Comment:Testing performed by : [address] [address] Hgb 9.9(L) 13.0 - 17.5 g/dL SHANE Comment:Testing performed by : [address] [address] Hct 30.6(L) 38.9 - 50.3 % SHANE Comment:Testing performed by : [address] [address] Plt 310 150 - 400 K/cumm SHANE Comment:Testing performed by : [address] [address] MPV 11.7 9.1 - 12.3 fL [facility]ANE VIEYRA Comment:Testing performed by : [address] [address] RBC 2.91(L) 4.30 - 5.80 M/cumm SHANE Comment:Testing performed by : [address] [address] MCV 105.2(H) 81.3 - 96.4 fL SHANE Comment:Testing performed by : [address] [address] MCH 34.0(H) 27.1 - 33.3 pg SHANE Comment:Testing performed by : [address] [address] MCHC 32.4 32.3 - 35.7 g/dL SHANE Comment:Testing performed by : [address] [address] RDW CV 25.1(H) 11.1 - 14.9 % SHANE Comment:Testing performed by : [address] [address] RDW SD 96.9(H) 35.7 - 48.1 fL SHANE Comment:Testing performed by : [address] [address] NRBC abs 0.08(H) 0.00 - 0.01 K/cumm SHANE Comment:Testing performed by : [address] [address] ANC Prelim 4.21 1.50 - 6.50 K/cumm SHANE Comment: Interpretive Data The rapid ANC is a preliminary automated count and may vary from the final ANC (Neut Abs) reported in the WBC differential that follows. Current interpretive data was last revised 2024. Testing performed by: [address] [address] Blood 03/07/2025 1:02 PM CDT 03/07/2025 1:07 PM CDT us Sally Brand [employer] LAB BLOOD ORDERABLES Final Re sult SH[facility] [address] [facility] Department [place] [address] * (ABNORMAL) Comprehensive metabolic panel (03/07/2025 1:02 PM CDT) Sodium 143 135 - 145 mmol/L Comment:Testing performed by : [facility], [address] [place] [address]., [address] Potassium, pl 5.3(H) 3.3 - 4.9 mmol/L SHANE Comment:Testing performed by : [address] [address] Chloride 107 97 - 110 mmol/L SHANE Comment:Testing performed by : [address] [address] CO2 29 22 - 32 mmol/L SHANE Comment:Testing performed by : [address] [address] Anion gap 7 2 - 15 mmol/L SHANE Comment:Testing performed by : [address] [address] BUN 26(H) 6 - 25 mg/dL SHANE Comment:Testing performed by : [address] [address] Creatinine 1.40(H) 0.80 - 1.30 mg/dL SHANE Comment:Testing performed by : [address] [address] Glucose 140 70 - 199 mg/dL SHANE Comment: Interpretive [...] was last revised 2022. Testing performed by: [address] [address] Calcium 9.3 8.5 - 10.3 mg/dL SHANE Comment:Testing performed by : [address] [address] Bilirubin, total 0.4 0.1 - 1.2 mg/dL SHANE Comment:Testing performed by : [address] [address] Protein, pl 7.1 6.5 - 8.5 g/dL SHANE Comment:Testing performed by : [address] [address] Albumin 3.5 3.5 - 5.0 g/dL SHANE Comment:Testing performed by : [address] [address] Alk phos 61 40 - 130 Units/L SHANE Comment:Testing performed by : [address] [address] ALT 9 7 - 55 Units/L SHANE Comment:Testing performed by : [address] [address] AST 13 10 - 50 Units/L SHANE Comment:Testing performed by : [address] [address] Blood 03/07/2025 1:02 PM CDT 03/07/2025 1:07 PM CDT us Sally Brand [employer] LAB BLOOD ORDERABLES Final Re sult [facility] [address] [facility] Department [place] [address] * (ABNORMAL) eGFR (02/14/2025 10:12 AM CDT) eGFR 43(L) >=60 mL/min/1. 73 m2 [...] was last reviewed 2021. Testing performed by: [address] [address] Blood 02/14/2025 10:1 2 AM CDT 02/14/2025 10:19 AM CDT us Sally Brand [employer] LAB BLOOD ORDERABLES Final Re sult SHANE [address] [facility] Department [place] [address] * (ABNORMAL) Differential, auto (02/14/2025 10:12 AM CDT) Neutrophil abs 5.74 1.50 - 6.50 K/cumm Comment:Testing performed by : [address] [address] Imm gran abs 0.19(H) 0.00 - 0.10 K/cumm SHANE Comment:Testing performed by : [address] [address] Lymphocyte abs 2.83 0.80 - 3.30 K/cumm SHANE Comment:Testing performed by : [address] [address] Monocyte abs 0.78 0.20 - 0.80 K/cumm SHANE Comment:Testing performed by : [address] [address] Eosinophil abs 0.12 0.00 - 0.50 K/cumm SHANE Comment:Testing performed by : [address] [address] Basophil abs 0.01 0.00 - 0.10 K/cumm SHANE Comment:Testing performed by : [address] [address] Neutrophil pct 59.3 % [facility] Comment: Interpretive Data Percent cell count reference ranges are not reported, since discordance with absolute values may lead to misinterpretation of CBC data. Current Interpretive Data was last revised on 2017. Testing performed by: [address] [address] Imm gran pct 2.0 % [facility] Comment: Interpretive Data Percent cell count reference ranges are not reported, since discordance with absolute values may lead to misinterpretation of CBC data. Current Interpretive Data was last revised on 2017. Testing performed by: [address] [address] Lymphocyte pct 29.3 % [facility] Comment: Interpretive Data Percent cell count reference ranges are not reported, since discordance with absolute values may lead to misinterpretation of CBC data. Current Interpretive Data was last revised on 2017. Testing performed by: [address] [address] Monocyte pct 8.1 % [facility] Comment: Interpretive Data Percent cell count reference ranges are not reported, since discordance with absolute values may lead to misinterpretation of CBC data. Current Interpretive Data was last revised on 2017. Testing performed by: [address] [address] Eosinophil pct 1.2 % [facility] Comment: Interpretive Data Percent cell count reference ranges are not reported, since discordance with absolute values may lead to misinterpretation of CBC data. Current Interpretive Data was last revised on 2017. Testing performed by: [address] [address] Basophil pct 0.1 % [facility] Comment: Interpretive Data Percent cell count reference ranges are not reported, since discordance with absolute values may lead to misinterpretation of CBC data. Current Interpretive Data was last revised on 2017. Testing performed by: [address] [address] Blood 02/14/2025 10:1 2 AM CDT 02/14/2025 10:19 AM CDT us Sally Brand [employer] LAB BLOOD ORDERABLES Final Re sult [facility] [address] [facility] Department [place] [address] * (ABNORMAL) CBC with auto differential (02/14/2025 10:12 AM CDT) WBC 9.67 3.80 - 9.90 K/cumm Comment:Testing performed by : [address] [address] Hgb 9.7(L) 13.0 - 17.5 g/dL SHANE Comment:Testing performed by : [address] [address] Hct 29.8(L) 38.9 - 50.3 % SHANE Comment:Testing performed by : [address] [address] Plt 326 150 - 400 K/cumm SHANE Comment:Testing performed by : [address] [address] MPV 11.4 9.1 - 12.3 fL SHANE Comment:Testing performed by : [address] [address] RBC 2.86(L) 4.30 - 5.80 M/cumm SHANE Comment:Testing performed by : [address] [address] MCV 104.2(H) 81.3 - 96.4 fL SHANE Comment:Testing performed by : [address] [address] MCH 33.9(H) 27.1 - 33.3 pg SHANE Comment:Testing performed by : [address] [address] MCHC 32.6 32.3 - 35.7 g/dL SHANE Comment:Testing performed by : [address] [address] RDW CV 25.7(H) 11.1 - 14.9 % SHANE VIEYRA Comment:Testing performed by : [address] [address] RDW SD 96.5(H) 35.7 - 48.1 fL [facility] VIEYRA Comment:Testing performed by : [address] [address] NRBC abs 0.10(H) 0.00 - 0.01 K/cumm SHANE Comment:Testing performed by : [address] [address] ANC Prelim 5.74 1.50 - 6.50 K/cumm SHANE Comment: Interpretive Data The rapid ANC is a preliminary automated count and may vary from the final ANC (Neut Abs) reported in the WBC differential that follows. Current interpretive data was last revised 2024. Testing performed by: [address] [address] Blood 02/14/2025 10:1 2 AM CDT 02/14/2025 10:19 AM CDT us Sally Brand [employer] LAB BLOOD ORDERABLES [facility] [address] [facility] Department of Laboratories [place], [place] [id number] * (ABNORMAL) Comprehensive metabolic panel (02/14/2025 10:12 AM CDT) Sodium 143 135 - 145 mmol/L Comment:Testing performed by : [address] [address] Potassium, pl 4.9 3.3 - 4.9 mmol/L SHANE VIEYRA Comment:Testing performed by : [address] [address] Chloride 106 97 - 110 mmol/L SHANE Comment:Testing performed by : [address] [address] CO2 28 22 - 32 mmol/L SH[facility] VIEYRA Comment:Testing performed by : [address] [address] Anion gap 9 2 - 15 mmol/L SHANE Comment:Testing performed by : [address] [address] BUN 23 6 - 25 mg/dL SHANE Comment:Testing performed by : [address] [address] Creatinine 1.60(H) 0.80 - 1.30 mg/dL SHANE Comment:Testing performed by : [address] [address] Glucose 211(H) 70 - 199 mg/dL SHANE [...] was last revised 2022. Testing performed by: [address] [address] Calcium 9.1 8.5 - 10.3 mg/dL SHANE Comment:Testing performed by : [address] [address] Bilirubin, total 0.4 0.1 - 1.2 mg/dL SHANE Comment:Testing performed by : [address] [address] Protein, pl 7.1 6.5 - 8.5 g/dL SHANE Comment:Testing performed by : [address] [address] Albumin 3.6 3.5 - 5.0 g/dL SHANE Comment:Testing performed by : [address] [address] Alk phos 70 40 - 130 Units/L SHANE Comment:Testing performed by : [address], [place]., [address] ALT 12 7 - 55 Units/L SHANE VIEYRA Comment:Testing performed by : [address] [address] AST 15 10 - 50 Units/L SH[facility] VIEYRA Comment:Testing performed by : [address] [address] Blood 02/14/2025 10:1 2 AM CDT 02/14/2025 10:19 AM CDT us Sally Brand [employer] LAB BLOOD ORDERABLES Final Re sult SHANE VIEYRA [address] [facility] [place] [address] * CT Abdomen Pelvis WO Contrast (11/05/2023 6:24 AM WHIPPER) Anatomical Region Laterality Modality Body N/A Computed Tomogra phy 11/05/2023 7:48 AM WHIPPER Narrative 11/05/2023 8:05 AM WHIPPER EXAM DESCRIPTION: CT ABDOMEN PELVIS WO CONTRAST [...] [place] Whiteside M.D. RB: NEHA Report ID: [id number] Reading Location: [id number] Procedure Note West Whiteside MD - 11/05/2023 [...] [place] Whiteside M.D. RB: NEHA Report ID: [id number] Reading Location: [id number] Khushbu Richardson MD IMG CT PROCEDURES Nuris l Result * POCT lipid panel (10/06/2023 12:00 PM WHIPPER) Cholesterol, POC 102 mg/dL Comment:GLU = 144 HDL, POC 30 mg/dL Triglycerides, POC 101 mg/dL LDL Cholesterol POC 52 mg/dL Chol/HDL Ratio, POC 1.8 Non-HDL Cholesterol, POC 73 mg/dL Cholesterol Total, POC 102 mg/dL Capillary blood 10/06/2023 1 2:00 PM WHIPPER Don Killian MD POINT OF CARE TEST O RDERABLES Final Result * (ABNORMAL) Hemoglobin A1c (08/22/2023 10:01 PM WHIPPER) Hgb A1C 7.3(H) 4.0 - 5.6 % SHANE Estimated Average Glucose 163 mg/dL SHANE Comment: The ADA recommends reporting an estimated Average Glucose (eAG) with all Hemoglobin A1c results using the equation derived from a study of 507 normal and diabetic adults. Minority populations were underrepresented and children were not included. (Diabetes Care 31:7832-6945, 2007). The eAG is not equivalent to a fasting glucose. Blood 08/22/2023 10:0 1 PM WHIPPER 08/22/2023 10:04 PM WHIPPER us Gonzalez Alcala MD LAB BLOOD ORDERABLES Final Re sult Performing Organization Address [facility] [[email or web address]] Co de Phone Number [address] [place] [address] * (ABNORMAL) Albumin Creatinine Ratio, Urine (07/04/2023 11:45 AM CDT) Albumin Ur 60.1 mg/L SHANE Comment: Interpretive Data No reference range established. Current interpretive data was last revised 2019. Creatinine Ur 137.0 mg/dL SHANE Comment: Interpretive Data No reference range established. Current interpretive data was last revised 2019. Albumin Creatinine Ratio, Ur 44(H) 1 - 29 mg/g SHANE Urine 07/04/2023 11:4 5 AM CDT 07/04/2023 11:56 AM CDT us Don Pizarro MD LAB URINE ORDERABLES Final Resu lt Performing Organization Address [facility] [[email or web address]] Co de Phone Number [address] [place], [place] [id number] from Last 3 Months or Most Recently Relevant to Health Maintenance Insurance [facility] MEDICARE [facility] MEDICARE Advance Directives For more information, please contact: [phone] * Full Code (Latest Code Status on [...] 11:02 AM 01/25/2021 4:06 PM Care Teams Registered Art Therapist Relationship Specialty Start Date End Date Dane Birch MD [address] [address] PCP - General Family Medicine 02/16/21 Dutch Sutherland DO [address] [place] [address] MEDICAL ONCOLOGY, [address] [address] Medical Oncologist/Residential Installer Hematology and Oncology 11/16/20 Favian Bliss MD [address] [id number] Consulting Physician Pulmonary Disease 07/01/23
--- OUTSIDE RECORDS SUMMARY | 2025-05-14 09:31 | XMS_ITS ---
Author Organization [facility] Address [address] [place] [address] Care Team Providers Care Liquid Compounder Name Role Phone Dutch Sutherland DO Unavailable Dane Birch MD Primary Care Provider [phone] Favian Bliss MD Unavailable [phone] Active Problems Patient Care Coordination No te [...] on Epoetin alpha- EPBX injections which started 50882 units weekly [place] the [place] [address] [place] since [place] was not having any response to the 15219 unit dose. 10. Earlier in the spring [...] in April, patient was hospitalized twice at [facility] for symptomatic recurrent right-sided pleural [...] flow cytometry specimen was examined for internal food quality tester purposes. Flow cytometry was performed using antibodies to the following cellular antigens: CD45, CD34, CD19, CD20, Economy, Lambda, CD10, CD5, CD200, CD38, CD16, CD7, [...] flow cytometry specimen was examined for internal food quality tester purposes. 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 Therapy Complete Koko, Dutch L., DO EPOETIN ELIO-EPBX (RETACRIT) 11/17/2020 01/26/2021 No medications scheduled. Change in Level of Care Dutch Sutherland, DO DARBEPOETIN (ARANESP) INJECTION EVERY 3 WEEKS - MDS 11/17/2020 11/13/2020 No medications scheduled. Financial Dutch Sutherland, DO Lifetime Dose Tracking * Chemical Lifetime Dose Automatic Entry Manual Entr y Fluoro Time 1.8 minutes 1.8 minutes 0 minutes Air kerma at the reference point (Ka,r) 12.9 mGy 1 2.9 mGy 0 mGy
[2025-05-14 09:35] VITALS: BP 126/55; PULSE 77; RESP 24; TEMP 36.2; O2SAT 91
[2025-05-14 10:00] LABS: EDSTREPNEGPOS1 Negative (Negative)
[2025-05-14 10:05] LABS: EDCOVIDSCREEN Negative (Negative)
== END 2025-05-14 10:08 | disposition home or self-care (01) ==
PROVIDERS: Emergency Provider Nurse Practitioner Family; PCP Family Medicine
DX: B37.0 Candidal stomatitis (principal); L89.322 Pressure ulcer of left buttock, stage 2; Z20.822 Contact with and (suspected) exposure to COVID-19; Z87.891 Personal history of nicotine dependence; J44.9 Chronic obstructive pulmonary disease, unspecified; I11.0 Hypertensive heart disease with heart failure; I50.30 Unspecified diastolic (congestive) heart failure; E11.9 Type 2 diabetes mellitus without complications; Z79.4 Long term (current) use of insulin; D46.9 Myelodysplastic syndrome, unspecified; Z85.828 Personal history of other malignant neoplasm of skin; Z85.038 Personal history of other malignant neoplasm of large intestine; Z85.46 Personal history of malignant neoplasm of prostate; Z90.49 Acquired absence of other specified parts of digestive tract
CPT/HCPCS: 87426; 87880; 99213; G0463